=== PATIENT | female | born 1950 | race Two or more races ===

== ENCOUNTER 2020-02-13 10:00 | Outpatient (RCR) | payer MEDICARE, SELFPAY | END 2020-02-21 13:49 | disposition other institution (70) | LOC: HO.PT 10:00 | PROVIDERS: PCP Family Medicine; Visit Provider Family Medicine | DX: M54.5 Low back pain (principal); G89.29 Other chronic pain | CPT/HCPCS: 97110 ==

== ENCOUNTER 2020-02-15 10:34 | Outpatient (REF) | payer MEDICARE, SELFPAY ==
--- NOTE | 2020-02-15 | MM_ITS ---
EXAMINATION: MM SCREENING DIGITAL BREAST TOMOSYNTHESIS, BILATERAL CLINICAL INFORMATION: Screening. Asymptomatic. The lifetime risk of breast cancer based on the Jami score Model is 4.9%. COMPARISON: Mammography: February 09, 2019 and studies dating back to April 13, 2012 TECHNIQUE: Digital breast tomosynthesis is performed in both the craniocaudal and mediolateral oblique views along with computer-aided detection (CAD). Synthesized 2D images are generated from the tomosynthesis. FINDINGS: There are scattered areas of fibroglandular density (ACR BI-RADS breast composition Category b). There are no significant masses, abnormal calcifications, or other abnormalities. Stable nodular parenchymal pattern calcifications again seen. IMPRESSION: There are no significant changes from prior study. ASSESSMENT: BI-RADS 2: Benign RECOMMENDATION: Routine annual mammography screening. This patient's information was entered into a reminder system with a target due date for their next mammogram.
== END 2020-02-15 10:35 | disposition home or self-care (01) ==
LOC: HO.MAMMO 10:34
PROVIDERS: PCP Family Medicine; Visit Provider Family Medicine
DX: Z12.31 Encounter for screening mammogram for malignant neoplasm of breast (principal)
CPT/HCPCS: 77063; 77067

== ENCOUNTER 2020-08-08 10:28 | Outpatient (REF) | payer MEDICARE, SELFPAY ==
--- NOTE | ~2020-08-08 | MM_ITS ---
EXAMINATION: BONE DENSITOMETRY CLINICAL INDICATION: Screening for osteoporosis. COMPARISON: Baseline BD dated 11/07/2015. TECHNIQUE: Using a [employer] DXA System (software version: 13.1) manufactured by [email or web address], dual-energy x-ray absorptiometry was performed of the lumbar spine and left hip. The images are of good technical quality. Summary results are attached. FINDINGS: AP SPINE L1-L4: Current: BMD 1.119 g/cm2, Z-score 0.9, T-score -0.5, normal, 1.8% decrease from baseline (<5% change is not significant). Baseline: BMD 1.139 g/cm2. LEFT FEMUR, NECK: Current: BMD 0.910 g/cm2, Z-score 0.6, T-score -0.9, normal. Baseline: BMD 0.931 g/cm2. LEFT FEMUR, TOTAL: Current: BMD 0.995 g/cm2, Z-score 1.2, T-score -0.1, normal, 4.8% decrease from baseline (<5% change is not significant). Baseline: BMD 1.045 g/cm2. IDENTIFIED RISK FACTORS: Height loss, low calcium intake, family history (parental hip fracture), history of fracture (adult), menopause, hysterectomy. HISTORY OF FRACTURE: Other. MEDICATIONS: Vitamin D. MM/XR DEXA axial skeleton IMPRESSION: 1. DIAGNOSIS: Normal bone density based on the lowest T-score value of -0.9 in the femoral neck applying World Health Organization criteria. 2. 10-YEAR FRACTURE RISK PREDICTION, FRAX: Major osteoporotic fracture (clinical spine, forearm, hip or shoulder) 12.1%. Hip fracture 1.2%. 3. Treatment Recommendations: NOF guidelines recommend consideration for treatment in postmenopausal women and men age 50 and older presenting with the following: -A hip or vertebral (clinical or morphometric) fracture. -T-score less than or equal to -2.5 at the femoral neck or spine after appropriate evaluation to exclude secondary causes. -Low bone mass at the hip or spine and a 10-year fracture probability by FRAX of greater than or equal to 3% for hip fracture or greater than or equal to 20% for major osteoporotic fracture based on the [place] adapted WHO algorithm. 4. Other Recommendations: All treatment decisions require clinical judgment and consideration of individual patient factors, including patient preferences, comorbidities, previous drug use, risk factors not captured in the FRAX model (e.g. frailty, falls, vitamin D deficiency, increased bone turnover, interval significant decline in bone density) and possible under or overestimation of fracture risk by FRAX. FUTURE SCAN RECOMMENDATION: People with diagnosed cases of osteoporosis or at high risk for fracture should have regular bone mineral density tests. For patients eligible for Medicare, routine testing is allowed once every 2 years. The testing frequency can be increased to one year for patients who have rapidly progressing disease, those who are receiving or discontinuing medical therapy to restore bone mass, or have additional risk factors.
== END 2020-08-08 10:29 | disposition home or self-care (01) ==
LOC: HO.MAMMO 10:28
PROVIDERS: Visit Provider Family Medicine
DX: Z13.820 Encounter for screening for osteoporosis (principal); Z78.0 Asymptomatic menopausal state; R29.890 Loss of height; E83.51 Hypocalcemia; Z90.710 Acquired absence of both cervix and uterus
CPT/HCPCS: 77080

== ENCOUNTER → 2020-09-05 10:58 | Outpatient (BNVA) | payer MEDICARE, SELFPAY | PROVIDERS: PCP Family Medicine; Visit Provider Urology | DX: N39.41 Urge incontinence (principal); N39.0 Urinary tract infection, site not specified | CPT/HCPCS: 51798; 81002; 99212 ==

== ENCOUNTER → 2020-10-07 09:06 | Outpatient (BNVA) | payer MEDICARE, SELFPAY | PROVIDERS: PCP Family Medicine | DX: N39.0 Urinary tract infection, site not specified (principal); N39.41 Urge incontinence | CPT/HCPCS: 99212 ==

== ENCOUNTER → 2020-10-24 11:02 | Outpatient (BNVA) | payer OTHER, SELFPAY | PROVIDERS: PCP Family Medicine; Visit Provider Urology | DX: N39.41 Urge incontinence (principal); N39.0 Urinary tract infection, site not specified; N81.9 Female genital prolapse, unspecified | CPT/HCPCS: 52000; 99212 ==

== ENCOUNTER 2021-03-02 09:57 | Outpatient (REF) | payer MEDICARE, SELFPAY ==
--- NOTE | ~2021-03-02 | MM_ITS ---
EXAMINATION: MM SCREENING DIGITAL BREAST TOMOSYNTHESIS, BILATERAL CLINICAL INFORMATION: Screening. Asymptomatic. The lifetime risk of breast cancer based on the Tyrer-Cuzick Model is 5%. COMPARISON: Mammography: 02/15/2020, 02/09/2019, 02/01/2018 TECHNIQUE: Digital breast tomosynthesis is performed in both the craniocaudal and mediolateral oblique views along with computer-aided detection (CAD). Synthesized 2D images are generated from the tomosynthesis. Additional left MLO view is provided. FINDINGS: There are scattered areas of fibroglandular density (ACR BI-RADS breast composition Category b). There are no significant masses, abnormal calcifications, or other abnormalities. Background stromal markings are stable. There is small stable nodule anterior upper outer right breast. Again, there are scattered round dense vascular calcifications. No significant changes from prior studies. MM/MM tomosynthesis screening BI IMPRESSION: No mammographic evidence of malignancy. ASSESSMENT: BI-RADS 2: Benign RECOMMENDATION: Routine annual mammography screening. This patient's information was entered into a reminder system with a target due date for their next mammogram.
== END 2021-03-02 09:58 | disposition home or self-care (01) ==
LOC: HO.MAMMO 09:57
PROVIDERS: PCP Family Medicine; Visit Provider Family Medicine
DX: Z12.31 Encounter for screening mammogram for malignant neoplasm of breast (principal)
CPT/HCPCS: 77063; 77067

== ENCOUNTER 2021-04-03 09:55 | Outpatient (REF) | payer MEDICARE, SELFPAY ==
--- NOTE | ~2021-04-03 | XR_ITS ---
EXAMINATION: XR ANKLE, RIGHT CLINICAL INFORMATION: Right ankle pain. COMPARISON: None TECHNIQUE: AP, lateral, and mortise views of the right ankle. FINDINGS: There is no fracture or dislocation. The ankle mortise is congruent. Osteophyte formation along the ankle mortise. Diffuse soft tissue swelling. Small ankle joint effusion. Small heel spurs are noted. Osteophyte formation at the talonavicular joint. XR/XR ankle RT min 3V IMPRESSION: Mild degenerative changes of the ankle. Diffuse soft tissue swelling.
== END 2021-04-03 09:56 | disposition home or self-care (01) ==
LOC: HO.XRAY 09:55
PROVIDERS: PCP Family Medicine; Visit Provider Family Medicine
DX: M25.571 Pain in right ankle and joints of right foot (principal)
CPT/HCPCS: 73610

== ENCOUNTER 2021-04-28 11:00 | Outpatient (RCR) | payer MEDICARE, SELFPAY | END 2021-05-04 15:44 | disposition home or self-care (01) | LOC: HO.PT 11:00 | PROVIDERS: PCP Family Medicine; Visit Provider Family Medicine | DX: M25.512 Pain in left shoulder (principal) | CPT/HCPCS: 97110; 97140; 97161 ==

== ENCOUNTER 2021-07-01 13:21 | Outpatient (REF) | payer MEDICARE, SELFPAY ==
--- NOTE | ~2021-07-01 | US_ITS ---
EXAMINATION: US VENOUS ULTRASOUND WITH DOPPLER LOWER EXTREMITY, RIGHT CLINICAL INFORMATION: Right calf/ankle edema evaluate for DVT COMPARISON: There some bilateral venous reflux lower extremity from 03/15/2017 TECHNIQUE: Ultrasound of the deep veins is performed from the hip to the calf with compression sonography and color and pulse Doppler assessment. Spectral analysis with color-flow imaging is performed. FINDINGS: There is normal venous compression and respiratory variation and augmented flow. The visualized common femoral vein, superficial femoral vein, profunda femoral vein, popliteal vein, and the trifurcation region shows no evidence of deep venous thrombosis. There is no significant popliteal fossa cyst. Several mildly prominent lymph nodes are identified in the right groin, nonspecific though may reflect recent infectious/inflammatory etiology If the patient's symptoms persist, followup ultrasound in 5 days 7 days might be of value to exclude proximal propagation from a non-visualized calf vein. US/US venous duplex LE RT IMPRESSION: 1. No DVT demonstrated in the right lower extremity. 2. Several mildly prominent lymph nodes are identified in the right groin, nonspecific though may reflect recent infectious/inflammatory etiology.
== END 2021-07-01 13:22 | disposition home or self-care (01) ==
LOC: HO.US 13:21
PROVIDERS: PCP Family Medicine; Visit Provider Emergency Medicine
DX: R60.0 Localized edema (principal)
CPT/HCPCS: 93971

== ENCOUNTER 2021-11-20 11:55 | Outpatient (REF) | payer OTHER, SELFPAY ==
[2021-11-20 13:29] LABS: Estimated Average Glucose 105 mg/dL; Hemoglobin A1c % 5.3 %
== END 2021-11-20 11:56 | disposition home or self-care (01) ==
LOC: HO.LAB 11:55
PROVIDERS: PCP Family Medicine; Visit Provider Physician Assistant
DX: E11.40 Type 2 diabetes mellitus with diabetic neuropathy, unspecified (principal)
CPT/HCPCS: 36415; 83036

== ENCOUNTER 2022-01-01 11:00 | Outpatient (RCR) | payer OTHER, SELFPAY ==
[2021-12-04 11:12] VITALS: BP 143/71; PULSE 71; O2SAT 96
== END 2022-03-11 08:52 | disposition home or self-care (01) ==
LOC: HO.PT 11:00
PROVIDERS: PCP Family Medicine; Visit Provider Physician Assistant
DX: M21.41 Flat foot [pes planus] (acquired), right foot (principal)
CPT/HCPCS: 97110; 97162; 97530

== ENCOUNTER 2022-01-01 12:01 | Outpatient (REF) | payer OTHER, SELFPAY ==
--- NOTE | ~2022-01-01 | XR_ITS ---
EXAMINATION: XR FOREARM, RIGHT CLINICAL INFORMATION: Injury of right shoulder and upper arm COMPARISON: None TECHNIQUE: AP and lateral views of the right forearm were obtained. FINDINGS: The bones and soft tissues are normal. No fracture. Imaged portions of the elbow and wrist are unremarkable. XR/XR forearm RT 2V IMPRESSION: Normal right forearm.
== END 2022-01-01 12:02 | disposition home or self-care (01) ==
LOC: HO.XRAY 12:01
PROVIDERS: Absent Provider Family Medicine; PCP Family Medicine; Visit Provider Family Medicine
DX: M79.601 Pain in right arm (principal); S49.91XA Unspecified injury of right shoulder and upper arm, initial encounter
CPT/HCPCS: 73090

== ENCOUNTER 2022-03-09 09:58 | Outpatient (REF) | payer OTHER, SELFPAY ==
--- NOTE | ~2022-03-09 | MM_ITS ---
EXAMINATION: MM SCREENING DIGITAL BREAST TOMOSYNTHESIS, BILATERAL CLINICAL INFORMATION: Screening. Asymptomatic. COMPARISON: Mammography: March 02, 2021 and studies dating back to October 08, 2015 TECHNIQUE: Digital breast tomosynthesis is performed in both the craniocaudal and mediolateral oblique views along with computer-aided detection (CAD). Synthesized 2D images are generated from the tomosynthesis. FINDINGS: There are scattered areas of fibroglandular density (ACR BI-RADS breast composition Category b). There are no significant masses, abnormal calcifications, or other abnormalities. MM/MM tomosynthesis screening BI IMPRESSION: No significant changes from prior exam. ASSESSMENT: BI-RADS 1: Negative RECOMMENDATION: Routine annual mammography screening. This patient's information was entered into a reminder system with a target due date for their next mammogram.
== END 2022-03-09 09:59 | disposition home or self-care (01) ==
LOC: HO.MAMMO 09:58
PROVIDERS: PCP Family Medicine; Visit Provider Family Medicine
DX: Z12.31 Encounter for screening mammogram for malignant neoplasm of breast (principal)
CPT/HCPCS: 77063; 77067

== ENCOUNTER → 2022-03-24 08:07 | Outpatient (BNVA) | payer OTHER, SELFPAY | PROVIDERS: PCP Family Medicine; Visit Provider Urology | DX: N81.9 Female genital prolapse, unspecified (principal); N39.41 Urge incontinence | CPT/HCPCS: 99212 ==

== ENCOUNTER 2022-03-29 07:58 | Outpatient (RCR) | payer OTHER, SELFPAY | END 2022-03-30 14:15 | disposition home or self-care (01) | LOC: HO.WCC 07:58 | PROVIDERS: PCP Family Medicine; Visit Provider Physician Assistant | DX: L97.812 Non-pressure chronic ulcer of other part of right lower leg with fat layer exposed (principal); I73.9 Peripheral vascular disease, unspecified; I87.2 Venous insufficiency (chronic) (peripheral); R60.9 Edema, unspecified; R73.03 Prediabetes; I10 Essential (primary) hypertension; Z86.73 Personal history of transient ischemic attack (TIA), and cerebral infarction without residual deficits | CPT/HCPCS: 99213 ==

== ENCOUNTER 2022-09-13 08:36 | Outpatient (REF) | payer OTHER, SELFPAY ==
--- NOTE | ~2022-09-13 | MR_ITS ---
EXAMINATION: MR FOOT WITHOUT CONTRAST, RIGHT CLINICAL INFORMATION: Right foot pain and swelling. Midfoot osteoarthritis. Gout. COMPARISON: Right ankle radiographs dated 04/03/2021. TECHNIQUE: Multisequence MR imaging of the right foot was obtained without contrast on a high-field strength scanner. FINDINGS: BONE: Full-thickness articular cartilage loss with underlying subchondral cystic change and marginal osteophytes at the 2nd through 5th tarsometatarsal joints. Articular cartilage thinning with tiny marginal osteophytes at the hallux sesamoids. No metatarsal stress fracture or reaction. No concerning lytic or blastic osseous lesion. MUSCLES/TENDONS: The visualized flexor and extensor tendons are intact. No transverse tendon tear or tendon retraction. LIGAMENTS: Intact Lisfranc ligament. The plantar plates are intact. SOFT TISSUES: Prominent dorsal subcutaneous edema with more circumferential subcutaneous edema involving the toes. No organized fluid collection or abscess formation. MR/MR foot RT wo con IMPRESSION: 1. Prominent dorsal subcutaneous edema with more circumferential subcutaneous edema involving the toes. No organized fluid collection or abscess formation. 2. [id number] osteoarthritis at the 2nd through 5th tarsometatarsal joints as well as more mild osteoarthritis at the hallux sesamoids. 3. No acute osseous abnormality.
== END 2022-09-13 08:37 | disposition home or self-care (01) ==
LOC: HO.MRI 08:36
PROVIDERS: PCP Family Medicine; Visit Provider Family Medicine
DX: M79.671 Pain in right foot (principal)
CPT/HCPCS: 73718

== ENCOUNTER → 2022-09-16 11:05 | Outpatient (BNVA) | payer OTHER, SELFPAY | PROVIDERS: PCP Family Medicine; Visit Provider Nurse Practitioner Family | DX: M71.171 Other infective bursitis, right ankle and foot (principal); M79.604 Pain in right leg; M19.079 Primary osteoarthritis, unspecified ankle and foot; M25.571 Pain in right ankle and joints of right foot | CPT/HCPCS: 99202 ==

== ENCOUNTER 2022-09-16 11:48 | Emergency (ER) | payer OTHER, SELFPAY ==
--- NOTE | ~2022-09-16 | US_ITS ---
EXAMINATION: US VENOUS ULTRASOUND WITH DOPPLER LOWER EXTREMITY, RIGHT CLINICAL INFORMATION: Elevated d-dimer COMPARISON: None available. TECHNIQUE: Ultrasound of the deep veins is performed from the hip to the calf with compression sonography and color and pulse Doppler assessment. Spectral analysis with color-flow imaging is performed. FINDINGS: There is normal venous compression and respiratory variation and augmented flow. The visualized common femoral vein, superficial femoral vein, profunda femoral vein, popliteal vein, and the trifurcation region shows no evidence of deep venous thrombosis. Minimally prominent 3 x 1.8 x 0.8 cm lymph node present in the right groin. No Castro's cyst. If the patient's symptoms persist, followup ultrasound in 5 days 7 days might be of value to exclude proximal propagation from a non-visualized calf vein. US/US venous duplex LE RT IMPRESSION: No DVT demonstrated in the right lower extremity.
[2022-09-16 11:52] VITALS: BP 155/72; PULSE 70; RESP 20; TEMP 36.8; O2SAT 97; BMI 30.8
--- NOTE | 2022-09-16 11:54 | ED.GENADULT ---
HPI - General Adult General Chief complaint: Extremity Problem Stated complaint: wound infection Time Seen by Provider: 09/16/22 13:27 Related Data Home Medications Medication Instructions Recorded Confirmed acetaminophen 500 mg tablet 0 mg PO 09/05/20 03/24/22 allopurinol 100 mg tablet 100 mg PO DAILY 09/05/20 03/24/22 amlodipine 10 mg tablet 10 mg PO DAILY 09/05/20 03/24/22 aspirin 81 mg tablet,delayed 81 mg PO QAM 09/05/20 03/24/22 release cholecalciferol (vitamin D3) 25 25 mcg PO DAILY 09/05/20 03/24/22 mcg (1,000 unit) tablet isosorbide mononitrate 60 mg 60 mg PO DAILY 09/05/20 03/24/22 tablet,extended release 24 hr metoprolol succinate 25 mg 25 mg PO DAILY 09/05/20 03/24/22 tablet,extended release 24 hr omega-3 fatty acids-fish oil 340 1 cap PO QAM 09/05/20 03/24/22 mg-1,000 mg capsule rosuvastatin 5 mg tablet 5 mg PO BEDTIME 09/05/20 03/24/22 sertraline 25 mg tablet 25 mg PO DAILY 09/05/20 03/24/22 sertraline 50 mg tablet 50 mg PO DAILY 09/05/20 03/24/22 vibegron 75 mg tablet (Gemtesa) 0 mg PO 09/16/22 Previous Rx's Medication Instructions Recorded ciprofloxacin HCl 250 mg tablet 250 mg PO BID 14 days #28 tabs 09/05/20 Allergies Allergy/AdvReac Type Severity Reaction Status Date / Time progesterone [Progesterone] Allergy Mild SWELLING, Verified 09/16/22 11:16 itching and swelling, body edema quinapril [Accupril] Allergy Unknown Unknown Verified 09/16/22 11:16 [facility] Past Medical History Medical History Angina pectoris Benign essential hypertension Chest discomfort Coronary artery disease involving [place] coronary artery of [place] heart with angina pectoris Impaired fasting glucose Urgency incontinence Venous insufficiency Surgical History History of surgery Social History Social History Alcohol intake: never Patient Tobacco Use Status: Never used Tobacco Advance Directives: No Physical Exam ED Vital Signs: Vital Signs - 24 hr 09/16/22 11:52 09/16/22 15:42 Temperature 98.2 F 97 F Pulse Rate 70 68 Respiratory Rate 20 16 Blood Pressure 155/72 H 140/63 H Pulse Oximetry 97 93 Oxygen Delivery Method Room Air Room Air BMI result Body Mass Index 30.8 Course Course Course Narrative: This is an RME: Additional HPI, ROS, PE not included below will be deferred to primary provider. 72-year-old female presents with pain, swelling, redness and warmth right lower extremities told to come in by her PCP has tried topical antibiotic ointments and antifungal ointment with little to no relief. This has been going on for the past few weeks worsening. Denies chest pain, shortness of breath, fevers, chills, nausea, vomiting abdominal pain, headache, vision changes, dizziness and weakness. Physical exam there is 2+ nonpitting edema to the right lower extremity, normal left lower extremity. Palpable pulses pain plan basic labs, D-dimer. Medical Decision Making Lab Data 09/16/22 12:49 09/16/22 12:49 Labs: Lab Results 09/16/22 09/16/22 09/16/22 Range/Units 12:15 12:26 12:49 WBC 6.7 (4.8-10.8) X10*3/uL RBC 4.80 (4.20-5.50) X10*6/uL Hgb 13.3 (12.0-16.0) g/dl Hct 42.3 (37.0-47.0) % MCV 88.1 (80.0-98.0) fL MCH 27.7 (27.0-33.0) pg MCHC 31.4 (31.0-35.0) g/dl RDW 15.2 (11.0-16.0) % Plt Count 230 (160-400) X10*3/uL MPV 10.8 (9.4-12.3) fL Immature Gran % (Auto) 0.3 (0.0-0.4) % Neut % (Auto) 70.1 (45-73) % Lymph % (Auto) 19.2 L (20-40) % [place] % (Auto) 9.2 (2-11) % Eos % (Auto) 0.9 (0-4) % Baso % (Auto) 0.3 (0-2) % Lymph # (Auto) 1.3 (1.2-4.9) X10*3/uL [place] # (Auto) 0.6 (0.1-1.2) X10*3/uL Eos # (Auto) 0.1 (0.0-0.4) X10*3/uL Baso # (Auto) 0.0 (0.0-0.2) X10*3/uL Abs Immat Gran (auto) 0.02 (0.00-0.03) X10*3/uL Absolute Neuts (auto) 4.7 (2.0-8.3) x10*3/uL Absolute Nucleated RBC 0.000 (0.0-0.012) X10*3/uL Nucleated RBC % (auto) 0.0 (0.0-0.2) /100WBC D-Dimer High Sensitivty 353 NG/ML Sodium (135-145) mmol/L Potassium (3.3-5.1) mmol/L Chloride (96-108) mmol/L Carbon Dioxide (22-29) mmol/L Anion Gap (12-20) BUN (9-16) mg/dL Creatinine (0.5-1.4) mg/dL Estim Creat Clear Calc Estimated GFR Random Glucose (60-115) mg/dL Calcium (8.4-10.2) mg/dL Magnesium (1.6-2.6) mg/dL Total Bilirubin (0.0-1.0) mg/dL AST (5-31) U/L ALT (0-31) U/L Alkaline Phosphatase (39-117) U/L B-Natriuretic Peptide (<100) pg/mL Total Protein (6.5-8.0) g/dL Albumin (3.5-5.0) g/dL Urine Color Yellow Urine Appearance Clear Urine pH 6.5 (5.0-9.0) Ur Specific [place] 1.015 (1.005-1.025) Urine Protein Negative (Neg-Trace) mg/dL Urine Glucose (UA) Negative (Negative) mg/dL Urine Ketones Negative (Negative) mg/dL Urine Blood Negative (Negative) Urine Nitrite Negative (Negative) Ur Leukocyte Esterase Small (1+) H (Negative) Urine RBC 0-2 (0-2) /HPF Urine WBC 0-5 (0-5) /HPF Ur Squamous Epith Cells 6-10 (0-2) /HPF Urine Bacteria 2+ (None Seen) Hyaline Casts 0-2 (0-2) /LPF 09/16/22 09/16/22 Range/Units 12:49 12:49 WBC (4.8-10.8) X10*3/uL RBC (4.20-5.50) X10*6/uL Hgb (12.0-16.0) g/dl Hct (37.0-47.0) % MCV (80.0-98.0) fL MCH (27.0-33.0) pg MCHC (31.0-35.0) g/dl RDW (11.0-16.0) % Plt Count (160-400) X10*3/uL MPV (9.4-12.3) fL Immature Gran % (Auto) (0.0-0.4) % Neut % (Auto) (45-73) % Lymph % (Auto) (20-40) % [place] % (Auto) (2-11) % Eos % (Auto) (0-4) % Baso % (Auto) (0-2) % Lymph # (Auto) (1.2-4.9) X10*3/uL [place] # (Auto) (0.1-1.2) X10*3/uL Eos # (Auto) (0.0-0.4) X10*3/uL Baso # (Auto) (0.0-0.2) X10*3/uL Abs Immat Gran (auto) (0.00-0.03) X10*3/uL Absolute Neuts (auto) (2.0-8.3) x10*3/uL Absolute Nucleated RBC (0.0-0.012) X10*3/uL Nucleated RBC % (auto) (0.0-0.2) /100WBC D-Dimer High Sensitivty NG/ML Sodium 143 (135-145) mmol/L Potassium 4.4 (3.3-5.1) mmol/L Chloride 110 H (96-108) mmol/L Carbon Dioxide 24 (22-29) mmol/L Anion Gap 13 (12-20) BUN 16 (9-16) mg/dL Creatinine 0.74 (0.5-1.4) mg/dL Estim Creat Clear Calc 64.1 Estimated GFR > 60 Random Glucose 102 (60-115) mg/dL Calcium 9.1 (8.4-10.2) mg/dL Magnesium 2.4 (1.6-2.6) mg/dL Total Bilirubin 0.6 (0.0-1.0) mg/dL AST 18 (5-31) U/L ALT 15 (0-31) U/L Alkaline Phosphatase 88 (39-117) U/L B-Natriuretic Peptide 50 (<100) pg/mL Total Protein 7.2 (6.5-8.0) g/dL Albumin 4.1 (3.5-5.0) g/dL Urine Color Urine Appearance Urine pH (5.0-9.0) Ur Specific [place] (1.005-1.025) Urine Protein (Neg-Trace) mg/dL Urine Glucose (UA) (Negative) mg/dL Urine Ketones (Negative) mg/dL Urine Blood (Negative) Urine Nitrite (Negative) Ur Leukocyte Esterase (Negative) Urine RBC (0-2) /HPF Urine WBC (0-5) /HPF Ur Squamous Epith Cells (0-2) /HPF Urine Bacteria (None Seen) Hyaline Casts (0-2) /LPF Radiology Impression Discussion of test interpretation with radiology: I have reviewed the radiologist's reading. ( lower extremity ultrasound to rule out DVT.) Radiologist Impression: FINDINGS: There is normal venous compression and respiratory variation and augmented flow. The visualized common femoral vein, superficial femoral vein, profunda femoral vein, popliteal vein, and the trifurcation region shows no evidence of deep venous thrombosis. ? Minimally prominent 3 x 1.8 x 0.8 cm lymph node present in the right groin. No Castro's cyst. If the patient's symptoms persist, followup ultrasound in 5 days 7 days might be of value to exclude proximal propagation from a non-visualized calf vein. US/US venous duplex LE RT IMPRESSION: No DVT demonstrated in the right lower extremity. Discharge Plan Discharge Prescriptions: No Action cholecalciferol (vitamin D3) 25 mcg (1,000 unit) tablet 25 mcg PO DAILY sertraline 50 mg tablet 50 mg PO DAILY sertraline 25 mg tablet 25 mg PO DAILY amlodipine 10 mg tablet 10 mg PO DAILY acetaminophen 500 mg tablet 0 mg PO allopurinol 100 mg tablet 100 mg PO DAILY rosuvastatin 5 mg tablet 5 mg PO BEDTIME metoprolol succinate 25 mg tablet extended release 24 hr 25 mg PO DAILY isosorbide mononitrate 60 mg tablet extended release 24 hr 60 mg PO DAILY aspirin 81 mg tablet,delayed release (DR/EC) 81 mg PO QAM Fish Oil 340-1,000 mg capsule 1 cap PO QAM ciprofloxacin HCl 250 mg tablet 250 mg PO BID 14 Days Qty: 28 0RF Gemtesa 75 mg tablet 0 mg PO
[2022-09-16 12:45] LABS: Appearance Urine Clear; Color Urine Yellow; Glucose Urine UA Negative (Negative); Leukocyte Esterase Urine Small (1+) (Negative); Nitrite Urine Negative (Negative); PH 6.5 (5.0-9.0); Specific Gravity - Urine 1.015 (1.005-1.025); UMIC TRIGGER UACC YES; Urine Blood Negative (Negative); Urine Ketones Negative (Negative); Urine Protein Negative (Neg-Trace)
[2022-09-16 12:49] LABS: D Dimer High Sensitivity 353 NG/ML
[2022-09-16 12:56] LABS: MANUAL DIFF FLAG NO
[2022-09-16 13:03] LABS: Basophils Percent Auto 0.3 % (0-2); Eosinophils Absolute Auto 0.1 X10*3/uL (0.0-0.4); Eosinophils Percent Auto 0.9 % (0-4); Hematocrit 42.3 % (37.0-47.0); Hemoglobin 13.3 g/dl (12.0-16.0); Imm Gran Abs Auto 0.02 X10*3/uL (0.00-0.03); Imm Gran Pct Auto 0.3 % (0.0-0.4); Lymphocytes Absolute Auto 1.3 X10*3/uL (1.2-4.9); Lymphocytes Percent Auto 19.2 % (20-40); Mean Corpuscular HGB Conc 31.4 g/dl (31.0-35.0); Mean Corpuscular Hemoglobin 27.7 pg (27.0-33.0); Mean Corpuscular Volume 88.1 fL (80.0-98.0); Mean Platelet Volume 10.8 fL (9.4-12.3); Monocytes Absolute Auto 0.6 X10*3/uL (0.1-1.2); Monocytes Percent Auto 9.2 % (2-11); Neutrophils Absolute Auto 4.7 x10*3/uL (2.0-8.3); Neutrophils Percent Auto 70.1 % (45-73); Platelet Count 230 X10*3/uL (160-400); Red Cell Distribution Width 15.2 % (11.0-16.0); White Blood Count 6.7 X10*3/uL (4.8-10.8)
[2022-09-16 13:06] LABS: Bacteria Urine 2+ (None Seen); Hyaline Casts Urine 0-2 /LPF (0-2); RBC Urine 0-2 /HPF (0-2); UACC Culture Trigger YES; WBC Urine 0-5 /HPF (0-5)
[2022-09-16 13:18] LABS: Alanine Aminotransferase 15 U/L (0-31); Albumin Level 4.1 g/dL (3.5-5.0); Alkaline Phosphatase 88 U/L (39-117); Anion Gap 13 (12-20); Aspartate Amino Transferase 18 U/L (5-31); Bilirubin Total 0.6 mg/dL (0.0-1.0); Blood Urea Nitrogen 16 mg/dL (9-16); Calcium 9.1 mg/dL (8.4-10.2); Carbon Dioxide 24 mmol/L (22-29); Chloride 110 mmol/L (96-108); Creatinine Clr Calc Pharmacy 64.1; Estimated Glomerular Filt Rate > 60; Glucose Random 102 mg/dL (60-115); Magnesium 2.4 mg/dL (1.6-2.6); Potassium 4.4 mmol/L (3.3-5.1); Sodium 143 mmol/L (135-145); Total Protein 7.2 g/dL (6.5-8.0)
[2022-09-16 13:24] LABS: B Type Natriuretic Peptide 50 pg/mL (<100)
--- NOTE | 2022-09-16 15:25 | PC.NURSE ---
US at bedside
[2022-09-16 15:42] VITALS: BP 140/63; PULSE 68; RESP 16; TEMP 36.1; O2SAT 93
[2022-09-16] MEDS: Doxycycline Monohydrate 100 MG CAPSULE PO (16:31)
== END 2022-09-16 16:36 | disposition home or self-care (01) ==
PROVIDERS: Physician Assistant; Emergency Provider Student in an Organized Health Care Education/Training Program; PCP Family Medicine
DX: M71.171 Other infective bursitis, right ankle and foot (principal); M19.071 Primary osteoarthritis, right ankle and foot; M79.604 Pain in right leg; M25.571 Pain in right ankle and joints of right foot; R60.0 Localized edema; I10 Essential (primary) hypertension; Z79.899 Other long term (current) drug therapy
CPT/HCPCS: 36415; 80053; 81001; 83735; 83880; 85025; 85379; 87086; 93971; 99284

== ENCOUNTER → 2022-09-24 13:12 | Outpatient (BNVA) | payer OTHER, SELFPAY | PROVIDERS: PCP Family Medicine; Visit Provider Internal Medicine | DX: M25.571 Pain in right ankle and joints of right foot (principal) | CPT/HCPCS: 99212 ==

== ENCOUNTER 2022-11-30 19:04 | Outpatient (REF) | payer OTHER, SELFPAY ==
[2022-11-30 19:22] LABS: Appearance Urine Clear; Color Urine Yellow; Glucose Urine UA Negative (Negative); Leukocyte Esterase Urine Trace (Negative); Nitrite Urine Negative (Negative); PH 6.5 (5.0-9.0); UMIC TRIGGER UACC YES; Urine Blood Negative (Negative); Urine Ketones Negative (Negative); Urine Protein Negative (Neg-Trace)
[2022-11-30 19:29] LABS: Bacteria Urine None Seen (None Seen); Hyaline Casts Urine 0-2 /LPF (0-2); RBC Urine 0-2 /HPF (0-2); WBC Urine 0-5 /HPF (0-5)
== END 2022-11-30 19:05 | disposition home or self-care (01) ==
LOC: HO.HHCLNP 19:04
PROVIDERS: Visit Provider Family Medicine
DX: M54.50 Low back pain, unspecified (principal)
CPT/HCPCS: 81001

== ENCOUNTER 2023-03-16 09:41 | Outpatient (REF) | payer OTHER, SELFPAY ==
--- NOTE | ~2023-03-16 | MM_ITS ---
EXAMINATION: MM SCREENING DIGITAL BREAST TOMOSYNTHESIS, BILATERAL CLINICAL INFORMATION: Screening. Asymptomatic. COMPARISON: Mammography: This study is compared with prior exams dating back to 2016. TECHNIQUE: Digital breast tomosynthesis is performed in both the craniocaudal and mediolateral oblique views along with computer-aided detection (CAD). Synthesized 2D images are generated from the tomosynthesis. FINDINGS: There are scattered areas of fibroglandular density (ACR BI-RADS breast composition Category b). There are no significant masses, abnormal calcifications, or other abnormalities. MM/MM tomosynthesis screening BI IMPRESSION: No mammographic evidence of malignancy. ASSESSMENT: BI-RADS BI-RADS 1 - Negative RECOMMENDATION: Routine annual mammography screening. 1 year F/U This examination should not preclude the clinical evaluation of a suspicious palpable abnormality. This patient's information was entered into a reminder system with a target due date for their next mammogram.
== END 2023-03-16 09:42 | disposition home or self-care (01) ==
LOC: HO.MAMMO 09:41
PROVIDERS: PCP Family Medicine; Visit Provider Family Medicine
DX: Z12.31 Encounter for screening mammogram for malignant neoplasm of breast (principal)
CPT/HCPCS: 77063; 77067

== ENCOUNTER → 2023-03-16 09:45 | Outpatient (BNV) | payer OTHER, SELFPAY | PROVIDERS: PCP Family Medicine; Visit Provider Radiology Diagnostic Radiology | DX: Z12.31 Encounter for screening mammogram for malignant neoplasm of breast (principal) | CPT/HCPCS: 77063; 77067 ==

== ENCOUNTER 2023-03-22 09:22 | Outpatient (AMB) | payer OTHER, SELFPAY ==
--- NOTE | 2023-03-22 09:42 | MHC.OFFVIS ---
Intake Intake Visit Reasons: Prolapse- 1yr follow up Intake Note: Patient is Present for Follow Up Urology Medication: Estradiol, Gemtesa Antibiotic Allergies: None Blood Thinners: None Allergies progesterone [Progesterone] Allergy (Mild, Verified 09/24/22 13:26) SWELLING, itching and swelling, body edema quinapril [Accupril] Allergy (Unknown, Verified 09/24/22 13:26) Unknown HPI HPI Comments History of Present Illness Details Ariana is a pleasant female. She is a patient of Dr. Renteria. She is seen for the following urologic issues - urinary urgency - urinary frequency - urge incontinence Welsh translation provided in office by qualified medical center manager Had come off estradiol and has recurrence of urinary urgency Restart estradiol Urinary urgency continues to respond to combination of tolterodine with estradiol 2 times a week to urethra 6 month follow-up Urge incontinence Had responded to Myrbetriq 50 mg p.o. b.i.d. but associated with headaches Effective control gained with tolterodine and topical estradiol Side effects acceptable Patient with a midline cystocele offered treatment patient does not wish to pursue treatment she remains asymptomatic. 05/11/2019 Elevated BMI increase activities and decrease her calories Prolapse Repair at [facility] Urogynecology June 2021 Good outcome regarding this stress incontinence [facility] Medical History Angina pectoris Benign essential hypertension Chest discomfort Coronary artery disease involving [place] coronary artery of [place] heart with angina pectoris Impaired fasting glucose Urgency incontinence Venous insufficiency Surgical History History of surgery Alcohol intake: never Patient Tobacco Use Status: Never used Tobacco Review of Systems Const Denies chills and Denies fever(s) Card Reports no additional complaints and Denies syncope Resp Denies cough GI Denies abdominal pain and Denies heartburn Reports as per HPI and Denies change in libido Neuro Denies syncope Psych Denies change in libido Endo Denies change in libido Physical Exam Const General: cooperative, healthy appearing, comfortable and no acute distress Orientation/consciousness: patient oriented x3 HEENT Face and sinus: Yes normal facial exam Mouth: moist mucous membranes Neck Neck: Yes normal visual inspection, Yes full ROM and Yes trachea midline Chest Chest palpation & inspection: normal inspection of the chest Resp Effort & Inspection: normal respiratory effort, able to speak in complete sentences and no respiratory distress GI Inspection: Yes normal to inspection Back/Spine/Pelvis Cervical Spine: normal cervical lordosis Thoracic/Lumbar Spine: thoracic and lumbar spine normal to inspection Skin General skin exam: no rashes or lesions noted Neuro General: patient oriented x3, gait normal, tone normal and moves all extremities Extrem General: Yes normal to inspection and Yes capillary refill normal Assessment & Plan Assessment & Plan (1) Recurrent UTI (urinary tract infection): Code(s): N39.0 - Urinary tract infection, site not specified (2) Urgency incontinence: Code(s): N39.41 - Urge incontinence Plan Six month follow-up Patient Instructions: Imaging studies, laboratory and physical exam results were discussed and reviewed in detail. No major barriers to patient understanding were identified. An opportunity to ask questions regarding the treatment plan was provided. All questions were answered. The patient expressed understanding and agreement with the above treatment plan. The patient is aware they should contact our office by phone for worsening of their current condition or the appearance of new urologic symptoms. Compliance is encouraged with any medications and followup testing that is ordered. It is a privilege to participate in the urologic care of your patient. If you have any questions or concerns regarding treatment for the above conditions, or other urologic issues, please do not hesitate to contact me. The office telephone contact is [phone]. This note is constructed using voice recognition software. While every effort has been made to ensure accuracy air conditioner installer helper errors may have been included. Yours sincerely, Dr Fernando Cat MD, [facility] - Urology Providers of Expert, Compassionate Care for the Genitourinary System Coding Level of Care Code Est Pt Level 4 (31872) Diagnoses Recurrent UTI (urinary tract infection) N39.0 Urgency incontinence N39.41
== END 2023-03-22 09:49 | disposition home or self-care (01) ==
PROVIDERS: Visit Provider Urology
DX: N39.0 Urinary tract infection, site not specified (principal); N39.41 Urge incontinence
CPT/HCPCS: 99214

== ENCOUNTER → 2023-03-22 09:22 | Outpatient (BNVA) | payer OTHER, SELFPAY | PROVIDERS: Visit Provider Urology | DX: N39.41 Urge incontinence (principal); N39.0 Urinary tract infection, site not specified | CPT/HCPCS: 99212 ==

== ENCOUNTER 2023-07-22 09:39 | Outpatient (REF) | payer OTHER, SELFPAY ==
[2023-07-22 12:03] LABS: Estimated Average Glucose 105 mg/dL; Hemoglobin A1C 126.3337 umol/L; Hemoglobin A1c % 5.3 % (<6.0)
[2023-07-22 12:10] LABS: Alanine Aminotransferase 12 U/L (0-31); Albumin Level 4.2 g/dL (3.5-5.0); Alkaline Phosphatase 94 U/L (39-117); Anion Gap 11 (12-20); Aspartate Amino Transferase 16 U/L (5-31); Bilirubin Total 0.6 mg/dL (0.0-1.0); Blood Urea Nitrogen 18 mg/dL (9-16); Calcium 9.5 mg/dL (8.4-10.2); Carbon Dioxide 28 mmol/L (22-29); Chloride 105 mmol/L (96-108); Cholesterol 116 mg/dL (<200); Estimated Glomerular Filt Rate > 60; Glucose Random 74 mg/dL (60-115); HDL Cholesterol 44 mg/dL (>40); LDL Cholesterol Calculated 48 mg/dL (<100); Potassium 3.4 mmol/L (3.3-5.1); Sodium 141 mmol/L (135-145); Total Protein 7.6 g/dL (6.5-8.0); Triglycerides 123 mg/dL (<150); Uric Acid 3.6 mg/dL (2.4-5.7)
[2023-07-22 13:12] LABS: Reflex LDLD? No
== END 2023-07-22 09:40 | disposition home or self-care (01) ==
LOC: HO.HHCL 09:39
PROVIDERS: Visit Provider Family Medicine
DX: I10 Essential (primary) hypertension (principal); M10.9 Gout, unspecified
CPT/HCPCS: 36415; 80053; 80061; 83036; 84550

== ENCOUNTER 2023-09-20 09:34 | Outpatient (AMB) | payer OTHER, SELFPAY ==
--- NOTE | 2023-09-20 09:49 | A.OFFVIS_ITS ---
Intake Visit Reasons: 6m follow up Intake Note: Patient is Present for Follow Up Urgency and Recurrent Uti Urology Medication: Estradiol, Gemtesa Antibiotic Allergies: None Blood Thinners: None PVR: 27ml's Clutch Operator Required: Yes Clutch Operator Name: HERBERT CARRILLOIMANI Accompanied by: Self / Same As Patient Allergies progesterone [Progesterone] Allergy (Mild, Verified 09/20/23 11:26) SWELLING, itching and swelling, body edema quinapril [Accupril] Allergy (Unknown, Verified 09/20/23 11:26) Unknown Medication List - Last Reconciled 09/20/23 by SOLO Jiménez-JAMISON acetaminophen 0 mg PO allopurinol 100 mg PO DAILY amlodipine 10 mg PO DAILY aspirin 81 mg PO QAM cholecalciferol (vitamin D3) 25 mcg PO DAILY ciprofloxacin HCl 250 mg PO BID 14 days d-mannose mg PO estradiol 0.01%(0.1mg/gram) 1 appful vaginal DAILY fluocinolone 0.025% 1 appl topical BID isosorbide mononitrate ER 60 mg PO DAILY metoprolol succinate ER 25 mg PO DAILY omega-3 fatty acids-fish oil 340-1,000 mg 1 cap PO QAM rosuvastatin 5 mg PO BEDTIME sertraline 25 mg PO DAILY sertraline 50 mg PO DAILY vibegron (Gemtesa) 0 mg PO vit C-E-zinc ph-thxj-tqc-zeax 250 mg-200 unit -12.5 mg-1 mg (ICaps AREDS2) caps PO HPI Comments Details: Ariana is a pleasant 73-year-old Lithuanian-speaking female patient of Dr. Renteria. She has a past medical history of venous insufficiency, hypertension, coronary artery disease, angina, and urgency incontinence. She presents to the office today for follow-up of her lower urinary tract symptoms (urinary urgency, urinary frequency, urge incontinence). In discussion with the patient today she reports compliance with Estrace cream and Gemtesa as prescribed. She reports feeling lower urinary tract symptoms have significantly improved. She does continue to report episodes of nocturia 2-3 times per night as well as intermittent infrequent episodes of stress incontinence while grocery shopping. She does not find them bothersome. She would like to continue with lifestyle modifications at this time in office urinalysis results reviewed with the patient today. PVR 27 mL. She has previously trialed tolterodine with no improvement and Myrbetriq but was associated with headaches. She currently denies urinary urgency, urinary frequency, incontinence, nocturia, hematuria, dysuria, foul smelling urine, changes to urinary stream, flank pain, fever, and or chills. She is happy with her current voiding parameters. PREVIOUS NOTE: Urge incontinence Had responded to Myrbetriq 50 mg p.o. b.i.d. but associated with headaches Effective control gained with tolterodine and topical estradiol Side effects acceptable Patient with a midline cystocele offered treatment patient does not wish to pursue treatment she remains asymptomatic. 05/11/2019 Elevated BMI increase activities and decrease her calories Prolapse Repair at [facility] Urogynecology June 2021 Good outcome regarding this stress incontinence. [facility] Medical History Impaired fasting glucose Venous insufficiency Benign essential hypertension Chest discomfort Coronary artery disease involving [place] coronary artery of [place] heart with angina pectoris Angina pectoris Urgency incontinence Surgical History History of surgery Social History Alcohol intake: never Patient Tobacco Use Status: Never used Tobacco Review of Systems Const Reports no additional complaints Eyes Reports no additional complaints ENT Reports no additional complaints Card Reports as per HPI Resp Reports no additional complaints GI Reports no additional complaints Reports as per HPI Musc Reports no additional complaints Neuro Reports no additional complaints Psych Reports no additional complaints Endo Reports no additional complaints Kyaw/Lymph Reports no additional complaints Aller/Immun Reports no additional complaints Physical Exam Const General: cooperative, healthy appearing, comfortable, no acute distress, well developed, alert and awake Nutritional Appearance: overweight Orientation/consciousness: patient oriented x3 HEENT Head: Yes normal to inspection, Yes normocephalic and Yes atraumatic Ears: hearing grossly normal bilaterally Eyes General: appearance normal, both eyes and all related structures Neck Neck: Yes normal visual inspection and Yes trachea midline Chest Chest palpation & inspection: normal inspection of the chest Resp Effort & Inspection: normal respiratory effort and able to speak in complete sentences Cardio Rate: regular rate GI Inspection: Yes normal to inspection General: Yes no CVA tenderness Back/Spine/Pelvis Back: no CVA tenderness Skin General skin exam: no rashes or lesions noted Neuro General: patient oriented x3 Extrem General: Yes normal to inspection Psych Appearance: grossly normal and well kempt Mental Status: mental status grossly normal Speech and movement: Normal speech and movement present and Clear speech present Affect: normal affect Attitude: cooperative Thought process: Normal thought process present Thought content: Normal thought content present Insight: Fair insight present (Psych) Judgement: Fair judgement present (Psych) Office Procedures Post Void Residual Post Residual Void Post Void Residual (PVR): 27 [id number] Void Residual by ultrasound Results AMB Urinalysis, Automated UA Leukoctes 15 Edmund/uL Last Edit by [employer] on 09/20/23 10:04 UA Nitrite Last Edit by [employer] on 09/20/23 10:04 UA Urobilinogen 0.2 mg/dL Last Edit by [employer] on 09/20/23 10:04 UA Protein 0 mg/dL Last Edit by [employer] on 09/20/23 10:04 UA pH 6.5 Last Edit by [employer] on 09/20/23 10:04 UA Blood 0 Umer/uL Last Edit by [employer] on 09/20/23 10:04 UA Specific [place] 1.010 Last Edit by [employer] on 09/20/23 10:04 UA Ketone Negative Last Edit by [employer] on 09/20/23 10:04 UA Bilirubin 0 mg/dL Last Edit by [employer] on 09/20/23 10:04 UA Glucose 0 mg/dL Last Edit by [employer] on 09/20/23 10:04 Results Reviewed Results Reviewed: Laboratory Last Values Urine pH (Auto) 6.5 09/20/23 09:51 Specific [place] (Auto) 1.010 09/20/23 09:51 Urine Protein (Auto) 0 mg/dL 09/20/23 09:51 Glucose (UA)(Auto) 0 mg/dL 09/20/23 09:51 Urine Ketones (Auto) Negative 09/20/23 09:51 Urine Blood (Auto) 0 Umer/uL 09/20/23 09:51 Urine Bilirubin (Auto) 0 mg/dL 09/20/23 09:51 Urine Urobilinogen (Auto) 0.2 mg/dL 09/20/23 09:51 Leukocyte Esterase (Auto) 15 Edmund/uL 09/20/23 09:51 Assessment & Plan Assessment & Plan (1) Urgency incontinence: Code(s): N39.41 - Urge incontinence Category: Medical (2) Lower urinary tract symptoms: Code(s): R39.9 - Unspecified symptoms and signs involving the genitourinary system Category: Medical (3) Prolapse of female genital organs: Code(s): N81.9 - Female genital prolapse, unspecified Category: Medical Plan In office urinalysis results reviewed with the patient today; as noted above. PVR 27 mL. Continue Estrace cream and Gemtesa as prescribed. Patient reports be happy with current voiding parameters on current urological medications; will continue. Discussed importance of timed/scheduled voiding given decreased mobility to decrease episodes of urinary incontinence. Follow-up in 6 months with PVR; or sooner with any issues, concerns, and or questions. Orders: Orders AMB Urinalysis Automated Today Z13.9 - Encounter for screening, unspecified AMB Post Void Residual by ultrasound Today N39.41 - Urge incontinence Patient Instructions: The patient had an opportunity to ask questions regarding the treatment plan. All questions were answered. Physical exam, labs, and imaging were discussed and reviewed in detail. As well as risks, benefits, and discussion of treatment choices. No major barriers to understanding were identified. The patient expressed understanding and agreement with the above treatment plan. The patient was made aware they should contact our office by phone for worsening of their current condition, the appearance of new symptoms, or with any questions or concerns. Compliance is encouraged with any medications and follow up testing that is ordered. It is a privilege to be allowed the opportunity to participate in? your urological care.? Again, if you have any questions or concerns If you have any questions or concerns please do not hesitate to contact me. The office is [phone]. This note is constructed using voice recognition software. While every effort benites s been made to ensure accuracy scrap preparation supervisor errors may have been included. Yours sincerely, ISAURA Jiménez Coding Level of Care Code Est Pt Level 4 (84848) Diagnoses Urgency incontinence N39.41 Lower urinary tract symptoms R39.9 Prolapse of female genital organs N81.9 CPT Codes Post Residual Void - PVR CPT Code: 22653-[place] Void Residual by ultrasound ([id number]) Time Spent (min) 25
== END 2023-09-20 10:23 | disposition home or self-care (01) ==
PROVIDERS: PCP Family Medicine; Visit Provider Nurse Practitioner Family
DX: N39.41 Urge incontinence (principal); R39.9 Unspecified symptoms and signs involving the genitourinary system; N81.9 Female genital prolapse, unspecified; Z13.9 Encounter for screening, unspecified
CPT/HCPCS: 99214

== ENCOUNTER → 2023-09-20 09:34 | Outpatient (BNVA) | payer OTHER, SELFPAY | PROVIDERS: PCP Family Medicine; Visit Provider Nurse Practitioner Family | DX: N39.41 Urge incontinence (principal); N81.9 Female genital prolapse, unspecified; R39.9 Unspecified symptoms and signs involving the genitourinary system | CPT/HCPCS: 51798; 81003; 99212 ==

== ENCOUNTER 2024-03-07 18:06 | Outpatient (REF) | payer OTHER, SELFPAY | END 2024-03-07 18:07 | disposition home or self-care (01) | LOC: HO.HHCLNP 18:06 | PROVIDERS: Visit Provider Internal Medicine | DX: L03.115 Cellulitis of right lower limb (principal) | CPT/HCPCS: 87070; 87205 ==

== ENCOUNTER 2024-03-28 09:32 | Outpatient (REF) | payer OTHER, SELFPAY ==
--- NOTE | ~2024-03-28 | MM_ITS ---
EXAMINATION: MM SCREENING DIGITAL BREAST TOMOSYNTHESIS, BILATERAL CLINICAL INFORMATION: Screening. Asymptomatic. COMPARISON: Mammography: Comparison is made with available priors TECHNIQUE: Digital breast mammography with tomosynthesis is performed in both the craniocaudal and mediolateral oblique views along with computer-aided detection (CAD). FINDINGS: There are scattered areas of fibroglandular density (ACR BI-RADS breast composition Category b). There are no significant masses, abnormal calcifications, or other abnormalities. MM/MM tomosynthesis screening BI IMPRESSION: No mammographic evidence of malignancy. ASSESSMENT: BI-RADS BI-RADS 1 - Negative RECOMMENDATION: Routine annual mammography screening. 1 year F/U This examination should not preclude the clinical evaluation of a suspicious palpable abnormality. This patient's information was entered into a reminder system with a target due date for their next mammogram. Electronically signed by: Polly Connelly DO 04/06/2024 09:11 AM DWAYNE
== END 2024-03-28 09:33 | disposition home or self-care (01) ==
LOC: HO.MAMMO 09:32
PROVIDERS: PCP Family Medicine; Visit Provider Family Medicine
DX: Z12.31 Encounter for screening mammogram for malignant neoplasm of breast (principal)
CPT/HCPCS: 77063; 77067

== ENCOUNTER → 2024-03-28 09:45 | Outpatient (BNV) | payer OTHER, SELFPAY | PROVIDERS: PCP Family Medicine; Visit Provider Internal Medicine | DX: Z12.31 Encounter for screening mammogram for malignant neoplasm of breast (principal) | CPT/HCPCS: 77063; 77067 ==

== ENCOUNTER 2024-04-06 10:41 | Inpatient (IN) | payer OTHER, SELFPAY ==
--- NOTE | ~2024-04-06 | XR_ITS ---
EXAMINATION: XR TIBIA AND FIBULA, RIGHT CLINICAL INFORMATION: cellulitis, ? osteo COMPARISON: Right ankle 04/03/2021 TECHNIQUE: 3 views of of the right tibia and fibula were obtained. FINDINGS: There appears to be diffuse soft tissue swelling of the tibia and fibula, with reticulations in the tissues suggesting edema. No evidence of acute fracture of the tibia-fibula. No erosive or destructive changes identified. No air is seen in the soft tissue. No unexpected radiopaque foreign bodies. XR/XR tibia fibula RT 2V IMPRESSION: Diffuse soft tissue swelling of the visualized lower extremity, with findings suggesting edema. No radiographic evidence of erosive or destructive changes suggest definite osteomyelitis. Electronically signed by: Abdias Sepulveda MD 04/06/2024 05:11 PM DWAYNE LOZANO
--- NOTE | ~2024-04-06 | US_ITS ---
EXAMINATION: US TRIPLEX LOWER EXTREMITY, RIGHT CLINICAL INFORMATION: Swelling, erythema COMPARISON: None available. TECHNIQUE: Color-flow triplex imaging with spectral analysis and compression Doppler were performed on the right lower extremity. FINDINGS: Respiratory variation, normal compression and augmented flow are noted throughout the right lower extremity. The visualized common femoral vein, superficial femoral vein, profunda femoral vein, popliteal vein show no evidence of deep venous thrombosis. The calf veins are not well visualized. There is no Castro's cyst. US/US venous duplex LE RT IMPRESSION: No evidence of deep venous thrombosis involving the right lower extremity extending from the common femoral vein to the popliteal vein. The calf veins are not well visualized or evaluated. If the patient's symptoms persist, consider short-term follow-up ultrasound to exclude proximal propagation from a non-visualized calf vein. Electronically signed by: Abdias Sepulveda MD 04/06/2024 05:07 PM [facility]
[2024-04-06 10:46] VITALS: BP 159/70; PULSE 92; RESP 18; TEMP 36.7; O2SAT 96; BMI 33.1
[2024-04-06 11:32] LABS: MANUAL DIFF FLAG NO
[2024-04-06 11:36] LABS: Basophils Percent Auto 0.2 % (0-2); Eosinophils Percent Auto 0.2 % (0-4); Hematocrit 40.9 % (37.0-47.0); Hemoglobin 13.2 g/dl (12.0-16.0); Imm Gran Abs Auto 0.04 X10*3/uL (0.00-0.03); Imm Gran Pct Auto 0.4 % (0.0-0.4); Lymphocytes Absolute Auto 1.4 X10*3/uL (1.2-4.9); Lymphocytes Percent Auto 13.3 % (20-40); Mean Corpuscular HGB Conc 32.3 g/dl (31.0-35.0); Mean Corpuscular Hemoglobin 27.6 pg (27.0-33.0); Mean Corpuscular Volume 85.6 fL (80.0-98.0); Monocytes Absolute Auto 0.9 X10*3/uL (0.1-1.2); Monocytes Percent Auto 9.1 % (2-11); Neutrophils Absolute Auto 7.9 x10*3/uL (2.0-8.3); Neutrophils Percent Auto 76.8 % (45-73); Platelet Count 284 X10*3/uL (160-400); Red Blood Count 4.78 X10*6/uL (4.20-5.50); Red Cell Distribution Width 15.7 % (11.0-16.0); White Blood Count 10.2 X10*3/uL (4.8-10.8)
[2024-04-06 11:51] LABS: Alanine Aminotransferase 21 U/L (0-31); Albumin Level 3.9 g/dL (3.5-5.0); Alkaline Phosphatase 108 U/L (39-117); Anion Gap 14 (12-20); Aspartate Amino Transferase 28 U/L (5-31); Bilirubin Total 0.5 mg/dL (0.0-1.0); Blood Urea Nitrogen 16 mg/dL (9-16); Calcium 9.4 mg/dL (8.4-10.2); Carbon Dioxide 24 mmol/L (22-29); Chloride 108 mmol/L (96-108); Creatinine Clr Calc Pharmacy 67.5; Estimated Glomerular Filt Rate > 60; Glucose Random 106 mg/dL (60-115); Potassium 3.7 mmol/L (3.3-5.1); Sodium 142 mmol/L (135-145); Total Protein 7.7 g/dL (6.5-8.0)
[2024-04-06 11:53] LABS: B Type Natriuretic Peptide 59 pg/mL (<100)
--- NOTE | 2024-04-06 15:18 | ED_ITS ---
HPI - General Adult General Chief complaint: Skin/Abscess/Foreign Body Stated complaint: Cellulitis R leg antibiotics not helping Time Seen by Provider: 04/06/24 15:07 Source: patient and sign language interpreter Mode of arrival: ambulatory Limitations: language barrier History of Present Illness ED Provider: Ashish HPI narrative: Patient is a 73-year-old female presenting to the emergency department with complaint of worsening right lower extremity cellulitis. In March she was treated with a 7 day course of Bactrim. On her symptoms had not improved so she called the community cut plug packer who came to her house, evaluated her, and started her on doxycycline. She will finish this course on Tuesday. She reports that her wound is weeping serous/purulent drainage. Denies fevers, chills, body aches. MD complaint: cellulitis Onset (ago): week(s) Location: right and lower extremity Associated symptoms: denies other symptoms Treatments prior to arrival: other Related Data Home Medications ?Medication ?Instructions ?Recorded ?Confirmed acetaminophen 500 mg tablet 0 mg PO 09/05/20 03/24/22 allopurinol 100 mg tablet 100 mg PO DAILY 09/05/20 03/24/22 amlodipine 10 mg tablet 10 mg PO DAILY 09/05/20 03/24/22 aspirin 81 mg tablet,delayed 81 mg PO QAM 09/05/20 03/24/22 release cholecalciferol (vitamin D3) 25 25 mcg PO DAILY 09/05/20 03/24/22 mcg (1,000 unit) tablet isosorbide mononitrate 60 mg 60 mg PO DAILY 09/05/20 03/24/22 tablet,extended release 24 hr metoprolol succinate 25 mg 25 mg PO DAILY 09/05/20 03/24/22 tablet,extended release 24 hr omega-3 fatty acids-fish oil 340 1 cap PO QAM 09/05/20 03/24/22 mg-1,000 mg capsule rosuvastatin 5 mg tablet 5 mg PO BEDTIME 09/05/20 03/24/22 sertraline 25 mg tablet 25 mg PO DAILY 09/05/20 03/24/22 sertraline 50 mg tablet 50 mg PO DAILY 09/05/20 03/24/22 vibegron 75 mg tablet (Gemtesa) 0 mg PO 09/16/22 d-mannose 500 mg capsule mg PO 09/24/22 estradiol 0.01% (0.1 mg/gram) 1 appful vaginal DAILY 09/24/22 vaginal cream fluocinolone 0.025 % topical 1 appl topical BID 09/24/22 ointment vit C 250 mg-vit E 200 unit-zinc cap PO 09/24/22 ox 12.5 [id number] capsule (ICaps AREDS2) Previous Rx's ?Medication ?Instructions ?Recorded ciprofloxacin HCl 250 mg tablet 250 mg PO BID 14 days #28 tabs 09/05/20 Allergies Allergy/AdvReac Type Severity Reaction Status Date / Time progesterone [Progesterone] Allergy Mild SWELLING, Verified 04/06/24 10:48 itching and swelling, body edema quinapril [Accupril] Allergy Unknown Unknown Verified 04/06/24 10:48 Review of Systems 2 Review of Systems: As per HPI Yes all other systems are reviewed and are negative Constitutional: Constitutional: Reports as per HPI [facility] Past Medical History Medical History Impaired fasting glucose Venous insufficiency Benign essential hypertension Chest discomfort Coronary artery disease involving [place] coronary artery of [place] heart with angina pectoris Angina pectoris Urgency incontinence Surgical History History of surgery Social History Social History Alcohol intake: never Patient Tobacco Use Status: Never used Tobacco Smoked in Last 30 Days: No Use of substances other than those prescribed or required for medical reasons: No Advance Directives: No Advance Directives Information Provided: Yes Physical Exam ED Vital Signs: Vital Signs - 24 hr 04/06/24 10:46 04/06/24 15:22 04/06/24 16:21 Temperature 98.1 F 97.5 F 98.3 F Pulse Rate 92 76 74 Respiratory Rate 18 20 16 Blood Pressure 159/70 H 154/76 H 135/75 Pulse Oximetry 96 94 92 Oxygen Delivery Method Room Air Room Air Room Air BMI result Body Mass Index 33.1 Vital signs have been reviewed and appear to be correct. Blood pressure elevated. Heart rate normal. Respiratory rate normal. Temperature normal. Oxygen saturation normal. Const General: cooperative, healthy appearing and no acute distress Orientation/consciousness: oriented to person, oriented to place, oriented to time and patient oriented x3 Limitations: no limitations HENMT Head: Yes normocephalic and Yes atraumatic Ears: external ears normal General nose exam: Normal external nose present Face and sinus: Yes face symmetric Mouth: oropharynx normal and moist mucous membranes Throat: Yes uvula midline Eyes Pupils: Equal, round and reactive pupils present Neck Neck: Yes normal visual inspection and Yes supple Resp Effort & Inspection: normal respiratory effort and able to speak in complete sentences Auscultation: clear to auscultation bilaterally Cardio Rate: regular rate Rhythm: regular rhythm Heart sounds: S1 normal heart sound present and S2 normal heart sound present GI Palpation (GI): Soft to palpation and nontender Auscultation: normoactive bowel sounds General: Yes no CVA tenderness Back/Spine/Pelvis Back: no CVA tenderness Skin General skin exam: elasticity normal and turgor normal Neuro General: oriented to person, oriented to place, oriented to time, patient oriented x3, moves all extremities, no focal motor deficits and CN's II-XI intact bilaterally Cranial nerves: Yes Equal, round and reactive pupils present Cognition (Neuro): normal cognition Extrem Other: General: Yes full ROM, Yes no pedal edema and Yes no calf tenderness Right lower extremity: lower leg Details: erythema Location: of the distal lower leg, tenderness Location: of the distal tibia, localized swelling Location: of the distal lower leg, warmth Location: of the distal lower leg and other (wound draining serous fluid, see photos) and foot Details: vascular exam Details: dorsalis pedis pulse present, posterior tibial pulse present and normal capillary refill Psych Mental Status: mental status grossly normal Affect: normal affect Thought process: Normal thought process present Course Reevaluation(s) Reevaluation #1: I reviewed the patient's workup including labs, x-ray and ultrasound. The x-ray shows no evidence of asked this but the patient does have extensive soft tissue inflammation likely related to the cellulitis. Ultrasound shows no evidence of DVT. Plan to discuss with the hospitalist for admission due to failed outpatient antibiotics Time: 17:28 Medical Decision Making Medical Decision Making MDM Narrative: Patient is a 73-year-old female presenting to the emergency department with complaint of worsening right lower extremity cellulitis. On exam patient is awake, A+Ox3, VS WNL, afebrile, normal neurological exam without focal deficits, physical exam findings as above. Given reported symptoms and physical exam findings, initial differential includes cellulitis resistant to outpatient antibiotics, DVT. Less likely osteomyelitis. Labs notable for no leukocytosis. Wound culture from 03/07 positive for coag negative staph. Plan: add on ESR/CRP, x-ray, ultrasound Patient signed out to GAUTAM Bennett pending imaging. Given failure of outpatient antibiotics, likely admission. Differential Diagnosis Differential Diagnoses: The differential diagnosis associated with the presentation includes As per [facility] Admission/Observation Consideration of admission/observation: Escalation of care including admission/observation considered Lab Data [facility] Lab Attestation statement: I reviewed the patient's lab results. As per [facility] 04/06/24 11:20 04/06/24 11:16 Labs: Lab Results 04/06/24 04/06/24 Range/Units 11:16 11:20 WBC 10.2 (4.8-10.8) X10*3/uL RBC 4.78 (4.20-5.50) X10*6/uL Hgb 13.2 (12.0-16.0) g/dl Hct 40.9 (37.0-47.0) % MCV 85.6 (80.0-98.0) fL MCH 27.6 (27.0-33.0) pg MCHC 32.3 (31.0-35.0) g/dl RDW 15.7 (11.0-16.0) % Plt Count 284 (160-400) X10*3/uL MPV 10.0 (9.4-12.3) fL Immature Gran % (Auto) 0.4 (0.0-0.4) % Neut % (Auto) 76.8 H (45-73) % Lymph % (Auto) 13.3 L (20-40) % [place] % (Auto) 9.1 (2-11) % Eos % (Auto) 0.2 (0-4) % Baso % (Auto) 0.2 (0-2) % Lymph # (Auto) 1.4 (1.2-4.9) X10*3/uL [place] # (Auto) 0.9 (0.1-1.2) X10*3/uL Eos # (Auto) 0.0 (0.0-0.4) X10*3/uL Baso # (Auto) 0.0 (0.0-0.2) X10*3/uL Abs Immat Gran (auto) 0.04 H (0.00-0.03) X10*3/uL Absolute Neuts (auto) 7.9 (2.0-8.3) x10*3/uL Absolute Nucleated RBC 0.000 (0.0-0.012) X10*3/uL Nucleated RBC % (auto) 0.0 (0.0-0.2) /100WBC ESR 29 H (0-20) MM/HR Sodium 142 (135-145) mmol/L Potassium 3.7 (3.3-5.1) mmol/L Chloride 108 (96-108) mmol/L Carbon Dioxide 24 (22-29) mmol/L Anion Gap 14 (12-20) BUN 16 (9-16) mg/dL Creatinine 0.69 (0.5-1.4) mg/dL Estim Creat Clear Calc 67.5 Estimated GFR > 60 Random Glucose 106 (60-115) mg/dL Calcium 9.4 (8.4-10.2) mg/dL Total Bilirubin 0.5 (0.0-1.0) mg/dL AST 28 (5-31) U/L ALT 21 (0-31) U/L Alkaline Phosphatase 108 (39-117) U/L C-Reactive Protein 4.20 H (< or = 0.50) mg/dL B-Natriuretic Peptide 59 (<100) pg/mL Total Protein 7.7 (6.5-8.0) g/dL Albumin 3.9 (3.5-5.0) g/dL External Record Review External record reviewed: Inpatient record, Office record and Outpatient record Discharge Plan Discharge Clinical Impression: Cellulitis of right lower leg Patient Disposition: Still a Patient Prescriptions: No Action cholecalciferol (vitamin D3) 25 mcg (1,000 unit) tablet 25 mcg PO DAILY sertraline 50 mg tablet 50 mg PO DAILY sertraline 25 mg tablet 25 mg PO DAILY amlodipine 10 mg tablet 10 mg PO DAILY acetaminophen 500 mg tablet 0 mg PO allopurinol 100 mg tablet 100 mg PO DAILY rosuvastatin 5 mg tablet 5 mg PO BEDTIME metoprolol succinate 25 mg tablet extended release 24 hr 25 mg PO DAILY isosorbide mononitrate 60 mg tablet extended release 24 hr 60 mg PO DAILY aspirin 81 mg tablet,delayed release (DR/EC) 81 mg PO QAM Fish Oil 340-1,000 mg capsule 1 cap PO QAM ciprofloxacin HCl 250 mg tablet 250 mg PO BID 14 Days Qty: 28 0RF d-mannose 500 mg capsule PO estradiol 0.01 % (0.1 mg/gram) cream 1 appful vaginal DAILY Rx Instructions: for 14 days fluocinolone 0.025 % ointment 1 appl topical BID ICaps AREDS2 250 mg-200 unit -12.5 mg-1 mg capsule PO Gemtesa 75 mg tablet 0 mg PO Print Language: Czech
[2024-04-06 15:22] VITALS: BP 154/76; PULSE 76; RESP 20; TEMP 36.4; O2SAT 94
[2024-04-06 16:17] LABS: Erythrocyte Sedimentation Rate 29 MM/HR (0-20)
[2024-04-06 16:21] VITALS: BP 135/75; PULSE 74; RESP 16; TEMP 36.8; O2SAT 92
[2024-04-06 17:56] LABS: Lactic Acid 1.6 mmol/L (0.5-2.0)
[2024-04-06 17:57] VITALS: BP 169/73; PULSE 81; RESP 20; TEMP 37.2; O2SAT 94
[2024-04-06] MEDS: cefTRIAXone sodium 1 GM VIAL IVPUSH (18:00)
[2024-04-06] MEDS: vancomycin HCL 1,500 MG in 0.9 % Sodium Chloride 500 ML 333.33 MG IV (18:00)
--- NOTE | 2024-04-06 18:31 | PM.IMHP ---
History of Present Illness Date of Service: 04/06/24 Attending physician on admission: [facility] Chief Complaint: Worsening right lower leg cellulitis Pt is a 73-year-old female with a PMH significant for?HTN, HLD, CAD, venous insufficiency of right leg with chronic edema, gout, and mood disorder who presents to the ED for evaluation of right lower extremity cellulitis not responsive to outpatient therapies. Patient reports was initially diagnosed with right lower leg cellulitis on 03/07/2024 at urgent care and was prescribed a course of Bactrim x14 days. Patient finished antibiotics without improvement so she called a community driver license reviewing officer who came to the house on and started her on doxycycline x10 days which she has been taking since 03/30/2024. She is set to finish this course of antibiotics in 2 days on Tuesday. Patient's symptoms have not improved on either antibiotics. Patient reports right leg swelling chronic and around baseline, but redness, open sores, and weeping of clear yellowish discharge has worsened. Denies fever or chills. No significant pain. Denies numbness or tingling in her feet. Patient reports she follows with vascular surgery and last saw in March. Went to wound care 1 year ago for evaluation but was apparently told she did not need treatment at that time. Denies chest pain/pressure, palpitations. No nausea, vomiting, abdominal pain. Denies shortness or breath or difficulty breathing. In the ED pt was hypertensive up to 169/73, vitals otherwise Labs were significant for ESR of 29 and CRP 4.20, otherwise grossly unremarkable and baseline for patient. No leukocytosis. Stable H&H. No significant electrolyte abnormalities. Renal and hepatic function WNL. BNP WNL at 59. Lactic acid WNL at 1.6. Right tibia and fibula x-ray showed diffuse soft tissue swelling with findings suggestive of edema, but no evidence of osteomyelitis. Right lower leg duplex with no evidence of DVT, the calf veins were not well visualized or evaluated. Pt was treated with vancomycin and ceftriaxone. Pt will be admitted to the hospital for treatment and further evaluation of right lower leg cellulitis that has failed outpatient therapy. Review of Systems Review of Systems: Negative except for that which is stated in the [facility] Medical History Impaired fasting glucose Venous insufficiency Benign essential hypertension Chest discomfort Coronary artery disease involving [place] coronary artery of [place] heart with angina pectoris Angina pectoris Urgency incontinence Surgical History History of surgery Social History Alcohol intake: never Patient Tobacco Use Status: Never used Tobacco Smoked in Last 30 Days: No Use of substances other than those prescribed or required for medical reasons: No Advance Directives: No Advance Directives Information Provided: Yes Meds Allergies Allergy/AdvReac Type Severity Reaction Status Date / Time progesterone [Progesterone] Allergy Mild SWELLING, Verified 04/06/24 10:48 itching and swelling, body edema quinapril [Accupril] Allergy Unknown Unknown Verified 04/06/24 10:48 Active Medications: Current Medications Vancomycin HCl 1,500 mg/ (Sodium Chloride) 500 mls @ 333.333 mls/hr IV ONCE ONE Stop: 04/06/24 18:44 Last Admin: 04/06/24 18:00 Dose: 333.33 mls/hr Home Medications ?Medication ?Instructions ?Recorded ?Confirmed ?Last Taken ?Type acetaminophen 500 mg tablet 500 - 1,000 mg PO Q8H PRN Fever Or 09/05/20 04/06/24 Unknown History Pain allopurinol 100 mg tablet 100 mg PO DAILY 09/05/20 04/06/24 04/06/24 History amlodipine 10 mg tablet 10 mg PO DAILY 09/05/20 04/06/24 04/06/24 History aspirin 81 mg tablet,delayed 81 mg PO DAILY 09/05/20 04/06/24 04/06/24 History release cholecalciferol (vitamin D3) 25 25 mcg PO DAILY 09/05/20 04/06/24 04/06/24 History mcg (1,000 unit) tablet isosorbide mononitrate 60 mg 60 mg PO DAILY 09/05/20 04/06/24 04/06/24 History tablet,extended release 24 hr metoprolol succinate 25 mg 25 mg PO DAILY 09/05/20 04/06/24 04/06/24 History tablet,extended release 24 hr omega-3 fatty acids-fish oil 340 1 cap PO DAILY 09/05/20 04/06/24 04/06/24 History mg-1,000 mg capsule rosuvastatin 5 mg tablet 5 mg PO BEDTIME 09/05/20 04/06/24 04/05/24 History sertraline 25 mg tablet 25 mg PO DAILY 09/05/20 04/06/24 04/06/24 History sertraline 50 mg tablet 50 mg PO DAILY 09/05/20 04/06/24 04/06/24 History fluocinolone 0.025 % topical 1 appl topical BID 09/24/22 04/06/24 04/06/24 History ointment bacitracin 500 unit/gram topical 1 appl topical BID 04/06/24 04/06/24 04/06/24 History ointment bumetanide 0.5 mg tablet 0.5 mg PO DAILY 04/06/24 04/06/24 04/06/24 History diclofenac sodium 1 % topical gel 2 g topical BID PRN pain 04/06/24 04/06/24 Unknown History doxycycline hyclate 100 mg capsule 100 mg PO BID 04/06/24 04/06/24 04/06/24 History vibegron 75 mg tablet (Gemtesa) 75 mg PO DAILY 04/06/24 04/06/24 04/06/24 History Physical Exam Vital Signs and Narrative: Vital Signs: Last Vital Signs Temp 99 F 04/06/24 17:57 Pulse 81 04/06/24 17:57 Resp 20 04/06/24 17:57 BP 169/73 H 04/06/24 17:57 Pulse Ox 94 04/06/24 17:57 O2 Del Method Room Air 04/06/24 17:57 BMI result Body Mass Index 33.1 General: AOx3, no acute distress Resp: CTA bilaterally CVS: S1, S2, RRR GI: +BS, NT, no distention Skin: Warm, dry Neuro: Cranial nerves II-XII grossly intact bilaterally. Motor grossly intact bilaterally Extremities: 3+ right lower leg edema. Erythema, warmth, and areas of open skin overlying chronic venous stasis dermatitis as pictured below. Area noted to be draining clear yellowish discharge Psych: Appropriate affect Results Labs 04/06/24 11:20 04/06/24 11:16 Labs: Laboratory Results - last 24 hr 04/06/24 04/06/24 04/06/24 11:16 11:20 17:34 MCV 85.6 MCH 27.6 MCHC 32.3 RDW 15.7 Plt Count 284 MPV 10.0 Immature Gran % (Auto) 0.4 Neut % (Auto) 76.8 H Lymph % (Auto) 13.3 L [place] % (Auto) 9.1 Eos % (Auto) 0.2 Baso % (Auto) 0.2 Lymph # (Auto) 1.4 [place] # (Auto) 0.9 Eos # (Auto) 0.0 Baso # (Auto) 0.0 Abs Immat Gran (auto) 0.04 H Absolute Neuts (auto) 7.9 Absolute Nucleated RBC 0.000 Nucleated RBC % (auto) 0.0 ESR 29 H Anion Gap 14 Estim Creat Clear Calc 67.5 Estimated GFR > 60 Random Glucose 106 Lactic Acid 1.6 Calcium 9.4 Total Bilirubin 0.5 AST 28 ALT 21 Alkaline Phosphatase 108 C-Reactive Protein 4.20 H B-Natriuretic Peptide 59 Total Protein 7.7 Albumin 3.9 Imaging Radiologist's Impressions: Impressions Tibia/Fibula X-Ray 04/06/24 15:26 IMPRESSION: Diffuse soft tissue swelling of the visualized lower extremity, with findings suggesting edema. No radiographic evidence of erosive or destructive changes suggest definite osteomyelitis. Electronically signed by: Abdias Sepulveda MD 04/06/2024 05:11 PM Instilling Values RP Venous Duplex 04/06/24 16:07 IMPRESSION: No evidence of deep venous thrombosis involving the right lower extremity extending from the common femoral vein to the popliteal vein. The calf veins are not well visualized or evaluated. If the patient's symptoms persist, consider short-term follow-up ultrasound to exclude proximal propagation from a non-visualized calf vein. Electronically signed by: Abdias Sepulveda MD 04/06/2024 05:07 PM EST RP Assessment and Plan (1) Cellulitis of right lower leg: Status: Acute Plan Pt is a 73-year-old female with a PMH significant for?HTN, HLD, CAD, venous insufficiency of right leg with chronic edema, gout, and mood disorder who presents to the ED for evaluation of right lower extremity cellulitis not responsive to outpatient therapies. Pt will be admitted to the hospital for treatment and further evaluation of right lower leg cellulitis that has failed outpatient therapy. Right lower leg cellulitis Initially diagnosed on 03/07, no improvement on Bactrim x14 days and doxy x10 days No sepsis: HR of 92, but no fever, tachypnea, or leukocytosis; lactic acid WNL Patient is started on broad-spectrum antibiotics in the ED Will treat with vancomycin and ceftriaxone, started 04/06/2024 Wound care consult HTN Continue amlodipine and metoprolol CAD/HLD Continue isosorbide mononitrate, statin, and aspirin Chronic right lower leg edema Continue bumetanide Gout Continue allopurinol Mood disorder Continue sertraline Full Code Attending:?Dr. Brian DVT Prophylaxis: Lovenox Pt will require a hospitalization of at least two nights for treatment of?right lower leg cellulitis that failed outpatient therapy that will require administration of IV antibiotics. Quality Stroke Does the patient have a stroke diagnosis?: No VTE Prior VTE?: No VTE Risk Level:: Medical - moderate - high VTE Device Contraindication: Treatment Not Indicated VTE Drug Contraindication: N/A - Med Ordered
[2024-04-06] MEDS: Enoxaparin Sodium 40 MG/0.4 ML SYRINGE SUBCUT (19:50)
[2024-04-06 20:13] VITALS: BP 160/78; PULSE 76; RESP 16; TEMP 36.8; O2SAT 94
--- NOTE | 2024-04-06 20:32 | PC.NURSE ---
Ambuated to bathroom with assist of one and walker. Returned to bed with minimal assistance.
--- NOTE | 2024-04-06 20:43 | PHA.MEDREC ---
Addendum entered by Ernie Reinoso RPh 04/06/24 21:11: MED REC CHECKED BY [facility] Original Note: Pharmacy Consult ? Medication Reconciliation Pharmacy has completed the medication reconciliation. Spoke to patient through snack bar cashier service ( [employer]) to confirm med list. Patient had a list of medications with her. Utilized claims and list to confirm med rec. Patient last took her medications today in the morning.
[2024-04-06 21:53] VITALS: BMI 32.6
[2024-04-06 22:04] VITALS: BP 142/66; PULSE 78; RESP 16; TEMP 37.1; O2SAT 93
[2024-04-06] MEDS: Melatonin 3 MG TABLET 6 MG PO (22:21)
[2024-04-06] MEDS: Acetaminophen 325 MG TABLET 650 MG PO (22:21)
[2024-04-06] MEDS: 0.9 % Sodium Chloride Flush 3 ML SYRINGE IVFLUSH (22:24)
[2024-04-07 02:58] VITALS: BP 111/54; PULSE 69; RESP 16; TEMP 36.9; O2SAT 93
[2024-04-07] MEDS: vancomycin HCL 750 MG in 0.9 % Sodium Chloride 250 ML 265 MG IV ×2 (05:33→17:47)
[2024-04-07 08:00] VITALS: BP 141/70; PULSE 76; RESP 16; TEMP 36.7; O2SAT 94
[2024-04-07 08:53] LABS: Estimated Glomerular Filt Rate > 60
[2024-04-07] MEDS: Isosorbide Mononitrate 60 MG TAB.ER.24H PO (09:27)
--- NOTE | 2024-04-07 09:27 | P.PNIM_ITS ---
Subjective Subjective Date of Service: 04/07/24 Interval History: f/u on cellulitis of the right lower leg looks better Physical Exam 2 Vital Signs: Vital Signs: Last Vital Signs Temp 98.0 F 04/07/24 08:00 Pulse 76 04/07/24 08:00 Resp 16 04/07/24 08:00 BP 141/70 H 04/07/24 08:00 Pulse Ox 94 04/07/24 08:00 O2 Del Method Room Air 04/07/24 08:00 BMI result Body Mass Index 32.6 Objective Data Active Medications Acetaminophen (Acetaminophen 325 Mg Tablet) 650 mg PO Q6H PRN PRN Reason: Pain, Mild (Pain Scale 1-3), fever or headache Last Admin: 04/06/24 22:21 Dose: 650 mg Documented By: DAYO Allopurinol (Allopurinol 100 Mg Tablet) 100 mg PO DAILY [facility] Amlodipine Besylate (Amlodipine Besylate 10 Mg Tablet) 10 mg PO DAILY [facility]; Protocol Aspirin (Aspirin Enteric Coated 81 Mg Tablet.Dr) 81 mg PO DAILY [facility] Atorvastatin Calcium (Atorvastatin Calcium 20 Mg Tablet) 20 mg PO BEDTIME [facility] Bumetanide (Bumetanide 1 Mg Tablet) 0.5 mg PO DAILY [facility]; Protocol Calcium Carbonate (Calcium Carbonate 750 Mg Tab.Chew) 750 mg PO Q4H PRN PRN Reason: Heartburn Ceftriaxone Sodium (Ceftriaxone Sodium 1 Gm Vial) 1 gm IVPUSH Q24H [facility] Enoxaparin Sodium (Enoxaparin Sodium 40 Mg/0.4 Ml Syringe) 40 mg SUBCUT Q24H [facility] Last Admin: 04/06/24 19:50 Dose: 40 mg Documented By: OSWALD Vancomycin HCl 750 mg/ Sodium (Chloride) 265 mls @ 265 mls/hr IV Q12H [facility] Last Infusion: 04/07/24 06:35 Dose: Infused Documented By: DAYO Isosorbide Mononitrate (Isosorbide Mononitrate 60 Mg Tab.Er.24h) 60 mg PO DAILY [facility]; Protocol Magnesium Hydroxide (Milk Of Magnesia 30 Ml Oral.Susp) 30 ml PO DAILY PRN PRN Reason: Constipation Melatonin (Melatonin 3 Mg Tablet) 6 mg PO BEDTIME PRN PRN Reason: Insomnia Last Admin: 04/06/24 22:21 Dose: 6 mg Documented By: DAYO Metoprolol Succinate (Metoprolol Succinate Er 25 Mg Tab.Er.24h) 25 mg PO DAILY [facility]; Protocol Pharmacy Consult (Consult Rx Vancomycin Dosing) 1 each MISCELLANE DAILY PRN PRN Reason: Consult order Sertraline HCl (Sertraline Hcl 25 Mg Tablet) 25 mg PO DAILY [facility] Sertraline HCl (Sertraline Hcl 50 Mg Tablet) 50 mg PO DAILY [facility] Sodium Chloride (0.9 % Sodium Chloride Flush 3 Ml Syringe) 3 ml IVFLUSH QSHIFT [facility] Last Admin: 04/06/24 22:24 Dose: 3 ml Documented By: DAYO Vitamin D (Cholecalciferol (Vitamin D3) 25 Mcg Tablet) 25 mcg PO DAILY [facility] Labs 04/06/24 11:20 04/07/24 08:32 Labs: Laboratory Results - last 24 hr 04/06/24 04/06/24 04/06/24 11:16 11:20 17:34 MCV 85.6 MCH 27.6 MCHC 32.3 RDW 15.7 Plt Count 284 MPV 10.0 Immature Gran % (Auto) 0.4 Neut % (Auto) 76.8 H Lymph % (Auto) 13.3 L Patrick % (Auto) 9.1 Eos % (Auto) 0.2 Baso % (Auto) 0.2 Lymph # (Auto) 1.4 Patrick # (Auto) 0.9 Eos # (Auto) 0.0 Baso # (Auto) 0.0 Abs Immat Gran (auto) 0.04 H Absolute Neuts (auto) 7.9 Absolute Nucleated RBC 0.000 Nucleated RBC % (auto) 0.0 ESR 29 H Anion Gap 14 Estim Creat Clear Calc 67.5 Estimated GFR > 60 Random Glucose 106 Lactic Acid 1.6 Calcium 9.4 Total Bilirubin 0.5 AST 28 ALT 21 Alkaline Phosphatase 108 C-Reactive Protein 4.20 H B-Natriuretic Peptide 59 Total Protein 7.7 Albumin 3.9 04/07/24 08:32 MCV MCH MCHC RDW Plt Count MPV Immature Gran % (Auto) Neut % (Auto) Lymph % (Auto) Patrick % (Auto) Eos % (Auto) Baso % (Auto) Lymph # (Auto) Patrick # (Auto) Eos # (Auto) Baso # (Auto) Abs Immat Gran (auto) Absolute Neuts (auto) Absolute Nucleated RBC Nucleated RBC % (auto) ESR Anion Gap Estim Creat Clear Calc 70.0 Estimated GFR > 60 Random Glucose Lactic Acid Calcium Total Bilirubin AST ALT Alkaline Phosphatase C-Reactive Protein B-Natriuretic Peptide Total Protein Albumin Assessment and Plan (1) Cellulitis of right lower leg: Status: Acute Plan Pt is a 73-year-old female with a PMH significant for?HTN, HLD, CAD, venous insufficiency of right leg with chronic edema, gout, and mood disorder who presents to the ED for evaluation of right lower extremity cellulitis not responsive to outpatient therapies. Pt will be admitted to the hospital for treatment and further evaluation of right lower leg cellulitis that has failed outpatient therapy. Right lower leg cellulitis Initially diagnosed on 03/07, no improvement on Bactrim x14 days and doxy x10 days. No sepsis: Patient is started on broad-spectrum antibiotics in the ED Continue vancomycin and ceftriaxone, started 04/06/2024 Wound care consult HTN Continue amlodipine and metoprolol CAD/HLD Continue isosorbide mononitrate, statin, and aspirin Chronic right lower leg edema Continue bumetanide Gout Continue allopurinol Mood disorder Continue sertraline Full Code DVT Prophylaxis: Lovenox Pt will require a hospitalization of at least two nights for treatment of?right lower leg cellulitis that failed outpatient therapy that will require administration of IV antibiotics. Quality Stroke Does the patient have a stroke diagnosis?: No VTE Prior VTE?: No VTE Risk Level:: Medical - moderate - high VTE Device Contraindication: Treatment Not Indicated VTE Drug Contraindication: N/A - Med Ordered
[2024-04-07] MEDS: amLODIPine Besylate 10 MG TABLET PO (09:28)
[2024-04-07] MEDS: allopurinoL 100 MG TABLET PO (09:28)
[2024-04-07] MEDS: Bumetanide 1 MG TABLET 0.5 MG PO (09:28)
[2024-04-07] MEDS: 0.9 % Sodium Chloride Flush 3 ML SYRINGE IVFLUSH ×2 (09:29→21:06)
[2024-04-07] MEDS: Aspirin Enteric Coated 81 MG TABLET.DR PO (09:29)
[2024-04-07] MEDS: Metoprolol Succinate ER 25 MG TAB.ER.24H PO (09:29)
[2024-04-07] MEDS: Sertraline HCL 25 MG TABLET PO (09:29)
[2024-04-07] MEDS: Cholecalciferol (Vitamin D3) 25 MCG TABLET PO (09:29)
[2024-04-07] MEDS: Sertraline HCL 50 MG TABLET PO (09:29)
[2024-04-07] MEDS: Acetaminophen 325 MG TABLET 650 MG PO (09:38)
--- NOTE | 2024-04-07 12:14 | MHC.CM.PN ---
PT LIVES WITH HAS A BENEFITS COORDINATOR 2X WEEKLY AND HAS OWN RIDE HOME
[2024-04-07 15:25] VITALS: BP 127/71; PULSE 81; RESP 18; TEMP 36.6; O2SAT 93
[2024-04-07 16:35] LABS: Vancomycin Random 11.4 mcg/mL (15-20)
--- NOTE | 2024-04-07 16:42 | HE.PHANOTE ---
Re: Vanco Renal function improving. Trough returned at 11.4. Pt is therapeutic. Continue dose of 750mg q12h with predicted AUC 410, predicted trough 13.1. Next trough 04/09 @ 1600.
[2024-04-07] MEDS: cefTRIAXone sodium 1 GM VIAL IVPUSH (17:47)
[2024-04-07 20:00] VITALS: BP 128/61; PULSE 82; RESP 16; TEMP 36.6; O2SAT 95
[2024-04-07] MEDS: Enoxaparin Sodium 40 MG/0.4 ML SYRINGE SUBCUT (21:05)
[2024-04-07] MEDS: Atorvastatin Calcium 20 MG TABLET PO (21:05)
[2024-04-08 03:32] VITALS: BP 127/63; PULSE 82; RESP 16; TEMP 36.2; O2SAT 93
[2024-04-08] MEDS: vancomycin HCL 750 MG in 0.9 % Sodium Chloride 250 ML 265 MG IV ×2 (05:09→17:42)
[2024-04-08 07:32] LABS: Anion Gap 13 (12-20); Carbon Dioxide 21 mmol/L (22-29); Chloride 111 mmol/L (96-108); Creatinine Clr Calc Pharmacy 68.9; Estimated Glomerular Filt Rate > 60; Potassium 3.3 mmol/L (3.3-5.1); Sodium 142 mmol/L (135-145)
[2024-04-08 08:00] VITALS: BP 133/63; PULSE 79; RESP 15; TEMP 37.2; O2SAT 93
[2024-04-08] MEDS: 0.9 % Sodium Chloride Flush 3 ML SYRINGE IVFLUSH ×3 (08:34→20:51)
[2024-04-08 08:35] VITALS: BP 133/63; PULSE 79
[2024-04-08] MEDS: Sertraline HCL 50 MG TABLET PO (08:35)
[2024-04-08] MEDS: Aspirin Enteric Coated 81 MG TABLET.DR PO (08:35)
[2024-04-08] MEDS: Metoprolol Succinate ER 25 MG TAB.ER.24H PO (08:35)
[2024-04-08] MEDS: amLODIPine Besylate 10 MG TABLET PO (08:35)
[2024-04-08] MEDS: Cholecalciferol (Vitamin D3) 25 MCG TABLET PO (08:35)
[2024-04-08] MEDS: Sertraline HCL 25 MG TABLET PO (08:35)
[2024-04-08] MEDS: Bumetanide 1 MG TABLET 0.5 MG PO (08:35)
[2024-04-08 08:36] VITALS: BP 133/63
[2024-04-08] MEDS: allopurinoL 100 MG TABLET PO (08:36)
[2024-04-08] MEDS: Isosorbide Mononitrate 60 MG TAB.ER.24H PO (08:36)
--- NOTE | 2024-04-08 09:00 | P.PNIM_ITS ---
Subjective Subjective Date of Service: 04/08/24 Interval History: f/u on cellulitis of the right lower leg no signficant redness, but surface oozing as shown in picture Physical Exam 2 Vital Signs: Vital Signs: Last Vital Signs Temp 98.9 F 04/08/24 08:00 Pulse 79 04/08/24 08:35 Resp 15 04/08/24 08:00 BP 133/63 04/08/24 08:36 Pulse Ox 93 04/08/24 08:00 O2 Del Method Room Air 04/08/24 08:00 BMI result Body Mass Index 32.6 Const: Other: General: AO X 3, no acute distress Resp: CTA bilateral CVS: S1,S2,RRR GI: +BS, NT, no distention Skin: skin with some superficial necrosis Neuro: motor grossly intact Psych: appropriate affect Objective Data Active Medications Acetaminophen (Acetaminophen 325 Mg Tablet) 650 mg PO Q6H PRN PRN Reason: Pain, Mild (Pain Scale 1-3), fever or headache Last Admin: 04/07/24 09:38 Dose: 650 mg Documented By: KATHI Allopurinol (Allopurinol 100 Mg Tablet) 100 mg PO DAILY [facility] Last Admin: 04/08/24 08:36 Dose: 100 mg Documented By: JIMBO Amlodipine Besylate (Amlodipine Besylate 10 Mg Tablet) 10 mg PO DAILY [facility]; Protocol Last Admin: 04/08/24 08:35 Dose: 10 mg Documented By: JIMBO Aspirin (Aspirin Enteric Coated 81 Mg Tablet.) 81 mg PO DAILY [facility] Last Admin: 04/08/24 08:35 Dose: 81 mg Documented By: JIMBO Atorvastatin Calcium (Atorvastatin Calcium 20 Mg Tablet) 20 mg PO BEDTIME [facility] Last Admin: 04/07/24 21:05 Dose: 20 mg Documented By: JAKI Bumetanide (Bumetanide 1 Mg Tablet) 0.5 mg PO DAILY [facility]; Protocol Last Admin: 04/08/24 08:35 Dose: 0.5 mg Documented By: JIMBO Calcium Carbonate (Calcium Carbonate 750 Mg Tab.Chew) 750 mg PO Q4H PRN PRN Reason: Heartburn Ceftriaxone Sodium (Ceftriaxone Sodium 1 Gm Vial) 1 gm IVPUSH Q24H [facility] Last Admin: 04/07/24 17:47 Dose: 1 gm Documented By: BROFabricio Enoxaparin Sodium (Enoxaparin Sodium 40 Mg/0.4 Ml Syringe) 40 mg SUBCUT Q24H [facility] Last Admin: 04/07/24 21:05 Dose: 40 mg Documented By: JAKI Vancomycin HCl 750 mg/ Sodium (Chloride) 265 mls @ 265 mls/hr IV Q12H [facility] Last Infusion: 04/08/24 06:09 Dose: Infused Documented By: JAKI Isosorbide Mononitrate (Isosorbide Mononitrate 60 Mg Tab.Er.24h) 60 mg PO DAILY [facility]; Protocol Last Admin: 04/08/24 08:36 Dose: 60 mg Documented By: JIMBO Magnesium Hydroxide (Milk Of Magnesia 30 Ml Oral.Susp) 30 ml PO DAILY PRN PRN Reason: Constipation Melatonin (Melatonin 3 Mg Tablet) 6 mg PO BEDTIME PRN PRN Reason: Insomnia Last Admin: 04/06/24 22:21 Dose: 6 mg Documented By: DAYO Metoprolol Succinate (Metoprolol Succinate Er 25 Mg Tab.Er.24h) 25 mg PO DAILY [facility]; Protocol Last Admin: 04/08/24 08:35 Dose: 25 mg Documented By: JIMBO Pharmacy Consult (Consult Rx Vancomycin Dosing) 1 each MISCELLANE DAILY PRN PRN Reason: Consult order Sertraline HCl (Sertraline Hcl 25 Mg Tablet) 25 mg PO DAILY [facility] Last Admin: 04/08/24 08:35 Dose: 25 mg Documented By: JIMBO Sertraline HCl (Sertraline Hcl 50 Mg Tablet) 50 mg PO DAILY [facility] Last Admin: 04/08/24 08:35 Dose: 50 mg Documented By: JIMBO Sodium Chloride (0.9 % Sodium Chloride Flush 3 Ml Syringe) 3 ml IVFLUSH QSHIFT [facility] Last Admin: 04/08/24 08:34 Dose: 3 ml Documented By: JIMBO Vitamin D (Cholecalciferol (Vitamin D3) 25 Mcg Tablet) 25 mcg PO DAILY [facility] Last Admin: 04/08/24 08:35 Dose: 25 mcg Documented By: JIMBO Labs 04/06/24 11:20 04/08/24 06:39 Labs: Laboratory Results - last 24 hr 04/07/24 04/08/24 15:57 06:39 Anion Gap 13 Estim Creat Clear Calc 68.9 Estimated GFR > 60 Random Vancomycin 11.4 L Microbiology Microbiology Results: Microbiology 04/06/24 17:46 Blood Culture - Preliminary Blood - Venous No growth after 24 hours. 04/06/24 17:34 Blood Culture - Preliminary Blood - Venous No growth after 24 hours. Assessment and Plan (1) Cellulitis of right lower leg: Status: Acute Plan Pt is a 73-year-old female with a PMH significant for?HTN, HLD, CAD, venous insufficiency of right leg with chronic edema, gout, and mood disorder who presents to the ED for evaluation of right lower extremity cellulitis not responsive to outpatient therapies. Pt will be admitted to the hospital for treatment and further evaluation of right lower leg cellulitis that has failed outpatient therapy. Right lower leg cellulitis d/t venous stasis ulcer Initially diagnosed on 03/07, no improvement on Bactrim x14 days and doxy x10 days. No sepsis: Patient is started on broad-spectrum antibiotics in the ED Continue vancomycin and ceftriaxone, started 04/06/2024 Wound care consult and surgery eval for need for debridment HTN Continue amlodipine and metoprolol CAD/HLD Continue isosorbide mononitrate, statin, and aspirin Chronic right lower leg edema Continue bumetanide Gout Continue allopurinol Mood disorder Continue sertraline Full Code DVT Prophylaxis: Lovenox Pt will require a hospitalization of at least two nights for treatment of?right lower leg cellulitis that failed outpatient therapy that will require administration of IV antibiotics. Quality Stroke Does the patient have a stroke diagnosis?: No VTE Prior VTE?: No VTE Risk Level:: Medical - moderate - high VTE Device Contraindication: Treatment Not Indicated VTE Drug Contraindication: N/A - Med Ordered
[2024-04-08] MEDS: Acetaminophen 325 MG TABLET 650 MG PO (10:28)
[2024-04-08 15:24] VITALS: BP 121/62; PULSE 78; RESP 18; TEMP 36.6; O2SAT 95
[2024-04-08] MEDS: cefTRIAXone sodium 1 GM VIAL IVPUSH (17:22)
[2024-04-08 19:18] VITALS: BP 134/65; PULSE 78; RESP 16; TEMP 36.2; O2SAT 93
[2024-04-08] MEDS: Enoxaparin Sodium 40 MG/0.4 ML SYRINGE SUBCUT (20:50)
[2024-04-08] MEDS: Atorvastatin Calcium 20 MG TABLET PO (20:51)
[2024-04-09 03:59] VITALS: BP 125/63; PULSE 70; RESP 16; TEMP 36.8; O2SAT 95
[2024-04-09] MEDS: vancomycin HCL 750 MG in 0.9 % Sodium Chloride 250 ML 265 MG IV (06:13)
[2024-04-09 06:21] LABS: Estimated Glomerular Filt Rate > 60
[2024-04-09] MEDS: allopurinoL 100 MG TABLET PO (07:49)
[2024-04-09] MEDS: Cholecalciferol (Vitamin D3) 25 MCG TABLET PO (07:49)
[2024-04-09] MEDS: Sertraline HCL 50 MG TABLET PO (07:49)
[2024-04-09] MEDS: Bumetanide 1 MG TABLET 0.5 MG PO (07:49)
[2024-04-09] MEDS: Sertraline HCL 25 MG TABLET PO (07:49)
[2024-04-09] MEDS: Isosorbide Mononitrate 60 MG TAB.ER.24H PO (07:50)
[2024-04-09] MEDS: Metoprolol Succinate ER 25 MG TAB.ER.24H PO (07:50)
[2024-04-09] MEDS: amLODIPine Besylate 10 MG TABLET PO (07:50)
[2024-04-09] MEDS: Aspirin Enteric Coated 81 MG TABLET.DR PO (07:50)
[2024-04-09 08:00] VITALS: BP 155/79; PULSE 89; RESP 16; TEMP 37.5; O2SAT 92
--- NOTE | 2024-04-09 09:19 | P.CONGS_ITS ---
History of Present Illness Consult details Consult date: 04/09/24 <Aura Donis PA-C - Last Filed: 04/09/24 10:39> Reason for consult: wound care <Aura Donis PA-C - Last Filed: 04/09/24 10:39> Narrative: Ms. Gonzalez is a 73-year-old female with a PMH significant for HTN, HLD, CAD, venous insufficiency of right leg with chronic edema, gout who presented to the ED with complaints of worsening redness and drainage from right lower leg wound. She was seen at an urgent care early March initially for right lower leg cellulitis. She has since had two oral abx courses without significant improvement of the leg pain and wound drainage. She therefore presented to the ED. She denies fever, chills, nausea, vomiting. Right tibia and fibula x-ray showed diffuse soft tissue swelling with findings suggestive of edema, but no evidence of osteomyelitis. Right lower leg duplex with no evidence of DVT, the calf veins were not well visualized or evaluated. She was admitted to the hospitalist service for failed outpatient treatment and started on IV vanco and ceftriaxone. General surgery consult was obtained for possible debridement. She reports following with a vascular surgery at [facility], last visit in March, and was prescribed a compression boot. She has not received this yet. At home she has been putting an antibiotic ointment on the wound and leaving it open. <Aura Donis PA-C - Last Filed: 04/09/24 10:39> [facility] Past Medical History Medical History: Medical History Impaired fasting glucose Venous insufficiency Benign essential hypertension Chest discomfort Coronary artery disease involving [place] coronary artery of [place] heart with angina pectoris Angina pectoris Urgency incontinence <Aura Donis PA-C - Last Filed: 04/09/24 10:39> Surgical History Surgical History: Surgical History History of surgery <Aura Donis PA-C - Last Filed: 04/09/24 10:39> Social History Social History: Social History Household Members: Spouse Housing: Apartment Alcohol intake: never Patient Tobacco Use Status: Never used Tobacco service: No <Aura Donis PA-C - Last Filed: 04/09/24 10:39> Meds Allergies/Adverse reactions: Allergies Allergy/AdvReac Type Severity Reaction Status Date / Time progesterone [Progesterone] Allergy Mild SWELLING, Verified 04/06/24 10:48 itching and swelling, body edema quinapril [Accupril] Allergy Unknown Unknown Verified 04/06/24 10:48 <Aura Donis PA-C - Last Filed: 04/09/24 10:39> Active Medications: Current Medications Acetaminophen (Acetaminophen 325 Mg Tablet) 650 mg PO Q6H PRN PRN Reason: Pain, Mild (Pain Scale 1-3), fever or headache Last Admin: 04/08/24 10:28 Dose: 650 mg Allopurinol (Allopurinol 100 Mg Tablet) 100 mg PO DAILY [facility] Last Admin: 04/09/24 07:49 Dose: 100 mg Amlodipine Besylate (Amlodipine Besylate 10 Mg Tablet) 10 mg PO DAILY [facility]; Protocol Last Admin: 04/09/24 07:50 Dose: 10 mg Aspirin (Aspirin Enteric Coated 81 Mg Tablet.Dr) 81 mg PO DAILY [facility] Last Admin: 04/09/24 07:50 Dose: 81 mg Atorvastatin Calcium (Atorvastatin Calcium 20 Mg Tablet) 20 mg PO BEDTIME [facility] Last Admin: 04/08/24 20:51 Dose: 20 mg Bumetanide (Bumetanide 1 Mg Tablet) 0.5 mg PO DAILY [facility]; Protocol Last Admin: 04/09/24 07:49 Dose: 0.5 mg Calcium Carbonate (Calcium Carbonate 750 Mg Tab.Chew) 750 mg PO Q4H PRN PRN Reason: Heartburn Ceftriaxone Sodium (Ceftriaxone Sodium 1 Gm Vial) 1 gm IVPUSH Q24H [facility] Last Admin: 04/08/24 17:22 Dose: 1 gm Enoxaparin Sodium (Enoxaparin Sodium 40 Mg/0.4 Ml Syringe) 40 mg SUBCUT Q24H [facility] Last Admin: 04/08/24 20:50 Dose: 40 mg Vancomycin HCl 750 mg/ Sodium (Chloride) 265 mls @ 265 mls/hr IV Q12H [facility] Last Infusion: 04/09/24 07:15 Dose: Infused Isosorbide Mononitrate (Isosorbide Mononitrate 60 Mg Tab.Er.24h) 60 mg PO DAILY [facility]; Protocol Last Admin: 04/09/24 07:50 Dose: 60 mg Magnesium Hydroxide (Milk Of Magnesia 30 Ml Oral.Susp) 30 ml PO DAILY PRN PRN Reason: Constipation Melatonin (Melatonin 3 Mg Tablet) 6 mg PO BEDTIME PRN PRN Reason: Insomnia Last Admin: 04/06/24 22:21 Dose: 6 mg Metoprolol Succinate (Metoprolol Succinate Er 25 Mg Tab.Er.24h) 25 mg PO DAILY [facility]; Protocol Last Admin: 04/09/24 07:50 Dose: 25 mg Pharmacy Consult (Consult Rx Vancomycin Dosing) 1 each MISCELLANE DAILY PRN PRN Reason: Consult order Sertraline HCl (Sertraline Hcl 25 Mg Tablet) 25 mg PO DAILY [facility] Last Admin: 04/09/24 07:49 Dose: 25 mg Sertraline HCl (Sertraline Hcl 50 Mg Tablet) 50 mg PO DAILY [facility] Last Admin: 04/09/24 07:49 Dose: 50 mg Sodium Chloride (0.9 % Sodium Chloride Flush 3 Ml Syringe) 3 ml IVFLUSH QSUTFT [facility] Last Admin: 04/09/24 07:50 Dose: Not Given Vitamin D (Cholecalciferol (Vitamin D3) 25 Mcg Tablet) 25 mcg PO DAILY [facility] Last Admin: 04/09/24 07:49 Dose: 25 mcg <Aura Donis PA-C - Last Filed: 04/09/24 10:39> Home medications: Home Medications ?Medication ?Instructions ?Recorded ?Confirmed ?Last Taken ?Type acetaminophen 500 mg tablet 500 - 1,000 mg PO Q8H PRN Fever Or 09/05/20 04/06/24 Unknown History Pain allopurinol 100 mg tablet 100 mg PO DAILY 09/05/20 04/06/24 04/06/24 History amlodipine 10 mg tablet 10 mg PO DAILY 09/05/20 04/06/24 04/06/24 History aspirin 81 mg tablet,delayed 81 mg PO DAILY 09/05/20 04/06/24 04/06/24 History release cholecalciferol (vitamin D3) 25 25 mcg PO DAILY 09/05/20 04/06/24 04/06/24 History mcg (1,000 unit) tablet isosorbide mononitrate 60 mg 60 mg PO DAILY 09/05/20 04/06/24 04/06/24 History tablet,extended release 24 hr metoprolol succinate 25 mg 25 mg PO DAILY 09/05/20 04/06/24 04/06/24 History tablet,extended release 24 hr omega-3 fatty acids-fish oil 340 1 cap PO DAILY 09/05/20 04/06/24 04/06/24 History mg-1,000 mg capsule rosuvastatin 5 mg tablet 5 mg PO BEDTIME 09/05/20 04/06/24 04/05/24 History sertraline 25 mg tablet 25 mg PO DAILY 09/05/20 04/06/24 04/06/24 History sertraline 50 mg tablet 50 mg PO DAILY 09/05/20 04/06/24 04/06/24 History fluocinolone 0.025 % topical 1 appl topical BID 09/24/22 04/06/24 04/06/24 History ointment bacitracin 500 unit/gram topical 1 appl topical BID 04/06/24 04/06/24 04/06/24 History ointment bumetanide 0.5 mg tablet 0.5 mg PO DAILY 04/06/24 04/06/24 04/06/24 History diclofenac sodium 1 % topical gel 2 g topical BID PRN pain 04/06/24 04/06/24 Unknown History doxycycline hyclate 100 mg capsule 100 mg PO BID 04/06/24 04/06/24 04/06/24 History vibegron 75 mg tablet (Gemtesa) 75 mg PO DAILY 04/06/24 04/06/24 04/06/24 History <JESSICA Mark Last Filed: 04/09/24 10:39> Physical Exam 2 Vital Signs: Vital Signs: Last Vital Signs Temp 99.5 F 04/09/24 08:00 Pulse 89 04/09/24 08:00 Resp 16 04/09/24 08:00 BP 155/79 H 04/09/24 08:00 Pulse Ox 92 04/09/24 08:00 O2 Del Method Room Air 04/09/24 08:00 BMI result Body Mass Index 32.6 <JESSICA Mark Last Filed: 04/09/24 10:39> Const: General: comfortable, no acute distress and alert <JESSICA Mark Filed: 04/09/24 10:39> Orientation/consciousness: patient oriented x3 <Aura Donis PA-C - Last Filed: 04/09/24 10:39> Resp: Effort & Inspection: normal respiratory effort <Aura Donis PA-C - Last Filed: 04/09/24 10:39> Neuro: General: patient oriented x3 and moves all extremities <Aura Donis PA-C - Last Filed: 04/09/24 10:39> Extrem: Other: right lower extremity with moderate edema, very little residual erythema, open wound of anterior distal tibial region, very scant serous drainage noted this morning, no purulence, no necrotic tissue or eschar please see wound care note for updated progress picture from today <Aura Donis PA-C - Last Filed: 04/09/24 10:39> Results Labs Result diagrams: 04/06/24 11:20 04/09/24 05:38 <Aura Donis PA-C - Last Filed: 04/09/24 10:39> Labs: [facility] 04/09/24 05:38 Creatinine 0.60 All other labs normal. <Aura Donis PA-C - Last Filed: 04/09/24 10:39> Assessment and Plan (1) Cellulitis of right lower leg: Status: Acute <Aura Donis PA-C - Last Filed: 04/09/24 10:39> pt says she is already being followed by Vascular Surgery in [facility] looks comfortable wound clean, no necrotic tissue continue current wound care seen and examined independently <Kiran Benitez MD - Last Filed: 04/09/24 10:48> 73-year-old female with a PMH significant for HTN, HLD, CAD, venous insufficiency of right leg with chronic edema, gout admitted for right leg wound and cellulitis that failed outpatient abx therapy. The cellulitis appears significantly improved and the wound is clean appearing without necrotic tissue. No debridement currently needed. Seen with Katarina, timber grader and recommend cuticerin to wound base followed by silver alginate and kerlix wrap. Discussed with patient f/u with vascular surgery and obtaining compression boot to help with right leg edema, home wound care. Patient understands and is comfortable with plan. <Aura Donis PA-C - Last Filed: 04/09/24 10:39> Procedures Date of Service Date of Service: 04/09/24 <Aura Donis PA-C - Last Filed: 04/09/24 10:39> 04/09/24 <Kiran Benitez MD - Last Filed: 04/09/24 10:48>
--- NOTE | 2024-04-09 10:37 | P.DS_ITS ---
DS: Providers Provider Date of Service: 04/09/24 Date of admission: 04/06/24 19:30 Date of discharge: 04/09/24 Primary care physician: Katelin Shaw MD Consults: 04/06/24 19:30 Consult to Wound Care Routine Reason for consultation: Right lower leg wound 04/09/24 07:09 Consult to General Surgery Routine Consulting Provider: [facility] General Surgeons Reason for consultation: leg wound ? need for debridment DS: Diagnosis Discharge Diagnosis (1) Cellulitis of right lower leg: Status: Acute DS: Summary Hospital Course Hospital Course: Attending physician on admission: [facility] Chief Complaint: Worsening right lower leg cellulitis Pt is a 73-year-old female with a PMH significant for?HTN, HLD, CAD, venous insufficiency of right leg with chronic edema, gout, and mood disorder who presents to the ED for evaluation of right lower extremity cellulitis not responsive to outpatient therapies. Patient reports was initially diagnosed with right lower leg cellulitis on 03/07/2024 at urgent care and was prescribed a course of Bactrim x14 days. Patient finished antibiotics without improvement so she called a community dumb waiter operator who came to the house on and started her on doxycycline x10 days which she has been taking since 03/30/2024. She is set to finish this course of antibiotics in 2 days on Tuesday. Patient's symptoms have not improved on either antibiotics. Patient reports right leg swelling chronic and around baseline, but redness, open sores, and weeping of clear yellowish discharge has worsened. Denies fever or chills. No significant pain. Denies numbness or tingling in her feet. Patient reports she follows with vascular surgery and last saw in March. Went to wound care 1 year ago for evaluation but was apparently told she did not need treatment at that time. Denies chest pain/pressure, palpitations. No nausea, vomiting, abdominal pain. Denies shortness or breath or difficulty breathing. In the ED pt was hypertensive up to 169/73, vitals otherwise Labs were significant for ESR of 29 and CRP 4.20, otherwise grossly unremarkable and baseline for patient. No leukocytosis. Stable H&H. No significant electrolyte abnormalities. Renal and hepatic function WNL. BNP WNL at 59. Lactic acid WNL at 1.6. Right tibia and fibula x-ray showed diffuse soft tissue swelling with findings suggestive of edema, but no evidence of osteomyelitis. Right lower leg duplex with no evidence of DVT, the calf veins were not well visualized or evaluated. Pt was treated with vancomycin and ceftriaxone. Pt will be admitted to the hospital for treatment and further evaluation of right lower leg cellulitis that has failed outpatient therapy. Hospital course: She presented with right lower leg wound and surrounding ce llulitis d/t chronic venous stasis and lymphadema and reportedly has been treated with oral antibiotics with bactrim and doxycline as stated above. She was treated with vancomycin and Ceftriaxone in the hospital with improvement. The open sore ws evaluated by surgery with no need for debriement. She was also evaluated by wound care with recommendation for. Will prescribe oral Augmentin for anothe 5 days and advise a wound care follow up on outpatient basis. Seen with Katarina, configuration management consultant and recommend cuticerin to wound base followed by silver alginate and kerlix wrap. Discussed with patient f/u with vascular surgery and obtaining compression boot to help with right leg edema, home wound care. Patient understands and is comfortable with plan. Time Attestation Discharge Coordination Time (in mins): 35 Quality: Safe Use of Opioids Does Pt have an Active Cancer Diagnosis on the Problem List?: No Quality: Stroke Does the patient have a stroke diagnosis?: No Physical Exam Vital Signs: Vital Signs: Last Vital Signs Temp 99.5 F 04/09/24 08:00 Pulse 89 04/09/24 08:00 Resp 16 04/09/24 08:00 BP 155/79 H 04/09/24 08:00 Pulse Ox 92 04/09/24 08:00 O2 Del Method Room Air 04/09/24 08:00 BMI result Body Mass Index 32.6 DS: Data Data Completed and Pending Labs on day of discharge: Laboratory Results - last 24 hr 04/09/24 05:38 Creatinine 0.60 Estim Creat Clear Calc 77.0 Estimated GFR > 60 Preliminary micro results at discharge 04/06/24 17:46 Blood Culture - Preliminary Blood - Venous No growth after 48 hours. 04/06/24 17:34 Blood Culture - Preliminary Blood - Venous No growth after 48 hours. Discharge Plan Discharge Anticipated Discharge Date/Time: 04/09/24 10:33 Patient Disposition: Home, Self-Care Discharge Diagnosis: Chronic venous stasis ulcer, cellulitis Referrals: Katelin Shaw MD [Primary Care Provider] - 1 Week Carlos Montanez MD [Physician] - 2 Weeks Ila Jackson MD [Physician] - 1 Week Discharge Medications: Continued doxycycline hyclate 100 mg capsule 100 mg PO BID bumetanide 0.5 mg tablet 0.5 mg PO DAILY Gemtesa 75 mg tablet 75 mg PO DAILY bacitracin 500 unit/gram ointment 1 appl topical BID diclofenac sodium 1 % gel 2 g topical BID PRN (Reason: pain) cholecalciferol (vitamin D3) 25 mcg (1,000 unit) tablet 25 mcg PO DAILY sertraline 50 mg tablet 50 mg PO DAILY sertraline 25 mg tablet 25 mg PO DAILY amlodipine 10 mg tablet 10 mg PO DAILY acetaminophen 500 mg tablet 500 - 1,000 mg PO Q8H PRN (Reason: Fever Or Pain) allopurinol 100 mg tablet 100 mg PO DAILY rosuvastatin 5 mg tablet 5 mg PO BEDTIME metoprolol succinate 25 mg tablet extended release 24 hr 25 mg PO DAILY isosorbide mononitrate 60 mg tablet extended release 24 hr 60 mg PO DAILY aspirin 81 mg tablet,delayed release (DR/EC) 81 mg PO DAILY Fish Oil 340-1,000 mg capsule 1 cap PO DAILY fluocinolone 0.025 % ointment 1 appl topical BID Diet: Advance to usual diet Activity on Discharge: As tolerated Stand Alone Forms: Patient Portal Discharge page Print Language: Luxembourgish Care Plan Goals: recvery from cellulitis Health Concerns: chronic venous stasis ulcer with cellulitis Plan of Treatment: Finish taking antibiotics follow up with your Doctor in a week follow up with [facility] wound clinic Assessment: see above
--- NOTE | 2024-04-09 10:45 | MHC.CM.PN ---
Addendum entered by Elvira Blue RN 04/09/24 10:56: Per MD patient is now cleared for dc home w/ new [facility] for wound care. CM met with patient at bedside via park interpreter to discuss. Agreeable to plan and will dc home via private transport. RN aware. Original Note: Per MD rounds not medically cleared for dc at this time. May require SN for wound care on dc. [facility] has accepted. CM will continue to follow.
--- NOTE | 2024-04-09 10:48 | W.MHC.F2F ---
Service Date Service Date: 04/09/24 Encounter Date of encounter: 04/09/24 Reasons for Services Signs and symptoms assessed: wound to right leg causing pain with walking Reason for long term: wound care Homebound: Leaving the home is medically contraindicated at this time without the asist of a device and/or another person due th the listed conditions above and below. Reason homebound: pain with ambulation Homebound supporting statement: homebound due to pain with ambulation from leg ulcer d/t venous stasis and lymphadema Certification: Based on the above findings, I certify that this patient is confined to the home and needs intermittent long term care, physical therapy and/or speech therapy, or continues to need occupational therapy. The patient is under my care, and I have initiated the establishment of the plan of care. The patient will be followed by a physician who will periodically review the plan of care. Time Spent With Patient Time: Total time managing care of this patient today ____ minutes.
--- NOTE | 2024-04-09 11:10 | HO.WOUND ---
Wound Consult: Initial 73yr old?[place] [facility] [place] - See progress notes and H&P for detailed history.? Wound consult placed for Right Lower Leg.? Patient agreeable to assessment and photo documentation.? Divehi speaking shopper present throughout visit and education provided. GAUTAM Mark from general surgery saw patient together. Agreed no debridement needed and no s/s of active infection needing treatment. Right Lowe Leg Etiology: Venous Wound Wound Bed: appears to be healing - evidence of tissue resurfacing. Scattered areas of tissue loss with adherent yellow slough Drainage / Odor: serous fluid noted - no purulence noted no odor Edges: ? irregular Helga wound: Dry evidence of recent fluid loss, dark dry thickened tissue resurfacing wound bed - No Induration, Fluctuance or Warmth noted Pain: tenderness reported Goals of Treatment: ? Combination of moist wound healing and keeping resurfacing areas dry. Recommendations: 1. Turn and Reposition every 2 hours and as needed for patient comfort.? Use pillows or wedges to support off loading positions. 2. Off Load all bony prominences with use of pillows and heel boots if needed.? Apply Preventative foams where needed. ? 3. Monitor for incontinence and moisture control, use barrier creams when needed for prevention and treatment. 4. Provide adequate and supplemental nutrition.? 5. Order low air loss mattress. 6. When applicable maintain blood glucose levels per Providers order. 7. Right Lower - Elevate lower Leg - wear compression as ordered. Gently cleanse with routine showering soap and water, dry well. Apply Barrier cream to periwound. Apply Cuticerin to open wound bed, cover with Durafiber Ag, followed by ABD pad and gauze wrap. Change every 2-3 days and PRN. Recommend continued follow up with outpatient [facility] [place] for Lymphedema management and compression pump and garment follow up. Re-consult wound care Nurse for wound deterioration or wound changes.
== END 2024-04-09 12:00 | disposition home health service (06) | DRG 603 ==
LOC: HO.ED 15:42 → HO.EDOVER 19:45 → HO.S3 20:51
PROVIDERS: Physician Assistant; Registered Nurse Emergency; Admitting Provider Student in an Organized Health Care Education/Training Program; Emergency Provider Emergency Medicine Emergency Medical Services; PCP Family Medicine; Visit Provider Internal Medicine
DX: L03.115 Cellulitis of right lower limb (principal); I87.311 Chronic venous hypertension (idiopathic) with ulcer of right lower extremity; L97.819 Non-pressure chronic ulcer of other part of right lower leg with unspecified severity; I96 Gangrene, not elsewhere classified; I25.119 Atherosclerotic heart disease of native coronary artery with unspecified angina pectoris; I10 Essential (primary) hypertension; E78.5 Hyperlipidemia, unspecified; M10.9 Gout, unspecified; Z79.82 Long term (current) use of aspirin; Z79.899 Other long term (current) drug therapy
CPT/HCPCS: 36415; 73590; 80051; 80053; 80202; 82565; 83605; 83880; 85025; 85652; 86140; 87040; 93971; 99285; J0696; J1650; J3370; J3371

== ENCOUNTER → 2024-04-06 19:30 | Outpatient (BNV) | payer OTHER, SELFPAY | PROVIDERS: Admitting Provider Student in an Organized Health Care Education/Training Program; Emergency Provider Emergency Medicine Emergency Medical Services; PCP Family Medicine; Visit Provider Physician Assistant Surgical | DX: L03.115 Cellulitis of right lower limb (principal) | CPT/HCPCS: 99222 ==

== ENCOUNTER → 2024-04-06 19:30 | Outpatient (BNV) | payer OTHER, SELFPAY | PROVIDERS: Admitting Provider Student in an Organized Health Care Education/Training Program; Emergency Provider Emergency Medicine Emergency Medical Services; PCP Family Medicine; Visit Provider Internal Medicine | DX: L03.115 Cellulitis of right lower limb (principal) | CPT/HCPCS: 99223; 99232 ==

== ENCOUNTER 2024-05-08 10:20 | Outpatient (AMB) | payer OTHER, SELFPAY ==
--- NOTE | 2024-05-08 10:29 | A.OFFVIS_ITS ---
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 We utilized Patrice as an tie tape machine operator. She was seen in the ER on 04/06/2024 after a 1 month history of right lower leg cellulitis as well as a nonhealing wound on the right lower extremity. She just came back from a vacation, that she was on for the last month, which is why she has had a delayed follow up. She has been on multiple antibiotics and she states that the infection has finally cleared up. She continues on wrapping her leg with an Kennedy bandage. She denies any concerns today. She does state that she continues with pain in the right lower extremity. She denies any issues with her left lower extremity. She states she has been seen by [facility] vascular services before, who prescribed her lymphedema compression pumps, provided by [facility]. Xavi is coming out to her house on of this week to measure her. [facility] Medical History Impaired fasting glucose Venous insufficiency Benign essential hypertension Chest discomfort Coronary artery disease involving pechanga coronary artery of pechanga heart with angina pectoris Angina pectoris Urgency incontinence Surgical History History of surgery Social History Household Members: Spouse Housing: Apartment Alcohol intake: never Patient Tobacco Use Status: Never used Tobacco service: No Review of Systems ENT Reports Normal hearing present Neuro Reports Normal hearing present and Denies Sensory deficit (Neuro) Physical Exam Const General: healthy appearing and no acute distress Orientation/consciousness: patient oriented x3 HEENT Head: Yes normal to inspection Ears: hearing grossly normal bilaterally Mouth: Normal oral and palatal mucosa present Resp Effort & Inspection: normal respiratory effort and able to speak in complete sentences Auscultation: clear to auscultation bilaterally Cardio Jugular venous distension: no JVD Rate: regular rate Rhythm: regular rhythm Heart sounds: S1 normal heart sound present and S2 normal heart sound present Bruits: no abdominal aortic bruits, no carotid bruits, no femoral bruits and no renal bruits Peripheral pulses: Peripheral pulses 2+ throughout GI Inspection: Yes normal to inspection Palpation (GI): No Abdominal aortic bruit present Skin General skin exam: no rashes or lesions noted Wounds: no wounds Hair: normal Neuro General: patient oriented x3 Cranial nerves: Yes CN's II-XII intact bilaterally and Yes Normal hearing present Cognition (Neuro): normal cognition Gait exam (Neuro): Normal gait present Motor exam (neuro): 5/5 motor strength present throughout Sensory Exam: No Sensory deficit (Neuro) Extrem Other: Right lower extremity: Discoloration noted from the tibial tuberosity down to the tips of her toes. +3 pitting edema noted. Unable to palpate DP pulses due to the edema but foot is warm to the touch. Left lower extremity: No discoloration or edema noted. General: Yes normal to inspection, Yes full ROM, Yes capillary refill normal and Yes normal gait Assessment & Plan Assessment & Plan (1) Lymphedema: Code(s): I89.0 - Lymphedema, not elsewhere classified Category: Medical Plan: Ariana is presenting today on a referral from our ER/hospital due to ongoing right lower extremity cellulitis/lymphedema. She was treated outpatient with multiple antibiotics as well as a short inpatient stay the beginning of last month. She has recently returned from vacation, which is why the delay in follow up. She states she has been seen by [facility] vascular, as recently as March, and the referred her to [facility] for lymphedema pumps. She states that tactile is coming out to her house on of this week to be measured for pumps. We discussed with her that she can not see both [facility] and for vascular; she states that she would prefer to be with us due to the proximity to her house. The wounds have cleared up on physical exam. We discussed that she does not need to apply any dressings at this point. We did discuss the importance of wearing compression stockings; she states that they are very difficult to put on. We discussed that we will have her follow up with us in 1 month. We discussed that the compression pumps should help, but may not completely eradicate the swelling and edema. We did discuss signs and symptoms cellulitis and infections and to reach out to our office if any of these occur. Coding Level of Care Code New Pt Level 4 (15488) Diagnoses Lymphedema I89.0
== END 2024-05-08 11:03 | disposition home or self-care (01) ==
PROVIDERS: PCP Family Medicine; Visit Provider Physician Assistant Surgical
DX: I89.0 Lymphedema, not elsewhere classified (principal)
CPT/HCPCS: 99204

== ENCOUNTER → 2024-05-08 10:20 | Outpatient (BNVA) | payer OTHER, SELFPAY | PROVIDERS: PCP Family Medicine; Visit Provider Physician Assistant Surgical | DX: I89.0 Lymphedema, not elsewhere classified (principal) | CPT/HCPCS: 99202 ==

== ENCOUNTER 2024-05-24 14:57 | Outpatient (AMB) | payer OTHER, SELFPAY ==
--- NOTE | 2024-05-24 15:00 | A.OFFVIS_ITS ---
Intake Visit Reasons: 6m/PVR Intake Note: Patient is Present for Follow Up Urgency and Recurrent Uti Urology Medication: Gemtesa Antibiotic Allergies: None Blood Thinners: None PVR:73ml's Pharmacy Order Entry Technician Required: Yes Pharmacy Order Entry Technician Services: Pharmacy Order Entry Technician Present Pharmacy Order Entry Technician Name: HERBERT CARRILLOIMANI Accompanied by: Self / Same As Patient Allergies progesterone [Progesterone] Allergy (Mild, Verified 05/24/24 15:28) SWELLING, itching and swelling, body edema quinapril [Accupril] Allergy (Unknown, Verified 05/24/24 15:28) Unknown Medication List - Last Reconciled 05/24/24 by ISAURA Jiménez acetaminophen 500 - 1,000 mg PO Q8H PRN allopurinol 100 mg PO DAILY amlodipine 10 mg PO DAILY aspirin 81 mg PO DAILY bacitracin 1 appl topical BID bumetanide 0.5 mg PO DAILY cholecalciferol (vitamin D3) 25 mcg PO DAILY diclofenac sodium 1% 2 grams topical BID PRN fluocinolone 0.025% 1 appl topical BID isosorbide mononitrate ER 60 mg PO DAILY metoprolol succinate ER 25 mg PO DAILY omega-3 fatty acids-fish oil 340-1,000 mg 1 cap PO DAILY rosuvastatin 5 mg PO BEDTIME sertraline 25 mg PO DAILY sertraline 50 mg PO DAILY vibegron (Gemtesa) 75 mg PO DAILY HPI Comments Details: Ariana is a pleasant 73-year-old Ugandan-speaking female patient of Dr. Renteria. She has a past medical history of venous insufficiency, hypertension, coronary artery disease, angina, and urgency incontinence. She presents to the office today for follow-up of her lower urinary tract symptoms (urinary urgency, urinary frequency, urge incontinence). In discussion with the patient today she reports compliance with Gemtesa as prescribed. She is unsure as to her Estrace cream. We discussed Estrace cream in the setting of recurrent urinary tract infections. She reports feeling lower urinary tract symptoms have significantly improved. She does continue to report episodes of nocturia 2-3 times per night as well as intermittent infrequent episodes of stress incontinence while grocery shopping however feels these are manageable. She does report feeling Gemtesa has been extremely helpful in her lower urinary tract symptoms. In office urinalysis results reviewed with the patient today 3+ leukocytes positive nitrates. When asked she denies any UTI like symptoms. She does report at times noting foul-smelling urine however attributes this to her increased consumption of vegetables. She otherwise denies hematuria, dysuria, foul smelling urine, changes to urinary stream, flank pain, fever, and or chills. She is happy with her current voiding parameters. PVR 73 mL PREVIOUS NOTE: Urge incontinence Had responded to Myrbetriq 50 mg p.o. b.i.d. but associated with headaches Effective control gained with tolterodine and topical estradiol Side effects acceptable Patient with a midline cystocele offered treatment patient does not wish to pursue treatment she remains asymptomatic. 05/11/2019 Elevated BMI increase activities and decrease her calories Prolapse Repair at [facility] June 2021 Good outcome regarding this stress incontinence. 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 Angina pectoris Urgency incontinence Surgical History History of surgery Social History Household Members: Spouse Housing: Apartment Alcohol intake: never Patient Tobacco Use Status: Never used Tobacco service: No Review of Systems Const Reports no additional complaints Eyes Reports no additional complaints ENT Reports no additional complaints Card Reports as per HPI Resp Reports no additional complaints GI Reports no additional complaints Reports as per HPI Musc Reports no additional complaints Neuro Reports no additional complaints Psych Reports no additional complaints Endo Reports no additional complaints Kyaw/Lymph Reports no additional complaints Aller/Immun Reports no additional complaints Physical Exam Const General: cooperative, healthy appearing, comfortable, no acute distress, well developed, alert and awake Nutritional Appearance: overweight Orientation/consciousness: patient oriented x3 Limitations: ambulation with walker HEENT Head: Yes normal to inspection, Yes normocephalic and Yes atraumatic Ears: hearing grossly normal bilaterally Eyes General: appearance normal, both eyes and all related structures Neck Neck: Yes normal visual inspection and Yes trachea midline Chest Chest palpation & inspection: normal inspection of the chest Resp Effort & Inspection: normal respiratory effort and able to speak in complete sentences Cardio Rate: regular rate GI Inspection: Yes normal to inspection General: Yes no CVA tenderness Back/Spine/Pelvis Back: no CVA tenderness Skin General skin exam: no rashes or lesions noted Neuro General: patient oriented x3 Extrem General: Yes normal to inspection Psych Appearance: grossly normal and well kempt Mental Status: mental status grossly normal Speech and movement: Normal speech and movement present and Clear speech present Affect: normal affect Attitude: cooperative Thought process: Normal thought process present Thought content: Normal thought content present Insight: Fair insight present (Psych) Judgement: Fair judgement present (Psych) Office Procedures Post Void Residual Post Residual Void Post Void Residual (PVR): 73 [id number]-[id number] Void Residual by ultrasound Results AMB Urinalysis, Automated UA Leukoctes 500 Edmund/uL Last Edit by Zenoss on 05/24/24 15:18 UA Nitrite Last Edit by Zenoss on 05/24/24 15:18 UA Urobilinogen 0.2 mg/dL Last Edit by Zenoss on 05/24/24 15:18 UA Protein 0 mg/dL Last Edit by Zenoss on 05/24/24 15:18 UA pH 6.0 Last Edit by Zenoss on 05/24/24 15:18 UA Blood 10 Umer/uL Last Edit by Zenoss on 05/24/24 15:18 UA Specific Iselin 1.015 Last Edit by Zenoss on 05/24/24 15:18 UA Ketone Last Edit by Zenoss on 05/24/24 15:18 UA Bilirubin 0 mg/dL Last Edit by Zenoss on 05/24/24 15:18 UA Glucose 0 mg/dL Last Edit by Zenoss on 05/24/24 15:18 Results Reviewed Results Reviewed: Laboratory Last Values Urine pH (Auto) 6.0 05/24/24 15:08 Specific Iselin (Auto) 1.015 05/24/24 15:08 Urine Protein (Auto) 0 mg/dL 05/24/24 15:08 Glucose (UA)(Auto) 0 mg/dL 05/24/24 15:08 Urine Blood (Auto) 10 Umer/uL 05/24/24 15:08 Urine Bilirubin (Auto) 0 mg/dL 05/24/24 15:08 Urine Urobilinogen (Auto) 0.2 mg/dL 05/24/24 15:08 Leukocyte Esterase (Auto) 500 Edmund/uL 05/24/24 15:08 Assessment & Plan Assessment & Plan (1) Lower urinary tract symptoms: Code(s): R39.9 - Unspecified symptoms and signs involving the genitourinary system Category: Medical (2) Urgency incontinence: Code(s): N39.41 - Urge incontinence Category: Medical (3) Urinary tract infection: Code(s): N39.0 - Urinary tract infection, site not specified Category: Medical Plan In office urinalysis results reviewed with the patient today; as noted above; will send for urine culture; will await results for possible treatment options. PVR 73 mL. Continue Gemtesa. Restart Estrace cream as discussed and prescribed; refill provided. Discussed UTI prevention with D mannose supplement, vitamin-C, increasing fluid intake, behavioral therapy with timed voiding, perineal hygiene and postcoital voiding, and management of constipation with stool softeners and increased fiber intake. Patient reports be happy with current voiding parameters. We discussed importance of adequate hydration relation to recurrent urinary tract infections. She denies any bothersome urinary issues or concerns. Orders: Orders AMB Urinalysis Automated Today Z13.9 - Encounter for screening, unspecified Urine Culture Today N39.0 - Urinary tract infection, site not specified AMB Post Void Residual by ultrasound Today R39.9 - Unspecified symptoms and signs involving the genitourinary system Medications: New estradiol 0.01%(0.1mg/gram) (Estrace) Apply a pea-sized amount to urethra 3 times per week 1 g vaginal 3XW 42.5 grams 3RF 90 days Patient Instructions: The patient had an opportunity to ask questions regarding the treatment plan. All questions were answered. Physical exam, labs, and imaging were discussed and reviewed in detail. As well as risks, benefits, and discussion of treatment choices. No major barriers to understanding were identified. The patient expressed understanding and agreement with the above treatment plan. The patient was made aware they should contact our office by phone for worsening of their current condition, the appearance of new symptoms, or with any questions or concerns. Compliance is encouraged with any medications and follow up testing that is ordered. It is a privilege to be allowed the opportunity to participate in? your urological care.? Again, if you have any questions or concerns If you have any questions or concerns please do not hesitate to contact me. The office is [phone]. This note is constructed using voice recognition software. While every effort has been made to ensure accuracy cloud administrator errors may have been included. Yours sincerely, ISAURA Jiménez Coding Level of Care Code Est Pt Level 4 (56898) Complex EM visit Add On G2211 Diagnoses Lower urinary tract symptoms R39.9 Urgency incontinence N39.41 Urinary tract infection N39.0 CPT Codes Post Residual Void - PVR CPT Code: 78302-Nkcw Void Residual by ultrasound ([id number])
== END 2024-05-24 15:32 | disposition home or self-care (01) ==
PROVIDERS: PCP Family Medicine; Visit Provider Nurse Practitioner Family
DX: R39.9 Unspecified symptoms and signs involving the genitourinary system (principal); N39.41 Urge incontinence; N39.0 Urinary tract infection, site not specified; Z13.9 Encounter for screening, unspecified
CPT/HCPCS: 99214; G2211

== ENCOUNTER 2024-05-24 14:57 | Outpatient (REF) | payer OTHER, SELFPAY | END 2024-05-24 14:58 | disposition home or self-care (01) | LOC: HO.LNP 14:57 | PROVIDERS: PCP Family Medicine; Visit Provider Nurse Practitioner Family | DX: R39.9 Unspecified symptoms and signs involving the genitourinary system (principal); N39.41 Urge incontinence; N39.0 Urinary tract infection, site not specified; R35.1 Nocturia; Z13.9 Encounter for screening, unspecified | CPT/HCPCS: 51798; 81003; 87086; 87088; 87186; 99212 ==

== ENCOUNTER 2024-05-24 14:57 | Outpatient (REF) | payer OTHER, SELFPAY | END 2024-05-24 14:58 | disposition home or self-care (01) | LOC: HO.LNP 14:57 | PROVIDERS: Visit Provider Nurse Practitioner Family | DX: Z13.89 Encounter for screening for other disorder (principal) | CPT/HCPCS: 87086; 87088; 87186 ==

== ENCOUNTER 2024-06-12 10:17 | Outpatient (AMB) | payer OTHER, SELFPAY ==
--- NOTE | 2024-06-12 10:19 | MHC.OFFVIS ---
Intake Visit Reasons: 1 month follow up- pain in right leg Intake Note: Patient presents for one month follow up and pain in right leg. Allergies progesterone [Progesterone] Allergy (Mild, Verified 06/12/24 10:20) SWELLING, itching and swelling, body edema quinapril [Accupril] Allergy (Unknown, Verified 06/12/24 10:20) Unknown HPI HPI 1 month follow up- pain in right leg: Details: Ariana is presenting today for a follow up and concerns for ongoing right lower extremity pain. She states she recently got her compression pumps from [facility] and states they have been helping a little bit with the swelling. She does continue to endorse pain in the right lower calf area. We utilized Jessica as an flakeboard line tender. [facility] Medical History Impaired fasting glucose Venous insufficiency Benign essential hypertension Chest discomfort Coronary artery disease involving [place] coronary artery of [place] heart with angina pectoris Angina pectoris Urgency incontinence Surgical History History of surgery Social History Household Members: Spouse Housing: Apartment Alcohol intake: never Patient Tobacco Use Status: Never used Tobacco service: No Review of Systems Const Reports as per HPI and Denies weakness ENT Reports Normal hearing present and Denies dizziness Card Reports as per HPI, Denies chest pain, Denies chest pain at rest, Denies chest pain with activity, Denies dyspnea and Denies dyspnea on exertion Resp Reports as per HPI, Denies cough, Denies dyspnea and Denies dyspnea on exertion GI Reports as per HPI, Denies abdominal pain, Denies nausea and Denies vomiting Musc Denies numbness Skin/Breast Reports as per HPI, Denies erythema and Denies wounds Neuro Reports Normal hearing present, Denies dizziness, Denies numbness, Denies Sensory deficit (Neuro) and Denies weakness Psych Reports no additional complaints Endo Reports no additional complaints Physical Exam Const General: healthy appearing and no acute distress Orientation/consciousness: patient oriented x3 HEENT Head: Yes normal to inspection Ears: hearing grossly normal bilaterally Mouth: Normal oral and palatal mucosa present Resp Effort & Inspection: normal respiratory effort and able to speak in complete sentences Auscultation: clear to auscultation bilaterally Cardio Jugular venous distension: no JVD Rate: regular rate Rhythm: regular rhythm Heart sounds: S1 normal heart sound present and S2 normal heart sound present Bruits: no abdominal aortic bruits, no carotid bruits, no femoral bruits and no renal bruits Peripheral pulses: Peripheral pulses 2+ throughout GI Inspection: Yes normal to inspection Palpation (GI): No Abdominal aortic bruit present Skin General skin exam: no rashes or lesions noted Wounds: no wounds Hair: normal Neuro General: patient oriented x3 Cranial nerves: Yes Normal hearing present Cognition (Neuro): normal cognition Gait exam (Neuro): Normal gait present Motor exam (neuro): 5/5 motor strength present throughout Sensory Exam: No Sensory deficit (Neuro) Extrem Other: Right lower extremity: Discoloration noted from the tibial tuberosity down to the tips of her toes. +2/3 pitting edema noted. No wounds or open areas noted. No weeping noted. Unable to palpate DP pulses due to the edema but foot is warm to the touch. Left lower extremity: No discoloration or edema noted. General: Yes normal to inspection, Yes full ROM, Yes capillary refill normal and Yes normal gait Assessment & Plan Assessment & Plan (1) Lymphedema: Code(s): I89.0 - Lymphedema, not elsewhere classified Category: Medical Plan: Ariana is presenting today for a follow up as well as concerns of right lower extremity pain. She recently received her pumps from [facility] for lymphedema and states she has been using them daily for an hour at a time. She continues have concerns of bilateral lower extremity swelling as well as pain in her right lower leg. We had a lengthy discussion that the compression pumps take awhile to work and all of her swelling may not completely go away. I discussed with her that there were no wounds or any open areas and no signs of infection, so there is no other treatment options at this point. We discussed the importance of continuing with compression stockings, elevation, and physical activity. At this point, we will be seeing her as an as needed basis. If there are any questions or concerns, please do not hesitate to reach out to us. Coding Level of Care Code Est Pt Level 4 (11421) Diagnoses Lymphedema I89.0
== END 2024-06-12 10:30 | disposition home or self-care (01) ==
LOC: HO.HVS 10:17
PROVIDERS: PCP Family Medicine; Visit Provider Physician Assistant Surgical
DX: I89.0 Lymphedema, not elsewhere classified (principal)
CPT/HCPCS: 99214

== ENCOUNTER → 2024-06-12 10:17 | Outpatient (BNVA) | payer OTHER, SELFPAY | PROVIDERS: PCP Family Medicine; Visit Provider Physician Assistant Surgical | DX: I89.0 Lymphedema, not elsewhere classified (principal) | CPT/HCPCS: 99212 ==

== ENCOUNTER 2024-08-28 10:41 | Outpatient (AMB) | payer OTHER, SELFPAY ==
--- NOTE | 2024-08-28 10:46 | A.OFFVIS_ITS ---
Intake Visit Reasons: 3m/PVR Intake Note: Patient presents today for follow up on: uti and incontinence Urology Medication: Gemtesa, Estrace Cream Antibiotic Allergies: None Blood Thinners: Aspirin PVR: 93ml's [employer] Trainer Required: Yes [employer] Trainer Services: [employer] Trainer Present Green Jobs Trainer Name: Pavithra [id number] Accompanied by: Self / Same As Patient Allergies progesterone [Progesterone] Allergy (Mild, Verified 08/28/24 11:32) SWELLING, itching and swelling, body edema quinapril [Accupril] Allergy (Unknown, Verified 08/28/24 11:32) Unknown Medication List - Last Reconciled 08/28/24 by ISAURA Jiménez acetaminophen 500 - 1,000 mg PO Q8H PRN allopurinol 100 mg PO DAILY amlodipine 10 mg PO DAILY aspirin 81 mg PO DAILY bacitracin 1 appl topical BID bumetanide 0.5 mg PO DAILY cholecalciferol (vitamin D3) 25 mcg PO DAILY diclofenac sodium 1% 2 grams topical BID PRN estradiol 0.01%(0.1mg/gram) (Estrace) 1 g vaginal 3XW 90 days fluocinolone 0.025% 1 appl topical BID isosorbide mononitrate ER 60 mg PO DAILY metoprolol succinate ER 25 mg PO DAILY omega-3 fatty acids-fish oil 340-1,000 mg 1 cap PO DAILY rosuvastatin 5 mg PO BEDTIME sertraline 25 mg PO DAILY sertraline 50 mg PO DAILY sulfamethoxazole-trimethoprim 800-160 mg (Bactrim DS) 1 tab PO BID 7 days vibegron (Gemtesa) 75 mg PO DAILY HPI Comments Details: Ariana is a pleasant 74-year-old [place]ian-speaking female patient of Dr. Renteria. She has a past medical history of venous insufficiency, hypertension, coronary artery disease, angina, and urgency incontinence. She presents to the office today for follow-up of her lower urinary tract symptoms (urinary urgency, urinary frequency, urge incontinence) as well as her recurrent urinary tract infections. In discussion with the patient today she reports compliance with Gemtesa and Estrace cream as prescribed. She reports feeling Gemtesa has been helpful in treatment of her lower urinary tract symptoms however she does continue to experience episodes of urge incontinence after administration/consum ption of her Lasixs. We discussed importance of timed/scheduled voiding given patients decreased mobility. We discussed correlation of lower urinary tract symptoms after consumption of Lasix. In office urinalysis results were reviewed with the patient today positive nitrates noted. When asked she does report noting foul-smelling urine over the last 1-2 weeks. However, during patient's last office visit she was also noted to have a urinary tract infection. Urine culture 05/26 ecoli. We discussed sending urine sample today for microgen testing for further assessment evaluation. We discussed potential causes of urinary tract infections as well as further treatment options and risks and benefits of these treatment options. She otherwise denies hematuria, dysuria, changes to urinary stream, flank pain, fever, and or chills. She is happy with her current voiding parameters. PVR 93 mL PREVIOUS NOTE: Urge incontinence Had responded to Myrbetriq 50 mg p.o. b.i.d. but associated with headaches Effective control gained with tolterodine and topical estradiol Side effects acceptable Patient with a midline cystocele offered treatment patient does not wish to pursue treatment she remains asymptomatic. 05/11/2019 Elevated BMI increase activities and decrease her calories Prolapse Repair at [facility] June 2021 Good outcome regarding this stress incontinence. [facility] Medical History Impaired fasting glucose Venous insufficiency Benign essential hypertension Chest discomfort Coronary artery disease involving [place] coronary artery of [place] heart with angina pectoris Angina pectoris Urgency incontinence Surgical History History of surgery Social History Household Members: Spouse Housing: Apartment Alcohol intake: never Patient Tobacco Use Status: Never used Tobacco service: No Review of Systems Const Reports no additional complaints Eyes Reports no additional complaints ENT Reports no additional complaints Card Reports as per HPI Resp Reports no additional complaints GI Reports no additional complaints Reports as per HPI Musc Reports no additional complaints Neuro Reports no additional complaints Psych Reports no additional complaints Endo Reports no additional complaints Kyaw/Lymph Reports no additional complaints Aller/Immun Reports no additional complaints Physical Exam Const General: cooperative, comfortable, no acute distress, well developed, alert and awake Nutritional Appearance: overweight Orientation/consciousness: patient oriented x3 Limitations: ambulation with walker HEENT Head: Yes normal to inspection, Yes normocephalic and Yes atraumatic Ears: hearing grossly normal bilaterally Neck Neck: Yes normal visual inspection and Yes trachea midline Chest Chest palpation & inspection: normal inspection of the chest Resp Effort & Inspection: normal respiratory effort and able to speak in complete sentences Cardio Rate: regular rate GI Inspection: Yes normal to inspection General: Yes no CVA tenderness Back/Spine/Pelvis Back: no CVA tenderness Skin Other: Bilateral lower extremity edema right side greater than left General skin exam: no rashes or lesions noted Neuro General: patient oriented x3 Extrem General: Yes normal to inspection Psych Appearance: grossly normal and well kempt Mental Status: mental status grossly normal Speech and movement: Normal speech and movement present and Clear speech present Affect: normal affect Attitude: cooperative Thought process: Normal thought process present Thought content: Normal thought content present Insight: Fair insight present (Psych) Judgement: Fair judgement present (Psych) Office Procedures Post Void Residual Post Residual Void Post Void Residual (PVR): 93 [id number] Void Residual by ultrasound Results AMB Urinalysis, Automated UA Leukoctes 500 Edmund/uL Last Edit by [employer] on 08/28/24 11:06 UA Nitrite Last Edit by [employer] on 08/28/24 11:06 UA Urobilinogen 0.2 mg/dL Last Edit by ALEXANDALEXA on 08/28/24 11:06 UA Protein 0 mg/dL Last Edit by ALEXANDALEXA on 08/28/24 11:06 UA pH 6.0 Last Edit by ALEXANDALEXA on 08/28/24 11:06 UA Blood 80 Umer/uL Last Edit by ALEXANDALEXA on 08/28/24 11:06 UA Specific [place] 1.015 Last Edit by ALEXANDALEXA on 08/28/24 11:06 UA Ketone Last Edit by ALEXANDALEXA on 08/28/24 11:06 UA Bilirubin 0 mg/dL Last Edit by ALEXANDALEXA on 08/28/24 11:06 UA Glucose 0 mg/dL Last Edit by Ivett Adams on 08/28/24 11:06 Results Reviewed Results Reviewed: Laboratory Last Values Urine pH (Auto) 6.0 08/28/24 10:54 Specific [place] (Auto) 1.015 08/28/24 10:54 Urine Protein (Auto) 0 mg/dL 08/28/24 10:54 Glucose (UA)(Auto) 0 mg/dL 08/28/24 10:54 Urine Blood (Auto) 80 Umer/uL 08/28/24 10:54 Urine Bilirubin (Auto) 0 mg/dL 08/28/24 10:54 Urine Urobilinogen (Auto) 0.2 mg/dL 08/28/24 10:54 Leukocyte Esterase (Auto) 500 Edmund/uL 08/28/24 10:54 Assessment & Plan Assessment & Plan (1) Urinary tract infection: Code(s): N39.0 - Urinary tract infection, site not specified Category: Medical (2) Lower urinary tract symptoms: Code(s): R39.9 - Unspecified symptoms and signs involving the genitourinary system Category: Medical (3) Urgency incontinence: Code(s): N39.41 - Urge incontinence Category: Medical Plan In office urinalysis results reviewed with the patient today; will send for microgen PVR 93 mL. Continue Estrace cream as well as Gemtesa as prescribed. We discussed importance of timed/scheduled voiding in relation to urge incontinence and patient has decreased mobility. We discussed further workup to include in office cystoscopy and or urodynamics if symptoms persist and/or worsen. Start Bactrim as discussed and prescribed. We discussed potential causes of urinary tract infections. Discussed UTI prevention with D mannose supplement, vitamin-C, increasing fluid intake, behavioral therapy with timed voiding, perineal hygiene and postcoital voiding, and management of constipation with stool softeners and increased fiber intake. Will obtain retroperitoneal ultrasound for further assessment evaluation. Follow-up in 1-3 month with imaging and PVR; or sooner with any issues, concerns, and or questions Orders: Orders AMB Urinalysis Automated Today Z13.9 - Encounter for screening, unspecified AMB Post Void Residual by ultrasound Today N39.0 - Urinary tract infection, site not specified US retroperitoneal comp Today N39.0 - Urinary tract infection, site not specified, N39.41 - Urge incontinence, R39.9 - Unspecified symptoms and signs involving the genitourinary system Medications: New sulfamethoxazole-trimethoprim 800-160 mg (Bactrim DS) 1 tab PO BID 7 days 14 tabs 0RF N39.0 - Urinary tract infection, site not specified Patient Instructions: The patient had an opportunity to ask questions regarding the treatment plan. All questions were answered. Physical exam, labs, and imaging were discussed and reviewed in detail. As well as risks, benefits, and discussion of treatment choices. No major barriers to understanding were identified. The patient expre ssed understanding and agreement with the above treatment plan. The patient was made aware they should contact our office by phone for worsening of their current condition, the appearance of new symptoms, or with any questions or concerns. Compliance is encouraged with any medications and follow up testing that is ordered. It is a privilege to be allowed the opportunity to participate in? your urological care.? Again, if you have any questions or concerns If you have any questions or concerns please do not hesitate to contact me. The office is [phone]. This note is constructed using voice recognition software. While every effort has been made to ensure accuracy deputy brand inspector errors may have been included. Yours sincerely, ISAURA Jiménez Coding Level of Care Code Est Pt Level 4 (11242) Complex EM visit Add On G2211 Diagnoses Urinary tract infection N39.0 Lower urinary tract symptoms R39.9 Urgency incontinence N39.41 CPT Codes Post Residual Void - PVR CPT Code: 24008-Fpvu Void Residual by ultrasound ([id number])
--- OUTSIDE RECORDS SUMMARY | 2024-08-28 12:22 | XMS_ITS | Encounter Summary ---
Author Organization [facility] Address [address] [place] [address] Care Team Providers Care Emergency Department Coordinator Name Role Phone Katelin Shaw Primary Care Provider Bhavesh e Encounter Details Date Type Department Care Team Description 01/25/2018 Release of Information Medical Records [address] [place] [id number] Abstract, Provider Social History Tobacco Use Types Packs/Day Years Used Date Smoking Tobacco: Former Smokeless Tobacco: Never Sex Assigned at Date Recorded Not on file Job Start Date Occupation Industry Not on file Not on file Not on file documented as of this encounter Plan of Treatment Not on file documented as of this encounter Visit Diagnoses Not on filedocumented in this encounter Care Teams Emergency Department Coordinator Relationship Specialty Start Date End Date Katelin Shaw PCP - General Family Practice 01/08/14 documented as of this encounter
--- OUTSIDE RECORDS SUMMARY | 2024-08-28 12:22 | XMS_ITS | Clinical Summary ---
Author Organization [employer] Address [address] [place] [address] [address] [place] [address] Care Team Providers Care Sr. Director Product Management Name Role Phone Katelin Shaw MD Primary Care Provider [phone] Allergies Active Allergy Reactions Criticality Noted Date Comments Kennedy Inhibitors 05/04/2010 Other reaction(s): hives Hydrochlorothiazide 11/15/2012 Other reaction(s): Gout Progesterone Swelling 05/04/2010 Quinapril Hcl 10/22/2022 Other reaction(s): hives/rash Medications estradiol (Estrace) 0.1 MG/GM vaginal cream APPLY PEA SIZED AMOUNT TO URETHRA ONCE DAILY 07/21/19 22 Active SM Dry Eye Relief 0.2-0.2-1 % solution INSTILL 1 DROP IN EACH EYE FOUR TIMES DAILY 08/26/19 22 Active Myrbetriq 25 MG 24 hr tablet Take 25 mg by mouth in the morning. 04/01/20 22 Active Artificial Tears 1.4 % ophthalmic solution INSTILL 1 DROP IN EACH EYE FOUR TIMES DAILY 11/14/19 22 Active sertraline (Zoloft) 50 MG tablet 06/04/19 23 Active trospium (Sanctura) 20 MG tablet 06/04/19 23 Active Gemtesa 75 MG tablet 06/04/19 23 Active White Petrolatum-Mine ral Oil (LubriFresh P.M.) ointment APPLY SMALL AMOUNT IN EACH EYE AT BEDTIME 11/14/19 22 Active fluocinolone (Synalar) 0.025 % cream Apply thin layer to affected area once daily 60 g 3 10/03/19 23 Active betamethasone, augmented, (Diprolene) 0.05 % ointmentIndicat ions:Venous stasis dermatitis of both lower extremities Apply topically 2 times daily. 45 g 2 07/22/19 24 Active Diclofenac Sodium 1 % gel Apply to affected area once or twice daily as needed for pain 150 g 3 08/11/19 24 Active amLODIPine (Norvasc) 10 MG tablet TAKE 1 TABLET BY MOUTH EVERY MORNING 90 tablet 3 11/04/19 24 Active metoprolol succinate XL (Toprol-XL) 25 MG 24 hr tablet TAKE 1 TABLET BY MOUTH EVERY MORNING 90 tablet 3 11/04/19 24 Active isosorbide mononitrate ER (Imdur) 60 MG 24 hr tablet TAKE 1 TABLET BY MOUTH EVERY MORNING 90 tablet 3 11/04/19 24 Active omega-3 (Fish Oil) 1000 MG capsule TAKE 1 CAPSULE BY MOUTH EVERY MORNING 90 capsule 3 11/11/19 24 Active sertraline (Zoloft) 25 MG tablet TAKE 1 TABLET BY MOUTH EVERY MORNING 30 tablet 3 11/18/19 24 Active bacitracin 500 UNIT/GM ointmentIndicat ions:Cellulitis of right lower extremity Apply topically 2 times daily. 14 g 03/07/20 24 Active Aspirin Low Dose 81 MG EC tabletIndicatio ns:Coronary artery disease involving squaxin heart without angina pectoris, unspecified vessel or lesion type TAKE 1 TABLET BY MOUTH EVERY MORNING 90 tablet 3 04/16/20 24 Active rosuvastatin (Crestor) 5 MG tablet TAKE 1 TABLET BY MOUTH AT BEDTIME 90 tablet 1 05/18/19 25 Active Acetaminophen Extra Strength 500 MG tablet TAKE 1 TO 2 TABLETS BY MOUTH EVERY 8 HOURS NEEDED. NO MORE THAN 6 TABLETS PER 24 HOURS 90 tablet 3 05/28/19 25 Active D3-1000 25 MCG (1000 UT) capsuleIndicati ons:Vitamin D deficiency TAKE 1 CAPSULE BY MOUTH EVERY MORNING 90 capsule 3 06/13/19 25 Active allopurinol (Zyloprim) 100 MG tablet TAKE 1 TABLET BY MOUTH EVERY MORNING 90 tablet 08/10/19 25 Active bumetanide (Bumex) 0.5 MG tablet TAKE 1 TABLET BY MOUTH EVERY MORNING 30 tablet 1 08/10/19 25 Active bumetanide (Bumex) 0.5 MG tablet TAKE 1 TABLET BY MOUTH EVERY MORNING 30 tablet 11 09/12/19 24 025 Discontinued allopurinol (Zyloprim) 100 MG tablet TAKE 1 TABLET BY MOUTH EVERY MORNING 90 tablet 3 09/14/19 24 025 Discontinued Active Problems Problem Noted Date Diagnosed Date Acute pain of right shoulder 06/26/2024 Assessment & Plan (06/26/2024 12:13 PM EST): - 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 biceps tendinitis - patient is not interested in PT or injection - will hold further evaluation at this time - activity modification and judicious use of APAP Cellulitis 03/07/2024 Assessment & Plan (06/26/2024 12:15 PM EST): - Treated with TMP/SMX and doxycycline as outpatient in March, failed - Hospitalized 04/06-04/09/24 and received IV Vancomycin and ceftriaxone, and discharged with Augmentin to complete 7 day course - Evaluated by general surgery team, and debridement was not indicated - Wound care nurse recommended to apply cuticerin to wound base followed by silver alginate and kerlix wrap. Recommended to follow up with vascular surgery and obtaining compression boot and pneumatic compression device to help with right leg edema. Discharged with a referral to home wound care - Completed Augmentin, no longer needs Wound care Assessment & Plan (04/12/2024 1:16 PM EST): - Treated with TMP/SMX and doxycycline as outpatient in March, failed - Hospitalized 04/06-04/09/24 and received IV Vancomycin and ceftriaxone, and discharged with Augmentin to complete 7 day course - Evaluated by general surgery team, and debridement was not indicated - Wound care nurse recommended to apply cuticerin to wound base followed by silver alginate and kerlix wrap. Recommended to follow up with vascular surgery and obtaining compression boot and pneumatic compression device to help with right leg edema. Discharged with a referral to home wound care - Patient is traveling to [place] tomorrow with few dressing supplies, that will last for 7-10 days. - Her daughter agreed to sampler pickup wound supply and send to the patient in [place] - Given Rx Augmentin, in case her cellulitis wound worsens. Reviewed ER precautions. - Will request expedite prescription of medical supplies - Will arrange visiting nurse, to start on 05/05/24. Assessment & Plan (03/07/2024 10:22 AM EST): Patient will be seen by vascular on 03/09/24 I advise no to miss this appointment I will treat for cellulitis with bactrim DS for 2 weeks I also notice tinea pedis I will treat it with terbinafine 250mg daily for 14 days, I reviewed labs LFTs and eGFR normal Apply bacitracin on affected area Wound culture If symptoms persist or worse got to the emergency room Urge incontinence 12/20/2023 Assessment & Plan (12/25/2023 4:01 PM EDT): - following with [facility] Urogyn and [facility] Uro - Continue Gemtesa and Estrace Left foot pain 12/20/2023 Assessment & Plan (12/20/2023 12:08 PM EDT): - will evaluate with XR - most likely due to overuse of left leg to compensate for right foot pain - patient requests medical shoes, will write script - informed the patient that she does not have diabetes and may not be covered, however patient states that her insurance company, [employer], suggested that patient should get prescription Stasis dermatitis 08/22/2023 Assessment & Plan (08/22/2023 5:11 AM EDT): - seen by vascular specialist; no significant venous insufficiency; Dx lymphedema - recurrent redness despite Tx for cellulitis multiple times - seen by track service person; Dx stasis dermatitis. Rx betamethasone ointment - improving and stable Arthritis of midfoot 08/11/2023 Uterovaginal prolapse 08/11/2023 History of recurrent UTI (urinary tract infectio n) 08/11/2023 Lymphedema 04/11/2023 Assessment & Plan (06/26/2024 12:14 PM EST): - following with [facility] vascular specialist, last seen in Mar 2024 - Continue compression, leg elevation, and fluid balance - Continue pneumatic compression device Assessment & Plan (04/12/2024 1:17 PM EST): - following with [facility] vascular specialist, last seen in Mar 2024 - Continue compression, leg elevation, and fluid balance - Check the status of pneumatic compression device Assessment & Plan (12/20/2023 11:06 AM EDT): - evaluated by vascular speicalist Assessment & Plan (08/22/2023 5:13 AM EDT): - evaluated by vascular speicalist Assessment & Plan (04/17/2023 11:40 AM EST): - evaluated by vascular speicalist Complete edentulism 12/21/2022 Dyslipidemia 09/22/2022 Assessment & Plan (06/26/2024 9:01 AM EST): - Last lipid profile: 07/22/23 - continue rosuvastatin 5 mg at bedtime - continue working on lifestyle modifications Assessment & Plan (12/25/2023 4:03 PM EDT): - Last lipid profile: 07/22/23 - continue rosuvastatin 5 mg at bedtime - continue working on lifestyle modifications Assessment & Plan (08/22/2023 5:12 AM EDT): - Last lipid profile: 07/22/23 - continue rosuvastatin 5 mg at bedtime - continue working on lifestyle modifications Assessment & Plan (04/17/2023 11:40 AM EST): - Last lipid profile: 07/19/22 TC 108; TG 102; HDL 43; LDL 46 - continue rosuvastatin 5 mg at bedtime - continue working on lifestyle modifications Assessment & Plan (12/06/2022 10:36 AM EDT): - Last lipid profile: 07/19/22 TC 108; TG 102; HDL 43; LDL 46 - continue rosuvastatin 5 mg at bedtime - continue working on lifestyle modifications Assessment & Plan (10/02/2022 6:41 PM EDT): - Last lipid profile: 07/19/22 TC 108; TG 102; HDL 43; LDL 46 - continue rosuvastatin 5 mg at bedtime - continue working on lifestyle modifications Chronic foot pain, right 06/27/2022 Assessment & Plan (12/20/2023 11:06 AM EDT): -X-ray demonstrated degenerative changes of ankle and midfoot. Pes planus alignment -pt has known venous insufficiency -Evaluated by rug underlay machine operator, and recommended to wear comfortable shoes -Tried and completed PT. 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 No fluid collection or abscess. -Seen in ED on 09/16/22. Dx Cellulitis, negative DVT. Rx Doxycycline. -Dx lymphedema Assessment & Plan (08/11/2023 10:04 AM EDT): -X-ray demonstrated degenerative changes of ankle and midfoot. Pes planus alignment -pt has known venous insufficiency -Evaluated by rug underlay machine operator, and recommended to wear comfortable shoes -Tried and completed PT. 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 No fluid collection or abscess. -Seen in ED on 09/16/22. Dx Cellulitis, negative DVT. Rx Doxycycline. -Dx lymphedema Assessment & Plan (04/17/2023 11:39 AM EST): -X-ray demonstrated degenerative changes of ankle and midfoot. Pes planus alignment -pt has known venous insufficiency -Evaluated by rug underlay machine operator, and recommended to wear comfortable shoes -Tried and completed PT. 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 ??No fluid collection or abscess. -Seen in ED on 09/16/22. Dx Cellulitis, negative DVT. Rx Doxycycline. -Dx lymphedema -Request note from orthopedist because pt states she is recommended to have a surgery Assessment & Plan (12/06/2022 10:36 AM EDT): -X-ray demonstrated degenerative changes of ankle and midfoot. Pes planus alignment -MRI did not show infection or malignancy -US was negative for DVT; pt has known venous insufficiency -Followed by [facility] provider -Followed by rug underlay machine operator, and recommended to wear comfortable shoes -Tried and completed PT. -Encouraged to follow instructions by orthopedist, vascular specialist, and rug underlay machine operator Assessment & Plan (10/02/2022 6:39 PM EDT): -X-ray demonstrated degenerative changes of ankle and midfoot. Pes planus alignment -pt has known venous insufficiency -Evaluated by rug underlay machine operator, and recommended to wear comfortable shoes -Tried and completed PT. 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 ??No fluid collection or abscess. -Seen in ED on 09/16/22. Dx Cellulitis, negative DVT. Rx Doxycycline. -Pt has an upcoming appt with many specialists and seems to be frustrated. Will speak with the patient's daughter. -Rx Acetaminophen -Rx bumetanide per patient request Assessment & Plan (2022 5:56 PM EST): -X-ray demonstrated degenerative changes of ankle and midfoot. Pes planus alignment -US was negative for DVT; pt has known venous insufficiency -Evaluated by [facility] provider, last seen in 2021 -Evaluated by rug underlay machine operator, and recommended to wear comfortable shoes -Tried and completed PT. -Encouraged to follow instructions by orthopedist, vascular specialist, and rug underlay machine operator -Advised to reschedule appt with orthopedist and encouraged to contact specialists if pt is still having problems -evaluate with MRI Overactive bladder 06/27/2022 Assessment & Plan (12/25/2023 4:01 PM EDT): -s/p pelvic organ prolapse organ repair twice, most recently in Jun 2021 with midurethral sling -pt was following with [facility] uroGYN, last seen on 08/28/23, no UTI since surgery and new regimen -Pt is following w/ [facility] Urologist, recently seen on 09/20/23 -continue current medications, Gemtesa and vaginal estrogen Assessment & Plan (04/17/2023 11:37 AM EST): -s/p pelvic organ prolapse organ repair twice, most recently in Jun 2021 with midurethral sling -pt was following with [facility] uroGYN, last seen on 10/21/21, no UTI since surgery and new regimen -Pt is following w/ [facility] Urologist, recently seen on 03/22/23 -continue current medications including mirabegron, trospium and vaginal estrogen Assessment & Plan (12/06/2022 10:32 AM EDT): -s/p pelvic organ prolapse organ repair twice, most recently in Jun 2021 with midurethral sling -pt has been following with uroGYN, most recently on 10/21/21, no UTI since surgery and new regimen -Pt is following w/ Urologist, recently seen on 03/24/22 -continue current medications including mirabegron, trospium and vaginal estrogen Assessment & Plan (2022 9:46 AM EST): -s/p pelvic organ prolapse organ repair twice, most recently in Jun 2021 with midurethral sling -pt has been following with uroGYN, most recently on 10/21/21, no UTI since surgery and new regimen -Pt is following w/ Urologist, recently seen on 03/24/22 -continue current medications including mirabegron, trospium and vaginal estrogen Thyroid nodule 06/27/2022 Assessment & Plan (12/06/2022 10:36 AM EDT): -s/p biospy on 09/10/21 which showed atpia of undetermine significance -normal thyroid fxn test -US on 08/16/22 showed stable nodule Assessment & Plan (10/02/2022 6:45 PM EDT): -s/p biospy on 09/10/21 which showed atpia of undetermine significance -normal thyroid fxn test -US on 08/16/22 showed stable nodule Assessment & Plan (06/27/2022 5:56 AM EST): -s/p biospy on 09/10/21 which showed atpia of undetermine significance -normal thyroid fxn test -will check with surgeon for next steps -if she does not have f/u, will refer her to oil sales and service rep for consultation Right leg swelling 09/07/2021 Assessment & Plan (12/20/2023 11:06 AM EDT): - dowel pin worker' impression is lymphedema - pain may be due to musculoskeletal pathology - currently using bumetanide 0.5 mg daily Assessment & Plan (08/11/2023 10:04 AM EDT): - dowel pin worker' impression is lymphedema - pain may be due to musculoskeletal pathology - currently using bumetanide 0.5 mg daily Assessment & Plan (04/17/2023 11:38 AM EST): - dowel pin worker' impression is lymphedema - pain may be due to musculoskeletal pathology - currently using bumetanide 0.5 mg daily Assessment & Plan (12/06/2022 10:34 AM EDT): -initiallly started bumetanide for prn edema - currently using bumetanide 0.5 mg daily Assessment & Plan (10/02/2022 6:36 PM EDT): -will prescribe bumetanide 0.5 mg daily for edema -it is planned to be short-term Bilateral carotid artery stenosis 06/06/2020 Assessment & Plan (06/26/2024 12:16 PM EST): - carotid US in 2018 no significant stenosis Assessment & Plan (12/25/2023 3:58 PM EDT): - carotid US in 2018 no significant stenosis Assessment & Plan (12/06/2022 10:31 AM EDT): - carotid US in 2018 no significant stenosis Assessment & Plan (2022 5:52 PM EST): - carotid US in 2018 no significant stenosis Varicose veins with pain 01/18/2018 Venous insufficiency of leg 08/26/2016 Assessment & Plan (06/26/2024 9:00 AM EST): -Bilateral, more symptomatic on right than left -Evaluated by [facility] Vascular service -Evaluated by [facility] Vascular service, last seen on 09/07/23. No significant venous reflux. Dx lymphedema. Continue conservative management with compression stockings Treatment Hx: -leg elevation; Unna boots; compression stocking -Microphlebectomy of right leg in 2018 -03/18/22 endovenous radiofrequency ablation of right great saphenous vein -Continue compression stocking, leg elevation Assessment & Plan (12/20/2023 12:06 PM EDT): -Bilateral, more symptomatic on right than left -Evaluated by [facility] Vascular service -Evaluated by [facility] Vascular service, last seen on 09/07/23. No significant venous reflux. Dx lymphedema. Continue conservative management with compression stockings Treatment Hx: -leg elevation; Unna boots; compression stocking -Microphlebectomy of right leg in 2018 -03/18/22 endovenous radiofrequency ablation of right great saphenous vein -Continue compression stocking, leg elevation Assessment & Plan (08/22/2023 5:09 AM EDT): -Bilateral, more symptomatic on right than left -Evaluated by [facility] Vascular service -Evaluated by [facility] Vascular service, last seen on 03/07/23. No significant venous reflux. Dx lymphedema. Continue conservative management. Treatment Hx: -leg elevation; Unna boots; compression stocking -Microphlebectomy of right leg in 2018 -03/18/22 endovenous radiofrequency ablation of right great saphenous vein -Continue compression stocking, leg elevation Assessment & Plan (04/17/2023 11:31 AM EST): -Bilateral, more symptomatic on right than left -Evaluated by [facility] Vascular service -Evaluated by [facility] Vascular service, last seen on 03/07/23. No significant venous reflux. Dx lymphedema. Continue conservative management. Treatment Hx: -leg elevation; Unna boots; compression stocking -Microphlebectomy of right leg in 2017 -03/18/22 endovenous radiofrequency ablation of right great saphenous vein -Continue compression stocking, leg elevation Assessment & Plan (12/06/2022 10:31 AM EDT): -Bilateral, more symptomatic on right than left -Followed by [facility] Vascular service -Recently seen by [facility] Vascular service, 11/15/22. Advised to continue current treatment. No additional evalaution or treatment suggested. -No change in treatment plan. Treatment Hx: -leg elevation; Unna boots; compression stocking -Microphlebectomy of right leg in 2017 -03/18/22 endovenous radiofrequency ablation of right great saphenous vein -Continue compression stocking, leg elevation Assessment & Plan (09/22/2022 12:40 PM EDT): -Bilateral, more symptomatic on right than left -Followed by [facility] Vascular service, last seen by Dr. Lorenzo on 04/08/22 Treatment Hx: -leg elevation; Unna boots; compression stocking -Microphlebectomy of right leg in 2017 -03/18/22 endovenous radiofrequency ablation of right great saphenous vein -Continue compression stocking, leg elevation Assessment & Plan (06/27/2022 6:03 AM EST): -Bilateral, more symptomatic on right than left -Followed by [facility] Vascular service, last seen by Dr. Lorenzo on 04/08/22 Treatment Hx: -leg elevation; Unna boots; compression stocking -Microphlebectomy of right leg in 2018 -03/18/22 endovenous radiofrequency ablation of right great saphenous vein -Continue compression stocking, leg elevation Chronic low back pain 09/15/2015 Assessment & Plan (12/06/2022 10:37 AM EDT): - Pt would like to try physical therapy again - will request home PT H/O: hysterectomy 09/15/2015 Urinary incontinence 09/15/2015 Assessment & Plan (12/20/2023 11:06 AM EDT): - mixed - previously followed by [facility] Urogyn. S/p prolapse repair - currently following with [facility] Uro for overactive bladder - pt needs incontinence supply Assessment & Plan (04/17/2023 11:35 AM EST): - mixed - previously followed by [facility] Urogyn. S/p prolapse repair - currently following with [facility] Uro for overactive bladder - pt needs incontinence supply Assessment & Plan (12/06/2022 10:32 AM EDT): - mixed - pt needs incontinence supply Gout 06/18/2015 Assessment & Plan (06/27/2024 12:27 AM EST): - Ordered Uric acid 06/26/24 Assessment & Plan (12/25/2023 4:03 PM EDT): Continue Allopurinol 100mg daily Last Uric acid 3.6 mg/dl Low purine diet as tolerated Assessment & Plan (08/22/2023 5:13 AM EDT): Continue Allopurinol 100mg daily Last Uric acid 3.6 mg/dl Low purine diet as tolerated Assessment & Plan (12/06/2022 10:37 AM EDT): Continue Allopurinol 100mg daily Assessment & Plan (2022 10:12 AM EST): Continue Allopurinol 100mg daily Chronic ischemic heart disease 02/10/2015 Assessment & Plan (06/26/2024 9:00 AM EST): - previously followed by supervisor public message service - mildly abnormal stress test in 2012, inferior wall ischemia - continue rosuvastatin, ASA, and metoprolol - continue isosorbide for chest pain - continue working on lifestyle modification Assessment & Plan (12/20/2023 11:05 AM EDT): - previously followed by supervisor public message service - mildly abnormal stress test in 2012, inferior wall ischemia - continue rosuvastatin, ASA, and metoprolol - continue isosorbide for chest pain - continue working on lifestyle modification Assessment & Plan (04/17/2023 11:34 AM EST): - previously followed by supervisor public message service - mildly abnormal stress test in 2012, inferior wall ischemia - continue rosuvastatin, ASA, and metoprolol - continue isosorbide for chest pain - continue working on lifestyle modification Assessment & Plan (12/06/2022 10:31 AM EDT): - previously followed by supervisor public message service - mildly abnormal stress test in 2012, inferior wall ischemia - continue rosuvastatin, ASA, and metoprolol - continue isosorbide for chest pain - continue working on lifestyle modification Assessment & Plan (2022 5:50 PM EST): - previously followed by supervisor public message service - mildly abnormal stress test in 2012, inferior wall ischemia - continue rosuvastatin, ASA, and metoprolol - continue isosorbide for chest pain - continue working on lifestyle modification Essential hypertension 02/10/2015 Assessment & Plan (06/27/2024 12:26 AM EST): -Goal BP< 130/80 per ACC/AHA guideline -continue working on lifestyle modification -continue monitoring BP at home -continue metoprolol succinate 25 mg daily -continue isosorbide 60 mg daily -continue bumetanide 0.5 mg daily for mainly leg swelling -continue checking home BP and HR - Ordered Comprehensive Metabolic Panel 06/26/24 - Ordered Albumin, Random Urine W/Creatinine 06/26/24 Assessment & Plan (04/12/2024 1:02 PM EST): -Goal BP< 130/80 per ACC/AHA guideline -continue working on lifestyle modification -continue monitoring BP at home -continue metoprolol succinate 25 mg daily -continue isosorbide 60 mg daily -continue bumetanide 0.5 mg daily for mainly leg swelling -continue checking home BP and HR Assessment & Plan (12/25/2023 3:59 PM EDT): -Goal BP < 150/90 per JNC-8, < 130/80 per ACC/AHA guideline BP slightly elevated today -continue working on lifestyle modification -continue monitoring BP at home -continue metoprolol succinate 25 mg daily -continue isosorbide 60 mg daily -continue bumetanide 0.5 mg daily for mainly leg swelling -continue checking home BP and HR -f/u in 3-6 months, or sooner if any problem arises Assessment & Plan (08/11/2023 10:03 AM EDT): -Goal BP < 150/90 per JNC-8, < 130/80 per ACC/AHA guideline BP within acceptable range today -continue working on lifestyle modification -continue monitoring BP at home -continue metoprolol succinate 25 mg daily -continue isosorbide 60 mg daily -continue bumetanide 0.5 mg daily for mainly leg swelling -continue checking home BP and HR -f/u in 3-6 months, or sooner if any problem arises Assessment & Plan (04/17/2023 11:34 AM EST): -Goal BP < 150/90 per JNC-8, < 130/80 per ACC/AHA guideline BP within acceptable range today -continue working on lifestyle modification -continue monitoring BP at home -continue metoprolol succinate 25 mg daily -continue isosorbide 60 mg daily -continue bumetanide 0.5 mg daily for mainly leg swelling -continue checking home BP and HR -f/u in 3-6 months, or sooner if any problem arises Assessment & Plan (12/06/2022 10:31 AM EDT): -Goal BP < 150/90 per JNC-8, < 130/80 per ACC/AHA guideline BP within acceptable range today -continue working on lifestyle modification -continue monitoring BP at home -continue metoprolol succinate 25 mg daily -continue isosorbide 60 mg daily -add bumetanide 0.5 mg daily for mainly leg swelling -continue checking home BP and HR -f/u in 3-6 months, or sooner if any problem arises Assessment & Plan (10/02/2022 6:35 PM EDT): -Goal BP < 150/90 per JNC-8, < 130/80 per ACC/AHA guideline BP within acceptable range today -continue working on lifestyle modification -continue monitoring BP at home -continue metoprolol succinate 25 mg daily -continue isosorbide 60 mg daily -add bumetanide 0.5 mg daily for mainly leg swelling -continue checking home BP and HR -f/u in 3-6 months, or sooner if any problem arises Assessment & Plan (2022 9:57 AM EST): -Goal BP < 150/90 per JNC-8, < 130/80 per ACC/AHA guideline BP not at goal today, suboptimal at home -continue working on lifestyle modification -continue monitoring BP at home -continue metoprolol succinate 25 mg daily -continue isosorbide 60 mg daily -continue checking home BP and HR -f/u in 3-6 months, or sooner if any problem arises -if persistently elevated BP at the clinic or home BP is elevated, will add additional medication Impaired fasting glucose 03/08/2012 Assessment & Plan (06/27/2024 12:27 AM EST): - most recent A1C 5.3%, significantly improved - continue lifestyle modifications - Ordered Hemoglobin A1c 06/26/24 Assessment & Plan (12/25/2023 4:02 PM EDT): - most recent A1C 5.3%, significantly improved - continue lifestyle modifications Assessment & Plan (08/22/2023 5:11 AM EDT): - most recent A1C 5.3%, significantly improved - continue lifestyle modifications Obesity 11/18/2001 Assessment & Plan (08/22/2023 5:12 AM EDT): - lifestyle modifications Resolved Problems Problem Noted Date Diagnosed Date Resolved Date Acute left-sided low back pa in without sciatica 11/30/2022 04/11/2023 Cellulitis of right leg 09/22/2022 08/0 05/2022 Assessment & Plan (10/02/2022 6:40 PM EDT): Seen in ED on 09/16/22 -was prescribed Doxycycline -advised to complete treatment and follow up with ID specialist as scheduled Encounters Date Type Department Care Team Description 08/09/2024 Refill [facility] [address] [place] [address] Katelin Shaw MD 06/26/2024 11:30 AM EST Office Visit [facility] [address] [place] [address] Katelin Shaw MD Essential hypertension (Primary Dx); Venous insufficiency of leg; Chronic ischemic heart disease; Bilateral carotid artery stenosis; Impaired fasting glucose; Cellulitis of right lower extremity; Lymphedema; Dyslipidemia; Acute pain of right shoulder; Gout, unspecified cause, unspecified chronicity, unspecified site; Vitamin deficiency; Vitamin D deficiency; Dietary counseling; Exercise counseling; Class 2 severe obesity due to excess calories with serious comorbidity and body mass index (BMI) of 35.0 to 35.9 in adult ([facility]) 06/26/2024 Travel 06/20/2024 Telephone [facility] [address], [place] [phone] Katelin Shaw MD Chart Prep 06/13/2024 Refill [facility] [address] [place], [place] [phone] Katelin Shaw MD Vitamin D deficiency from Last 3 Months Immunizations Name Administration Dates Next Due Influenza High-dose Quadriva lent Preservative Free 01/31/2022,02/13/2021,01/31/2020 Influenza Quadrivalent Adjuvanted 01/26/2023 Influenza injectable quadriv alent IIV4 with preservative 01/23/2016,01/24/2015 Influenza, High Dose Seasona l, Preservative Free 01/17/2019,02/15/2018,02/04/2017 Influenza, IIV3, injectable 02/07/2014,0 01/29/2011,03/13/2010,02/28,03/21/2006 Influenza, Split (incl. chyna fied surface antigen) 02/07/2013,03/08/2012 Influenza, trivalent, adjuvanted 01/25/2024 Pfizer Covid-19 Vaccine 12+ 08/11/2023 Pneumococcal Conjugate PCV 13 02/04/2017 Pneumococcal Polysaccharide PPSV23 01/17/2019,,01/12/2006 Pneumococcal, Unspecified 01/12/2006 TD (adult), 2 Lf tetanus tox oid, preservative free, adsorbed 12/18/2007,11/13/1996 Tdap 12/17/2021,06/25/2011 Zoster, Recombinant 02/18/2022,12/17/2021,2020 Zoster, live 06/24/2014 Social History Tobacco Use Types Packs/Day Years Used Date Smoking Tobacco: Never Passive Smoke Exposure: Never Smokeless Tobacco: Never Tobacco Cessation:Counseling Given: Not Answered Alcohol Use Standard Drinks/Week Comments Defer 0 (1 standard drink = 0.6 oz pur e alcohol) Depression Answer Date Recorded Patient Health Questionnaire-9 Score 0 08/11/2023 Patient Health Questionnaire-9 Score 0 08/11/2023 Last PHQ-9: Questionnaire Data Not on file 0 08/11/2023 Housing Stability Answer Date Recorded What is your housing situation today? I have yesenia frank 12/20/[address] you li ve. Do you have problems with any of the following? None of the above 12/20/2023 Food Insecurity Answer Date Recorded Within the past 12 months, y ou worried that your food would run out before you got money to buy more: Never True 12/20/2023 Within the past 12 months,th e food you bought just didn't last and you didn't have enough money to get more: Never True Transportation Answer Date Recorded In the past 12 months, has l ack of transportation kept you from medical appts, meetings, work or from getting things needed for daily living? Yes, it has kept me from medical appointments or getting medications. 12/20/2023 Utilities Answer Date Recorded In the past 12 months, has t he electric, gas, oil or water company threatened to shut off services in your home? No 12/20/2023 Depression Answer Date Recorded Patient Health Questionnaire-2 Score 3 04/12/2024 Internet Access Answer Date Recorded Internet Access Q1 Yes 12/30/2023 Internet Access Q2 Not on file 12/30/2023 Comments Unknown Sex and Gender Information Value Date Recorded Sex Assigned at Female 03/01/2022 10:14 AM EDT Legal Sex Female 10:14 AM EDT Gender Identity Female 03/01/2022 10:14 AM EDT Sexual Orientation Straight 03/01/2022 10 :14 AM EDT Last Filed Vital Signs Vital Sign Reading Time Taken Comments Blood Pressure 136/72 06/26/2024 11:37 AM EST Pulse 70 06/26/2024 11:37 AM EST Temperature 36.2 ??C (97.1 ??F) 06/26/2024 11:[address] Respiratory Rate 23 06/26/2024 11:37 AM EST Oxygen Saturation 97% 06/26/2024 11:37 AM EST Inhaled Oxygen Concentration - - Weight 78.1 kg (172 lb 3.2 oz) 06/26/2024 11:37 AM EST Height 154.9 cm (5' 1 ) 12/20/2023 10:47 AM EDT Body Mass Index 32.54 12/20/2023 10:47 AM EDT Plan of Treatment Health Maintenance Due Date Last Done Comments CT Colonography 1950 Colonoscopy 1950 Dental X-Ray: Bitewings 1950 FIT 1950 FOBT 1950 Sigmoidoscopy 1950 Hepatitis C Screening 1969 RSV Patients and Patients Aged 60 years or older (1 - Risk 60-74 years 1-dose series) 2011 Dental Prophylaxis 04/07/2014 10/05/2013 Dental Oral Exam 06/24/2023 12/21/2022, 01/05/2013 COVID-19 Vaccine ( season) 2024 08/11/2023, 03/30/2022, 02/23/2021, Additional history exists SDOH Screening 12/19/2024 12/20/2023 Colorectal Cancer Screening 01/06/2025 FIT DNA/Cologuard 01/06/2025 01/06/2022 Alcohol/Substance Use Screening 04/12/2025 04/12/2024 Depression Screening 04/12/2025 04/12/2024, 08/11/19 Tobacco Screening 07/03/2025 07/03/2024 Dental X-Ray: Full Mouth 12/22/2025 12/21/2022 Mammogram 03/28/2026 03/28/2024, 03/02, 03/09/2022, Additional history exists Lipid Panel 07/21/2028 07/22/2023, 07/01, 03/06/2021, Additional history exists DTaP/Tdap/Td Vaccines (3 - Td or Tdap) 12/18/2031 12/17/2021, 06/25/2011, 12/18/2007, Additional history exists Pneumococcal Vaccine: 50+ Years Completed 01/17/2019, 02/04/2017, 08/18/2011, Additional history exists Zoster Vaccines Completed 02/18/2022, 11/30, 02/23/2021, Additional history exists Influenza Vaccine Completed 01/25/2024, , 01/31/2022, Additional history exists HIB Vaccines Aged Out No longer eligi ble based on patient's age to complete this topic HPV Vaccines Aged Out No longer eligi ble based on patient's age to complete this topic Hepatitis A Vaccines Aged Out No long er eligible based on patient's age to complete this topic Hepatitis B Vaccines Aged Out No long er eligible based on patient's age to complete this topic IPV Vaccines Aged Out No longer eligi ble based on patient's age to complete this topic Meningococcal Vaccine Aged Out No mathew norberto eligible based on patient's age to complete this topic RSV under 20 months Aged Out No longe r eligible based on patient's age to complete this topic Rotavirus Vaccines Aged Out No longer eligible based on patient's age to complete this topic Procedures Procedure Name Priority Date/Time Associated Diagnosis Comments BI MAMMOGRAM SCREENING TOMOSYNTHESIS BILATERAL Routine 03/28/2024 9:45 AM EST LIPID PANEL WITH REFLEX TO DIRECT LDL Routine 07/22/2023 9:40 AM EDT Essential hypertension PANORAMIC RADIOGRAPHIC IMAGE Routine 12/21/2022 10:00 AM EDT PERIODIC ORAL EVALUATION - ESTABLISHED PATIENT Routine 12/21/2022 10:00 AM EDT PROPHYLAXIS - ADULT Routine 10/05/2013 1 2:00 AM EDT from Last 3 Months or Most Recently Relevant to Health Maintenance Results * BI Mammogram Screening Tomosynthesis Bilateral (03/28/2024 9:45 AM EST) Anatomical Region Laterality Modality Breast Bilateral Mammography 03/28/2024 9:45 AM EST Narrative 04/06/2024 9:14 AM EST ? [facility] ? [address] ?[place] [address] ? Mammography Report ? Signed ? Patient: Martinez,Zilma ?MR#: [id number] ? : 1950 ?Acct:[id number] ? Age/Sex: 73 / F ?ADM Date: 11/27/24 ? Loc: HO.MAMMO ? Attending Dr: Katelin Shaw MD ? Ordering Physician: Katelin Shaw MD ?Results: 1Negative ? Date of Service: 03/28/24 ?Follow Up: 1 Year From Orig ?? inal Mammogram ? Procedure(s): MM tomosynthesis screening BI ?? Accession Number(s): [id number] ? cc: Katelin Shaw MD ? EXAMINATION: ?? MM SCREENING DIGITAL BREAST TOMOSYNTHESIS, BILATERAL ? CLINICAL INFORMATION: ? Screening. Asymptomatic. ? COMPARISON: ?? Mammography: Comparison is made with available priors ? TECHNIQUE: ?? Digital breast mammography with tomosynthesis is performed in both the ?? craniocaudal and mediolateral oblique views along with computer-aided ?? detection (CAD). ? FINDINGS: ?? There are scattered areas of fibroglandular density (ACR BI-RADS breast ?? composition Category b). ? There are no significant masses, abnormal calcifications, or other ?? abnormalities. ? MM/MM tomosynthesis screening BI ?? IMPRESSION: ?? No mammographic evidence of malignancy. ? ASSESSMENT: ? BI-RADS BI-RADS 1 - Negative ? RECOMMENDATION: ?? Routine annual mammography screening. ? 1 year F/U ? This examination should not preclude the clinical evaluation of a ?? suspicious palpable abnormality. ? This patient's information was entered into a reminder system with a ?? target due date for their next mammogram. ? Electronically signed by: ??Polly Connelly DO ??04/06/2024 09:11 AM EST ? Dictated By: ?Godwin,Polly DO ? Signed By: ?<Electronically signed by Polly Connelly, DO in OV> ? 04/06/24 0911 ? DD/ 0945 ? TD/TT: 03/28/24 1000 ? Electric Razor Assembler: ? Procedure Note Chriss Ballard - 04/06/2024 [place] [facility] [address] [place] [address] Mammography Report Signed Patient: JuanIvelisse#: [id number] : 2Acct:[id number] Age/Sex: 73 / FADM Date: 03/28/24 Loc: HO.MAMMO Attending Dr: Katelin Shaw MD Ordering Physician: Katelin Shaw MDResults: 1Negative Date of Service: 03/28/24Follow Up: 1 Year From Orig ina Mammogram Procedure(s): MM tomosynthesis screening BI Accession Number(s): [id number] cc: Katelin Shaw MD EXAMINATION: MM SCREENING DIGITAL BREAST TOMOSYNTHESIS, BILATERAL CLINICAL INFORMATION: Screening. Asymptomatic. COMPARISON: Mammography: Comparison is made with available priors TECHNIQUE: Digital breast mammography with tomosynthesis is performed in both the craniocaudal and mediolateral oblique views along with computer-aided detection (CAD). FINDINGS: There are scattered areas of fibroglandular density (ACR BI-RADS breast composition Category b). There are no significant masses, abnormal calcifications, or other abnormalities. MM/MM tomosynthesis screening BI IMPRESSION: No mammographic evidence of malignancy. ASSESSMENT: BI-RADS BI-RADS 1 - Negative RECOMMENDATION: Routine annual mammography screening. 1 year F/U This examination should not preclude the clinical evaluation of a suspicious palpable abnormality. This patient's information was entered into a reminder system with a target due date for their next mammogram. Electronically signed by: Polly Connelly DO 04/06/2024 09:11 AM EST Dictated By: Polly Connelly DO Signed By: <Electronically signed by Polly Connelly DO in OV> 04/06/24 0911 DD/ 0945 TD/TT: 03/28/24 1000 Electric Razor Assembler: us Katelin Shaw MD IMG BI PROCEDURES Edited Result - Final * Lipid Panel with Reflex to Direct LDL (07/22/2023 9:40 AM EDT) Triglycerides 123 <150 mg/dL [facility] Comment:Desirable Triglyceri de: less than 150 mg/dLBorderline High Triglyceride 150-199 mg/dLHigh Triglyceride: 200-499 mg/dLVery High Triglyceride: greater than or equal to 5OO mg/dL Cholesterol 116 <200 mg/dL [facility] Comment:Desirable Cholestero l: less than 200 mg/dLBorderline High Cholesterol: 200-239 mg/dLHigh Cholesterol: greater than 239 mg/dL LDL Cholesterol Calculated 48 <100 mg/dL [facility] Comment:Desirable LDL: less than 100 mg/dLNear Optimal/Above Optimal LDL: 110- 129 mg/dLBorderline High LDL: 130-159 mg/dLHigh LDL: 160-189 mg/dLVery High LDL: greater than or equal to 190 mg/dL HDL Cholesterol 44 >40 mg/dL [facility] Comment:Desirable HDL: great er than 40 mg/dL Note: This HDL assay may give artificially low results in patients with liver disease. Blood 07/22/2023 9:40 AM EDT 07/22/2023 11:14 AM EDT us Katelin Shaw MD LAB BLOOD ORDERABLES Final Resul t [facility] [address] [place] [address] [phone] from Last 3 Months or Most Recently Relevant to Health Maintenance Insurance [address] [place] [id number] [facility] [employer] [employer] (HMO D-SNP) [place]UT[place] RANGEL [id number] [place] [phone] DENTAL - [facility] [address] [place] [phone] Care Teams Sr. Director Product Management Relationship Specialty Start Date End Date Katelin Shaw MD [address] [place] [phone] PCP - General Family Medicine 01/05/13
--- OUTSIDE RECORDS SUMMARY | 2024-08-28 12:22 | XMS_ITS | Encounter Summary ---
Author Organization [facility] Address [address] [place] [address] Care Team Providers Care Graduate Teacher Education Name Role Phone Katelin Shaw Primary Care Provider Bhavesh fowler Encounter Details Date Type Department Care Team Description 03/10/2018 Transfer Records Medical Records [address] [place] [address] Abstract, Provider Social History Tobacco Use Types Packs/Day Years Used Date Smoking Tobacco: Never Smokeless Tobacco: Never Alcohol Use Standard Drinks/Week Comments No 0 (1 standard drink = 0.6 oz pur e alcohol) Sex Assigned at Date Recorded Not on file Job Start Date Occupation Industry Not on file Not on file Not on file documented as of this encounter Plan of Treatment Not on file documented as of this encounter Visit Diagnoses Not on filedocumented in this encounter Care Teams Graduate Teacher Education Relationship Specialty Start Date End Date Katelin Shaw PCP - General Family Practice 01/08/14 documented as of this encounter
--- OUTSIDE RECORDS SUMMARY | 2024-08-28 12:22 | XMS_ITS | Encounter Summary ---
Author Organization [facility] Address [address] [place] [address] Care Team Providers Care Trackwalker Name Role Phone Katelin Shaw Primary Care Provider Bhavesh fowler Encounter Details Date Type Department Care Team Description 08/17/2022 Telephone General Surgery - [place] [address] [phone] Tim Hodges MD [address] [facility] [address] [place] [address] Social History Tobacco Use Types Packs/Day Years Used Date Smoking Tobacco: Never Smokeless Tobacco: Never Alcohol Use Standard Drinks/Week Comments No 0 (1 standard drink = 0.6 oz pur e alcohol) Sex Assigned at Date Recorded Not on file Job Start Date Occupation Industry Not on file Not on file Not on file documented as of this encounter Miscellaneous Notes * Telephone Encounter - Josi Love - 08/17/2022 9:12 AM EDT Called patient and results were given. * Telephone Encounter - Josi Love - 08/17/2022 9:12 AM EDT ----- Message from Tim Hodges MD sent at 08/17/2022 8:51 AM EDT ----- Please inform the patient that the thyroid nodules appear stable. Plan to repeat the ultrasound follow-up surveillance in 1 year. Thank you documented in this encounter Plan of Treatment Not on file documented as of this encounter Visit Diagnoses Not on filedocumented in this encounter Care Teams Trackwalker Relationship Specialty Start Date End Date Katelin Shaw PCP - General Family Practice 01/08/14 documented as of this encounter
--- OUTSIDE RECORDS SUMMARY | 2024-08-28 12:22 | XMS_ITS | Encounter Summary ---
Author Organization [facility] Address [address] [place] [address] Care Team Providers Care Public Health Staff Nurse Name Role Phone Katelin Shaw Primary Care Provider Unavailedilma e Reason for Visit * Reason Onset Date Comments APPOINTMENT 08/12/2021 Encounter Details Date Type Department Care Team Description 08/12/2021 Telephone General Surgery - [place] 175 [facility] [address] [place] [phone] Tim Hodges MD [address] [facility] [address] [place], [place] [phone] APPOINTMENT Social History Tobacco Use Types Packs/Day Years Used Date Smoking Tobacco: Never Smokeless Tobacco: Never Alcohol Use Standard Drinks/Week Comments No 0 (1 standard drink = 0.6 oz pur e alcohol) Sex Assigned at Date Recorded Not on file Job Start Date Occupation Industry Not on file Not on file Not on file COVID-19 Exposure Response Date Recorded In the last 10 days, have yo u been in contact with someone who was confirmed or suspected to have Coronavirus/COVID-19? No / Unsure 07/22/2021 1:59 PM EDT documented as of this encounter Miscellaneous Notes * Telephone Encounter - Sera Salinas - 08/12/2021 3:17 PM EDT Pt is scheduled with [facility] for thyroid on 08/14 at 3:30pm at [facility]. Pt is aware of appt. [facility] said because there is a palpable fullness; they need a new order that dictates this line: On exam there is a palpable fullness in the left central neck which moves with deglutition consistent with thyroid etiology. Please and thanks! documented in this encounter Plan of Treatment Not on file documented as of this encounter Visit Diagnoses Not on filedocumented in this encounter Care Teams Public Health Staff Nurse Relationship Specialty Start Date End Date Katelin Shaw PCP - General Family Practice 01/08/14 documented as of this encounter
--- OUTSIDE RECORDS SUMMARY | 2024-08-28 12:22 | XMS_ITS | Data Portability ---
Author Organization [employer] [facility], [place] in - [address] [place] [phone] Care Team Providers Care Bronzer Name Role Phone [facility] Primary Care Provider [phone] HIM CCA OTHER Assessment Encounter Date Assessment Date Assessment LastModified by Organization Details LastModified Time 03/29/2024 03/29/2024 I have reviewed and agree with the Assessment and Plan as documented by the Fitter Placer. I provided real-time medical direction via phone for this encounter, and was available for additional phone based assistance as needed. I would add/emphasize: Patient w/ hx of chronic LE edema and frequent superinfections is seen for pain, swelling, purulent drainage and erythema to R ankle where large ulcer is present. Recently completed course of bactrim w/ no sig improvement. AVSS afebrile and well appearing per report. Clinical images suggestive of possible surrounding cellulitis. WIll trial longer course of doxycycline. Patient to present to the ED for further eval if 48hrs of antibiotics have not stopped progression. REd flags for urgent presentation discussed. Patient would benefit from close PCP follow up. jose luisfather Not available 03/30/2024 09:30:10 Plan of Treatment Reminders Order Date Submit Date Provider Last Modified By Organization Details Last Modified Time Details Appointments None recorded. Lab None recorded. Referral None recorded. Procedures None recorded. Surgeries None recorded. Imaging None recorded. Medication Orders doxycycli ne hyclate 100 mg tablet 2023 024 [facility], [address] [place] [address], [id number], 20:12:38 doxycycli ne hyclate 100 mg capsule 2023 024 [facility], [address] [place] [address], [id number], 4 07:34:34 Patient TargetsNo targets recorded. Patient InstructionsNo instructions recorded. Reason for Referral None Reported. Medical Equipment None Reported. Medications Name Sig Start Date Stop Date Status Note LastModified by Organization Details LastModified Time medbox status USE DIRECTED active Not Available Not Available No t Available doxycycline hyclate 100 mg capsule TAKE 1 CAPSULE BY MOUTH TWICE DAILY FOR 10 DAYS active Not Available Not Available No t Available bacitracin 500 unit/gram topical ointment APPLY TOPICALLY TO THE AFFECTED AREA(S) TWICE DAILY active Not Available Not Available No t Available allopurinol 100 mg tablet TAKE 1 TABLET BY MOUTH EVERY MORNING active Not Available Not Available No t Available sulfamethoxaz ole 800 mg-trimethopr im 160 mg tablet TAKE 1 TABLET BY MOUTH TWICE DAILY FOR FOURTEEN DAYS active Not Available Not Available No t Available aspirin 81 mg tablet,delaye d release TAKE 1 TABLET BY MOUTH EVERY MORNING active Not Available Not Available No t Available acetaminophen 500 mg tablet TAKE 1 TO 2 TABLETS BY MOUTH EVERY 8 HOURS NEEDED. NO MORE THAN 6 TABLETS PER 24 HOURS active Not Available Not Available No t Available isosorbide mononitrate ER 60 mg tablet,extend ed release 24 hr TAKE 1 TABLET BY MOUTH EVERY MORNING active Not Available Not Available No t Available terbinafine HCl 250 mg tablet TAKE 1 TABLET BY MOUTH EVERY DAY FOR FOURTEEN DAYS active Not Available Not Available No t Available amlodipine 10 mg tablet TAKE 1 TABLET BY MOUTH EVERY MORNING active Not Available Not Available No t Available bumetanide 0.5 mg tablet TAKE 1 TABLET BY MOUTH EVERY MORNING active Not Available Not Available No t Available betamethasone , augmented 0.05 % topical ointment APPLY TOPICALLY TO THE AFFECTED AREA(S) TWICE DAILY DIRECTED active Not Available Not Available No t Available sertraline 25 mg tablet TAKE 1 TABLET BY MOUTH EVERY MORNING WITH 50 TABLET active Not Available Not Available No t Available metoprolol succinate ER 25 mg tablet,extend ed release 24 hr TAKE 1 TABLET BY MOUTH EVERY MORNING active Not Available Not Available No t Available sertraline 50 mg tablet TAKE 1 TABLET BY MOUTH EVERY MORNING WITH 25 MG TABLET active Not Available Not Available No t Available amoxicillin 875 mg-potassium clavulanate 125 mg tablet active Not Available Not Availabl e Not Available Vitamin D3 25 mcg (1,000 unit) capsule TAKE 1 CAPSULE BY MOUTH EVERY MORNING active Not Available Not Available No t Available rosuvastatin 5 mg tablet TAKE 1 TABLET BY MOUTH AT BEDTIME active Not Available Not Available No t Available diclofenac 1 % topical gel APPLY 2 GRAMS TOPICALLY TO AFFECTED AREA(S) ONE OR TWO TIMES DAILY NEEDED FOR PAIN active Not Available Not Available No t Available Gemtesa 75 mg tablet TAKE 1 TABLET BY MOUTH EVERY MORNING active Not Available Not Available No t Available omega-3 300 mg-dha 120 mg-epa 180 mg-fish oil 1,000 mg capsule TAKE 1 CAPSULE BY MOUTH EVERY MORNING active Not Available Not Available No t Available Vitals Date Recorded Body temperature Body weight Respiratory rate Body height Oxygen saturation Oxygen saturation in Arterial blood by Pulse oximetry Heart rate Systolic blood pressure Diastolic blood pressure Provider Name and Address Organization Details Last Updated DateTime 4 98.4 [degF] 69478.4 g 14 /min 157.48 cm 97 % 97 % 72 /min 128 mm[Hg] 80 mm[Hg] Not Available [facility] - production 20:11:13 Social History None recorded. Functional Status None recorded. Mental Status None recorded. Family History Nothing Reported. Medical History No medical history recorded. Gynecological HistoryNo gynecological history recorded. Obstetrics History GPAL:G 0 P 0 0 0 0 Past Encounters Encounter ID Performer Location Encounter Start Date Encounter Closed Date Diagnosis/Indication Diagnosis SNOMED-CT Code Diagnosis ICD10 Code Diagnosis Note [id number] Antione Johns MD [facility] - [facility] [address] [place] [phone] 03/29/2024 20:11:04 03/30/2024 15:33:48 Cellulitis of lower limb 514706617 L03.119 Health Concerns Section Related Observation LastModified by Organization Detai ls LastModified Time None Recorded Concern Status LastModified by Organization Details LastModified Time None Recorded Advance Directives Directive None Recorded Payers Encounter Date Sequence Insurance Name Policy Number Policy Cooper Covered Member ID Cooper Member ID Guarantor Name 03/29/2024 1 [facility] - DOS ON OR AFTER 2022 - DUAL ELIGIBLE - USP OPTIONS AND ONE CARE (MEDICARE REPLACEMENT/ADV ANTAGE - HMO) Ariana Martinez [id number] Ariana Martinez Notes Date Note Type Note Provider Name and Address Organization Details Recorded Time 03/29/2024 text/html [facility] Nurse Triage Notes (Katrina Valadez): Reason For Request: Pt's daughter Akanksha reporting right leg pain>pain at baseline is normal but mbr expressing burning>daughter notes an ulcer on the leg that the pt has been taking antibiotics for, for about 3weeks Chief Complaints: Leg pain/swelling PMH: Gout, Hypertension Comments: Daughter calling to request visit for patient with increased right leg pain. Patient has leg pain at baseline but worse than usual. Difficulty standing/ambulating . Open area to outer aspect of RLE above ankle. Recently treated for cellulutis 3 weeks ago to the affected extremity. Finished course of Bactrim. Clear/yellow drainage currently. No obvious redness or swelling. Denies fever/chills. Rates pain 12/09. Took 2 Advil today at 11am. No falls or acute injuries recently. ................... ................... ................... ................... ................... ................... ................... ........ Fitter Placer Note From Quintin Juarez: Patient alert and oriented, strong language barrier most information through on scene demurrage clerk. Patient complains of right lower leg pain, for the last several years, most recently burning and pain increased two days ago. Patient has been treated with Bactrim for same with a seven day course starting 03/07/2024, patient reports no change of symptoms. Patient denies any other pain or complaints, denies nausea, vomiting, diarrhea, chest pain, weakness, dizziness, change in appetite, intake, or or elimination or any other pain or complaints.Patient pink warm dry secondary exam unremarkable. Right leg as in picture. Hot to touch weeping clear and yellow liquid. Good CSM in right leg. [facility] orders doxycycline 100 mg PO now and will call in more to patient? s local pharmacy. [facility] advises patient symptoms improve in three days to go to ED for evaluation and treatment. Administered doxycycline 100 mg PO without complication using the five rights. Red flags and patient education discussed wound care discussed. 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 ................... ................... ................... ................... ................... ................... ................... ........ [facility] Consulted: Antione Johns ................... ................... ................... ................... ................... ................... ................... ........ Disposition: Fulfilled Antione Johns MD [address] [facility],[address], [place], [phone], [employer] 03/30/2024 09:30:19 OBGyn Episode No OBEpisode recorded.
--- OUTSIDE RECORDS SUMMARY | 2024-08-28 12:23 | XMS_ITS | Encounter Summary ---
Author Organization [facility] Address [address] [place] [address] [address] [place] [address] Care Team Providers Care Shot Hole Shooter Name Role Phone Katelin Shaw MD Primary Care Provider [phone] Encounter Details Date Type Department Care Team (Late st Contact Info) Description 05/07/2022 Orders Only [facility] MED[facility]INE [address] [place] [address] Keli Rodriguez, RN [address] [place] [address] Social History Tobacco Use Types Packs/Day Years Used Date Smoking Tobacco: Never Assessed Comments Unknown Sex and Gender Information Value Date Recorded Sex Assigned at Female 03/01/2022 10:14 AM EDT Legal Sex Female 10:14 AM EDT Gender Identity Female 03/01/2022 10:14 AM EDT Sexual Orientation Straight 03/01/2022 10 :14 AM EDT documented as of this encounter Plan of Treatment Not on file documented as of this encounter Visit Diagnoses Not on filedocumented in this encounter Care Teams Shot Hole Shooter Relationship Specialty Start Date End Date Katelin Shaw MD [address] [place], [place] [phone] PCP - General Family Medicine 01/05/13 documented as of this encounter
--- OUTSIDE RECORDS SUMMARY | 2024-08-28 12:23 | XMS_ITS | Encounter Summary ---
Author Organization [employer] Address [address] [place] [address] [address] [place] [address] Care Team Providers Care Automotive Maintenance Technician Name Role Phone Katelin Shaw MD Primary Care Provider [phone] Encounter Details Date Type Department Care Team (Late st Contact Info) Description 06/10/2022 Orders Only [facility]INE [address] [place], [place] [phone] Katelin Shaw MD [address] [place] [address] Essential hypertension (Primary Dx); Gout, unspecified cause, unspecified chronicity, unspecified site; Impaired fasting glucose Social History Tobacco Use Types Packs/Day Years Used Date Smoking Tobacco: Never Assessed Comments Unknown Sex and Gender Information Value Date Recorded Sex Assigned at Female 03/01/2022 10:14 AM EDT Legal Sex Female 10:14 AM EDT Gender Identity Female 03/01/2022 10:14 AM EDT Sexual Orientation Straight 03/01/2022 10 :14 AM EDT documented as of this encounter Plan of Treatment Scheduled Orders Name Type Priority Associated Diagnoses Orde r Schedule TSH W/Reflex to FT4 Lab Routine Essential hypertension Expected: 06/10/2022 (Approximate), Expires: 06/10/2023 Hemoglobin A1c Lab Routine Impaired fasting glucose Expected: 06/10/2022 (Approximate), Expires: 06/10/2023 Lipid Panel, Standard Lab Routine Essential hypertension Expected: 06/10/2022 (Approximate), Expires: 06/10/2023 Comprehensive Metabolic Panel Lab Routine Essential hypertension Expected: 06/10/2022 (Approximate), Expires: 06/10/2023 Uric acid Lab Routine Gout, unspecified cause, unspecified chronicity, unspecified site Expected: 06/10/2022 (Approximate), Expires: 06/10/2023 documented as of this encounter Visit Diagnoses Diagnosis Essential hypertension- Primary Unspecified essential hypertension Gout, unspecified cause, unspecified chronicity, unspecified site Impaired fasting glucose documented in this encounter Care Teams Automotive Maintenance Technician Relationship Specialty Start Date End Date Katelin Shaw MD [address] [place] [phone] PCP - General Family Medicine 01/05/13 documented as of this encounter
--- OUTSIDE RECORDS SUMMARY | 2024-08-28 12:23 | XMS_ITS | Encounter Summary ---
Author Organization [email or web address] [facility] Address [address] [place] [address] Care Team Providers Care Research Recruiter Name Role Phone Katelin Shaw Primary Care Provider Bhavesh fowler Encounter Details Date Type Department Care Team Description 09/04/2021 Orders Only Medical Records [address] [place] [address] Tim Hodges MD [address] [place] [address] [address] [place] [address] Social History Tobacco Use Types Packs/Day Years [...] suspected to have Coronavirus/COVID-19? No / Unsure 09/07/2021 10:34 AM EDT documented as of this encounter Plan of Treatment Not on file documented as of this encounter Procedures Procedure Name Priority Date/Time Associated Diagnosis Comments OUTSIDE ULTRASOUND Routine 09/04/2021 documented in this encounter Results * OUTSIDE ULTRASOUND (09/04/2021) Tim Hodges MD RADIOLOGY documented in this encounter Visit Diagnoses Not on filedocumented in this encounter Care Teams Research Recruiter Relationship Specialty Start Date End Date Katelin Shaw PCP - General Family Practice 01/08/14 documented as of this encounter
--- OUTSIDE RECORDS SUMMARY | 2024-08-28 12:23 | XMS_ITS | Encounter Summary ---
Author Organization [facility] Address [address] [place] [address] Care Team Providers Care Lead Applier Name Role Phone Katelin Shaw Primary Care Provider Unavailedilma e Reason for Visit * Reason Onset Date Comments Vascular-procedure Pa 09/10/2021 Encounter Details Date Type Department Care Team Description 09/10/2021 Telephone Vascular Surgery - [place] [address] [place] [address] Yani Arellano PA-C [address] [facility] [address] [place] [address] Vascular-procedure Pa Social History Tobacco Use Types Packs/Day Years [...] AM EDT documented as of this encounter Miscellaneous Notes * Telephone Encounter - Rosa Maria Lagunas - 09/10/2021 10:18 AM EDT Please obtain authorization and schedule patient for right greater saphenous vein ablation documented in this encounter Plan of Treatment Not on file documented as of this encounter Visit Diagnoses Not on filedocumented in this encounter Care Teams Lead Applier Relationship Specialty Start Date End Date Katelin Shaw PCP - General Family Practice 01/08/14 documented as of this encounter
== END 2024-08-28 11:31 | disposition home or self-care (01) ==
LOC: HO.HUSH 10:42
PROVIDERS: PCP Family Medicine; Visit Provider Nurse Practitioner Family
DX: N39.0 Urinary tract infection, site not specified (principal); R39.9 Unspecified symptoms and signs involving the genitourinary system; N39.41 Urge incontinence; Z13.9 Encounter for screening, unspecified
CPT/HCPCS: 99214; G2211

== ENCOUNTER → 2024-08-28 10:41 | Outpatient (BNVA) | payer OTHER, SELFPAY | PROVIDERS: PCP Family Medicine; Visit Provider Nurse Practitioner Family | DX: N39.41 Urge incontinence (principal); N39.0 Urinary tract infection, site not specified | CPT/HCPCS: 51798; 81003; 99212 ==

== ENCOUNTER 2024-09-03 10:26 | Outpatient (REF) | payer OTHER, SELFPAY ==
[2024-09-03 11:41] LABS: Estimated Average Glucose 114 mg/dL; Hemoglobin A1C 137.2871 umol/L; Hemoglobin A1c % 5.6 % (<6.0); Total Hemoglobin (HGBA1C) 3624.8394 umol/L
--- OUTSIDE RECORDS SUMMARY | 2024-09-03 11:48 | XMS_ITS | Encounter Summary ---
Author Organization [email or web address] [facility] Address [address] [place] [address] 7t [place] [address] Care Team Providers Care Tv News Director Name Role Phone Katelin Shaw MD Primary Care Provider [phone] Encounter Details Date Type Department Care Team (Late st Contact Info) Description 06/10/2022 Orders Only [facility] MEDICINE [address] [place], [place] [phone] Katelin Shaw MD [address] [place] [phone] Essential hypertension (Primary Dx); Gout, unspecified cause, [...] as of this encounter Plan of Treatment Upcoming Encounters Date Type Department Care Team (Late st Contact Info) Description 10/15/2024 11:15 AM EDT Office Visit [facility] [address] [place] [phone] Katelin Shaw MD [address] [place], [place] [phone] Scheduled Orders Name Type Priority Associated Diagnoses [...] glucose documented in this encounter Care Teams Tv News Director Relationship Specialty Start Date End Date Katelin Shaw MD [address] [place] [phone] PCP - General Family Medicine 01/05/13 documented as of this encounter
--- OUTSIDE RECORDS SUMMARY | 2024-09-03 11:48 | XMS_ITS | Encounter Summary ---
Author Organization [employer] Address [address] [facility] 7t [place] [address] Care Team Providers Care Cycle Specialist Name Role Phone Katelin Shaw MD Primary Care Provider [phone] Reason for Visit * Reason Onset Date Comments tb test 08/31/2024 Encounter Details Date Type Department Care Team ([facility] st Contact Info) Description 08/31/2024 Telephone [facility] MEDICINE [address] [place], [place] [phone] Cait Hernandez [place] tb test Social History Tobacco Use Types Packs/Day Years Used Date Smoking Tobacco: Never Passive Smoke Exposure: Never Smokeless Tobacco: Never Alcohol Use Standard Drinks/Week Comments Defer 0 [...] encounter Miscellaneous Notes * Telephone Encounter - Cait Hernandez [place] - 08/31/2024 10:35 AM EDT Lvkb -suha called pt to inform pt that the labs are ready documented in this encounter Plan of Treatment Upcoming Encounters Date Type Department Care Team (Late st Contact Info) Description 10/15/2024 11:15 AM EDT Office Visit [facility] MEDICINE [address] [place] [phone] Katelin Shaw MD [address] [place] [phone] documented as of this encounter Visit Diagnoses Not on filedocumented in this encounter Additional Health Concerns Assessment Noted Time PHQ-9 Depression Total Score: 0 08/11/19 24 9:44 AM EDT documented as of this encounter Care Teams Cycle Specialist Relationship Specialty Start Date End Date Katelin Shaw MD [address] [place] [phone] PCP - General Family Medicine 01/05/13 documented as of this encounter
--- OUTSIDE RECORDS SUMMARY | 2024-09-03 11:48 | XMS_ITS | Encounter Summary ---
Author Organization [facility] Address [address] [place] [address] 7[address] [place] [address] Care Team Providers Care Automobile Spring Repairer Name Role Phone Katelin Shaw MD Primary Care Provider [phone] Encounter Details Date Type Department Care Team (Late st Contact Info) Description 05/07/2022 Orders Only [facility] MED[facility]INE [address] [place] [phone] Keli Rodriguez RN [address] [place] [address] Social History Tobacco Use Types Packs/Day Years [...] Description 10/15/2024 11:15 AM EDT Office Visit [facility] [address] [place] [address] Katelin Shaw MD [address] [place] [phone] documented as of this encounter Visit Diagnoses Not on filedocumented in this encounter Care Teams Automobile Spring Repairer Relationship Specialty Start Date End Date Katelin Shaw MD [address] [place] [phone] PCP - General Family Medicine 01/05/13 documented as of this encounter
--- OUTSIDE RECORDS SUMMARY | 2024-09-03 11:48 | XMS_ITS | Encounter Summary ---
Author Organization [employer] Address [address] [facility] 7t [place] [address] Care Team Providers Care Play Reader Name Role Phone Katelin Shaw MD Primary Care Provider [phone] Encounter Details Date Type Department Care Team ([facility] st Contact Info) Description 08/31/2024 Orders Only [facility] MEDICINE [address] [place], [place] [phone] Katelin Shaw MD [address] [place] [address] Encounter for screening for respiratory tuberculosis (Primary Dx) Social History Tobacco Use Types Packs/Day Years [...] Description 10/15/2024 11:15 AM EDT Office Visit [facility] MEDICINE [address] [place] [address] Katelin Shaw MD [address] [place] [address] Scheduled Orders Name Type Priority Associated Diagnoses Orde r Schedule T-SPOT??.TB Lab Routine Encounter for screening for respiratory tuberculosis Expected: 08/31/2024 (Approximate), Expires: 08/31/2025 documented as of this encounter Visit Diagnoses Diagnosis Encounter for screening for respiratory tuberculosis- Primary documented in this encounter Additional Health Concerns Assessment Noted Time PHQ-9 Depression Total Score: 0 08/11/19 24 9:44 AM EDT documented as of this encounter Care Teams Play Reader Relationship Specialty Start Date End Date Katelin Shaw MD [address] [place] [address] PCP - General Family Medicine 01/05/13 documented as of this encounter
--- OUTSIDE RECORDS SUMMARY | 2024-09-03 11:48 | XMS_ITS | Clinical Summary ---
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 - Her daughter agreed to mushroom picker wound supply and send to the patient in [place] - Given Rx Augmentin, in case her [...] (12/25/2023 4:01 PM EDT): - following with [facility] Urogyn and [facility] Uro - Continue Gemtesa and Estrace Left [...] however patient states that her insurance company, [employer], suggested that patient should get prescription Stasis dermatitis 08/22/2023 Assessment & Plan (08/22/2023 5:11 AM EDT): - seen by vascular specialist; no significant venous insufficiency; Dx lymphedema - recurrent redness despite Tx for cellulitis multiple times - seen by edge trimmer mechanic; Dx stasis dermatitis. Rx betamethasone ointment - improving and stable Arthritis of midfoot 08/11/2023 Uterovaginal prolapse 08/11/2023 History of recurrent UTI (urinary tract infectio n) 08/11/2023 Lymphedema 04/11/2023 Assessment & Plan (06/26/2024 12:14 PM EST): - following with [facility] vascular specialist, last seen in Mar 2024 - Continue compression, leg elevation, and fluid balance - Continue pneumatic compression device Assessment & Plan (04/12/2024 1:17 PM EST): - following with [facility] vascular specialist, last seen in Mar 2024 [...] -pt has known venous insufficiency -Evaluated by job placement counselor, and recommended to wear comfortable shoes -Tried and completed PT. -Encouraged to follow instructions by orthopedist, vascular specialist, and job placement counselor -Advised to reschedule appt with orthopedist and [...] -pt has known venous insufficiency -Evaluated by job placement counselor, and recommended to wear comfortable shoes -Tried and completed PT. -Encouraged to follow instructions by orthopedist, vascular specialist, and job placement counselor -Advised to reschedule appt with orthopedist and [...] -pt has known venous insufficiency -Evaluated by job placement counselor, and recommended to wear comfortable shoes -Tried and completed PT. -Encouraged to follow instructions by orthopedist, vascular specialist, and job placement counselor -Advised to reschedule appt with orthopedist and [...] insufficiency -Followed by [facility] provider -Followed by job placement counselor, and recommended to wear comfortable shoes -Tried and completed PT. -Encouraged to follow instructions by orthopedist, vascular specialist, and job placement counselor Assessment & Plan (10/02/2022 6:39 PM EDT): -X-ray demonstrated degenerative changes of ankle and midfoot. Pes planus alignment -pt has known venous insufficiency -Evaluated by job placement counselor, and recommended to wear comfortable shoes -Tried and completed PT. -Encouraged to follow instructions by orthopedist, vascular specialist, and job placement counselor -Advised to reschedule appt with orthopedist and [...] provider, last seen in 2021 -Evaluated by job placement counselor, and recommended to wear comfortable shoes -Tried and completed PT. -Encouraged to follow instructions by orthopedist, vascular specialist, and job placement counselor -Advised to reschedule appt with orthopedist and encouraged to contact specialists if pt is still having problems -evaluate with MRI Overactive bladder 06/27/2022 Assessment & Plan (12/25/2023 4:01 PM EDT): -s/p pelvic organ prolapse organ repair twice, most recently in Jun 2021 with midurethral sling -pt was following with [facility] uroGYN, last seen on 08/28/23, no UTI since surgery and new regimen -Pt is following w/ [facility] Urologist, recently seen on 09/20/23 -continue current medications, Gemtesa and vaginal estrogen Assessment & Plan (04/17/2023 11:37 AM EST): -s/p pelvic organ prolapse organ repair twice, most recently in Jun 2021 with midurethral sling -pt was following with [facility] uroGYN, last seen on 10/21/21, no UTI since surgery and new regimen -Pt is following w/ [facility] Urologist, recently seen on 03/22/23 -continue current [...] not have f/u, will refer her to development geologist for consultation Right leg swelling 09/07/2021 Assessment & Plan (12/20/2023 11:06 AM EDT): - printed circuit board designer' impression is lymphedema - pain may be due to musculoskeletal pathology - currently using bumetanide 0.5 mg daily Assessment & Plan (08/11/2023 10:04 AM EDT): - printed circuit board designer' impression is lymphedema - pain may be due to musculoskeletal pathology - currently using bumetanide 0.5 mg daily Assessment & Plan (04/17/2023 11:38 AM EST): - printed circuit board designer' impression is lymphedema - pain may be [...] symptomatic on right than left -Evaluated by [facility] Vascular service -Evaluated by [facility] Vascular service, last seen on 09/07/23. No significant venous reflux. Dx lymphedema. Continue conservative management with compression stockings Treatment Hx: -leg elevation; Unna boots; compression stocking -Microphlebectomy of right leg in 2018 -03/18/22 endovenous radiofrequency ablation of right great saphenous vein -Continue compression stocking, leg elevation Assessment & Plan (12/20/2023 12:06 PM EDT): -Bilateral, more symptomatic on right than left -Evaluated by [facility] Vascular service -Evaluated by [facility] Vascular service, last seen on 09/07/23. No significant venous reflux. Dx lymphedema. Continue conservative management with compression stockings Treatment Hx: -leg elevation; Unna boots; compression stocking -Microphlebectomy of right leg in 2018 -03/18/22 endovenous radiofrequency ablation of right great saphenous vein -Continue compression stocking, leg elevation Assessment & Plan (08/22/2023 5:09 AM EDT): -Bilateral, more symptomatic on right than left -Evaluated by [facility] Vascular service -Evaluated by [facility] Vascular service, last seen on 03/07/23. No significant venous reflux. Dx lymphedema. Continue conservative management. Treatment Hx: -leg elevation; Unna boots; compression stocking -Microphlebectomy of right leg in 2018 -03/18/22 endovenous radiofrequency ablation of right great saphenous vein -Continue compression stocking, leg elevation Assessment & Plan (04/17/2023 11:31 AM EST): -Bilateral, more symptomatic on right than left -Evaluated by [facility] Vascular service -Evaluated by [facility] Vascular service, last seen on 03/07/23. No significant venous reflux. Dx lymphedema. Continue conservative management. Treatment Hx: -leg elevation; Unna boots; compression stocking -Microphlebectomy of right leg in 2017 -03/18/22 endovenous radiofrequency ablation of right great saphenous vein -Continue compression stocking, leg elevation Assessment & Plan (12/06/2022 10:31 AM EDT): -Bilateral, more symptomatic on right than left -Followed by [facility] Vascular service -Recently seen by [facility] Vascular service, 11/15/22. Advised to continue current treatment. No additional evalaution or treatment suggested. -No change in treatment plan. Treatment Hx: -leg elevation; Unna boots; compression stocking -Microphlebectomy of right leg in 2017 -03/18/22 endovenous radiofrequency ablation of right great saphenous vein -Continue compression stocking, leg elevation Assessment & Plan (09/22/2022 12:40 PM EDT): -Bilateral, more symptomatic on right than left -Followed by [facility] Vascular service, last seen by Dr. Lorenzo on 04/08/22 Treatment Hx: -leg elevation; Unna boots; compression stocking -Microphlebectomy of right leg in 2017 -03/18/22 endovenous radiofrequency ablation of right great saphenous vein -Continue compression stocking, leg elevation Assessment & Plan (06/27/2022 6:03 AM EST): -Bilateral, more symptomatic on right than left -Followed by [facility] Vascular service, last seen by Dr. Lorenzo [...] EDT): - mixed - previously followed by [facility] Urogyn. S/p prolapse repair - currently following with [facility] Uro for overactive bladder - pt needs incontinence supply Assessment & Plan (04/17/2023 11:35 AM EST): - mixed - previously followed by [facility] Urogyn. S/p prolapse repair - currently following with [facility] Uro for overactive bladder - pt needs [...] 9:00 AM EST): - previously followed by bagging salvager - mildly abnormal stress test in 2012, inferior wall ischemia - continue rosuvastatin, ASA, and metoprolol - continue isosorbide for chest pain - continue working on lifestyle modification Assessment & Plan (12/20/2023 11:05 AM EDT): - previously followed by bagging salvager - mildly abnormal stress test in 2012, inferior wall ischemia - continue rosuvastatin, ASA, and metoprolol - continue isosorbide for chest pain - continue working on lifestyle modification Assessment & Plan (04/17/2023 11:34 AM EST): - previously followed by bagging salvager - mildly abnormal stress test in 2012, inferior wall ischemia - continue rosuvastatin, ASA, and metoprolol - continue isosorbide for chest pain - continue working on lifestyle modification Assessment & Plan (12/06/2022 10:31 AM EDT): - previously followed by bagging salvager - mildly abnormal stress test in 2012, inferior wall ischemia - continue rosuvastatin, ASA, and metoprolol - continue isosorbide for chest pain - continue working on lifestyle modification Assessment & Plan (2022 5:50 PM EST): - previously followed by bagging salvager - mildly abnormal stress test in 2012, [...] Encounters Date Type Department Care Team Description 08/31/[address] [facility] [place] [address] Cait Hernandez [place] tb test 08/31/[address] [facility] [address] [facility] [place] [address] Katelin Shaw MD Encounter for screening for respiratory tuberculosis (Primary Dx) 08/09/[address] [facility] [address] [facility] [place] [address] Katelin Shaw MD 06/26/2024 11:30 AM EST Office [facility] [place] [address] Katelin Shaw MD Essential hypertension (Primary Dx); [...] (BMI) of 35.0 to 35.9 in adult ([facility]) 06/26/2024 Travel 06/20/[address] [facility] [place] [address] Katelin Shaw MD Chart Prep 06/13/2024 Refill [facility] [address] [place] [address] Katelin Shaw MD Vitamin D deficiency from [...] 12/20/2023 10:47 AM EDT Plan of Treatment Upcoming Encounters Date Type Department Care Team (Late st Contact Info) Description 10/15/2024 11:15 AM EDT Office Visit [facility]IC[facility] [address] [place] [address] Katelin Shaw MD [address] [place] [address] Health Maintenance Due Date Last Done Comments [...] Procedure Name Priority Date/Time Associated Diagnosis Comments HEMOGLOBIN A1C Routine 09/03/2024 10:28 AM EDT Impaired fasting glucose BI MAMMOGRAM SCREENING TOMOSYNTHESIS BILATERAL Routine 03/28/2024 [...] Recently Relevant to Health Maintenance Results * Hemoglobin A1c (09/03/2024 10:28 AM EDT) Hemoglobin A1c 5.6 <6.0 % [facility] Comment:Hemoglobin A1C Refer ence Range Adults: 4.8 - 6.0 % Non diabetic: < 6.0 % Goal: < 7.0 %Additional Action Suggested: > 8.0 %Note: Hemoglobin A1c results are invalid for patients with abnormal amounts of HbF. Blood transfusions may impact the HbA1c concentration in the patient sample. Estimated Average Glucose 114 mg/dL [facility] Comment:eAG = Estimated ave rage glucose which is %A1C expressed asaverage glucose, using the formula of the [id number] Glucose study (ADAG), Diabetes Care, Vol.31,#8,Aug. 2008 Blood Venous blood specimen / Unknown 09/03/2024 10:28 AM EDT 09/03/2024 11:08 AM EDT us Katelin Shaw MD LAB BLOOD ORDERABLES Final Resul t [facility] [address] [place] [address] [phone] * BI Mammogram Screening Tomosynthesis Bilateral (03/28/2024 9:45 AM EST) Anatomical Region Laterality Modality Breast Bilateral Mammography 03/28/2024 9:45 AM EST Narrative 04/06/2024 9:14 AM EST ? [facility] ? [address] ?[place] [address] ? Mammography Report ? Signed ? Patient: Martinez,Zilma ?MR#: [id number] ? : 1950 ?Acct:[id number] ? Age/Sex: 73 / F ?ADM Date: 11/27/24 ? Loc: HO.MAMMO ? Attending Dr: Katelin Shaw MD ? Ordering Physician: Katelin Shaw MD ?Results: 1Negative ? Date of Service: //24 ?Follow Up: 1 Year From Orig ?? inal Mammogram ? Procedure(s): MM tomosynthesis screening BI ?? Accession Number(s): [id number] ? cc: Katelin Shaw MD ? EXAMINATION: [...] ??04/06/2024 09:11 AM EST ? Dictated By: ?Polly Connelly DO ? Signed By: ?<Electronically signed by Polly Connelly, DO in OV> ? 04/06/24 0911 ? DD/ 0945 ? TD/TT: 03/28/24 1000 ? Boat Crew Deck Hand: ? Procedure Note Chriss Ballard - 04/06/2024 [facility] [address] [place] [address] [place] [address] Mammography Report Signed Patient: Guille MartinezmR#: [id number] : 2Acct:[id number] Age/Sex: 73 / FADM Date: 03/28/24 Loc: HO.MAMMO Attending Dr: Katelin Shaw MD Ordering Physician: Katelin Shaw MDResults: 1Negative Date of Service: 03/28/24Follow Up: 1 Year From Orig ina Mammogram Procedure(s): MM tomosynthesis screening BI Accession Number(s): [id number] cc: Katelin Shaw MD EXAMINATION: MM SCREENING [...] 04/06/24 0911 DD/ 0945 TD/TT: 03/28/24 1000 Boat Crew Deck Hand: us Katelin Shaw MD IMG BI PROCEDURES Edited Result - Final * Lipid Panel with Reflex to Direct LDL (07/22/2023 9:40 AM EDT) Triglycerides 123 <150 mg/dL [facility] Comment:Desirable Triglyceri de: less than 150 mg/dLBorderline High Triglyceride 150-199 mg/dLHigh Triglyceride: 200-499 mg/dLVery High Triglyceride: greater than or equal to 5OO mg/dL Cholesterol 116 <200 mg/dL [facility] Comment:Desirable Cholestero l: less than 200 mg/dLBorderline High Cholesterol: 200-239 mg/dLHigh Cholesterol: greater than 239 mg/dL LDL Cholesterol Calculated 48 <100 mg/dL [facility] Comment:Desirable LDL: less than 100 mg/dLNear Optimal/Above Optimal LDL: 110- 129 mg/dLBorderline High LDL: 130-159 mg/dLHigh LDL: 160-189 mg/dLVery High LDL: greater than or equal to 190 mg/dL HDL Cholesterol 44 >40 mg/dL [facility] Comment:Desirable HDL: great er than 40 mg/dL Note: This HDL assay may give artificially low results in patients with liver disease. Blood 07/22/2023 9:40 AM EDT 07/22/2023 11:14 AM EDT us Katelin Shaw MD LAB BLOOD ORDERABLES Final Resul t [facility] [address] [place], [place] [phone] from Last 3 Months or Most Recently Relevant to Health Maintenance Insurance [address] [place] [id number] [facility] [employer] (O D-SNP) GAUTAM RANGEL [id number] [place] [id number] [facility] [address] [place] [phone] Care Teams Development Spec Relationship Specialty Start Date End Date Katelin Shaw MD [address] [place] [id number] PCP - General Family Medicine 01/05/13
--- OUTSIDE RECORDS SUMMARY | 2024-09-03 11:48 | XMS_ITS | Data Portability ---
Author Organization [employer] [facility], [place] [employer] Address [address] [place] [id number] Care Team Providers Care Environmental Air Specialist Name Role Phone [facility] Primary Care Provider HIM CCA OTHER Assessment Encounter Date Assessment Date Assessment LastModified by Organization Details LastModified Time 03/29/2024 03/29/2024 I have reviewed and agree with the Assessment and Plan as documented by the Suction Worker. I provided real-time medical direction via phone [...] ne hyclate 100 mg tablet 2023 024 [facility], [address] [place] [address], [phone], 20:12:38 doxycycli ne hyclate 100 mg capsule 2023 024 [facility], [address] [place] [address], [id number], 4 07:34:34 Patient TargetsNo targets recorded. Patient [...] Details Last Updated DateTime 4 98.4 [degF] 83175.4 g 14 /min 157.48 cm 97 % [...] SNOMED-CT Code Diagnosis ICD10 Code Diagnosis Note [id number] Antione Johns MD Main - [facility] [address] [place] [phone] 03/29/2024 20:11:04 03/30/2024 15:33:48 Cellulitis of lower limb 925527336 L03.119 Health Concerns Section Related Observation LastModified by Organization Detai ls LastModified Time None Recorded Concern Status LastModified by Organization Details LastModified Time None Recorded Advance Directives Directive None Recorded Payers Encounter Date Sequence Insurance Name Policy Number Policy Cooper Covered Member ID Cooper Member ID Guarantor Name 03/29/2024 1 [facility] [employer] - DOS ON OR AFTER 2022 - DUAL ELIGIBLE - [employer] OPTIONS AND ONE CARE (MEDICARE REPLACEMENT/ADV ANTAGE - HMO) Ariana Martinez [id number] Ariana Martinez Notes Date Note Type Note [...] ................... ................... ................... ................... ................... ................... ........ Suction Worker Note From Quintin Juarez: Patient alert and oriented, strong language barrier most information through on scene bone char kiln operator. Patient complains of right lower leg pain, [...] yellow liquid. Good CSM in right leg. [facility] orders doxycycline 100 mg PO now and will call in more to patient? s local pharmacy. [facility] advises patient symptoms improve in three days to go to ED for evaluation and treatment. Administered doxycycline 100 mg PO without complication using the five rights. Red flags and patient education discussed wound care discussed. Patient and group cio/caregive r demonstrate understanding of care and plan. ................... ................... ................... ................... ................... ................... ................... ........ [facility] Consulted: Antione Johns ................... ................... ................... ................... ................... ................... ................... ........ Disposition: Fulfilled Antione Johns MD [address] [facility],[address], [place], [phone], [facility] [employer] 03/30/2024 09:30:19 OBGyn Episode No OBEpisode recorded.
[2024-09-03 12:43] LABS: Alanine Aminotransferase 15 U/L (0-31); Albumin Level 4.1 g/dL (3.5-5.0); Alkaline Phosphatase 87 U/L (39-117); Anion Gap 13 (12-20); Aspartate Amino Transferase 22 U/L (5-31); Bilirubin Total 0.6 mg/dL (0.0-1.0); Blood Urea Nitrogen 21 mg/dL (9-16); Calcium 9.1 mg/dL (8.4-10.2); Carbon Dioxide 25 mmol/L (22-29); Chloride 108 mmol/L (96-108); Cholesterol 110 mg/dL (<200); Estimated Glomerular Filt Rate > 60; Glucose Random 81 mg/dL (60-115); Potassium 3.7 mmol/L (3.3-5.1); Sodium 142 mmol/L (135-145); Total Protein 7.3 g/dL (6.5-8.0); Triglycerides 88 mg/dL (<150); Vitamin D 25-OH Total 34.7 ng/mL (>30)
[2024-09-03 12:48] LABS: HDL Cholesterol 45 mg/dL (>40); LDL Cholesterol Calculated 48 mg/dL (<100); Uric Acid 3.8 mg/dL (2.4-5.7)
[2024-09-03 14:08] LABS: Reflex LDLD? No
[2024-09-06 12:58] LABS: TS Negative Control Passed; TS Panel A 1; TS Panel B 1; TS Positive Control Passed; TSpotTB Negative (Negative)
== END 2024-09-03 10:27 | disposition home or self-care (01) ==
LOC: HO.HHCL 10:26
PROVIDERS: Visit Provider Family Medicine
DX: E78.5 Hyperlipidemia, unspecified (principal); I10 Essential (primary) hypertension; M10.9 Gout, unspecified; E56.9 Vitamin deficiency, unspecified; E55.9 Vitamin D deficiency, unspecified; R73.01 Impaired fasting glucose; Z11.1 Encounter for screening for respiratory tuberculosis
CPT/HCPCS: 36415; 80053; 80061; 82306; 83036; 84550; 86481

== ENCOUNTER 2024-12-28 12:42 | Outpatient (REF) | payer OTHER, SELFPAY ==
--- NOTE | ~2024-12-28 | US_ITS ---
EXAMINATION: US RETROPERITONEAL COMPLETE (RENAL) CLINICAL INFORMATION: Urinary tract infection.. COMPARISON: None available. TECHNIQUE: Real-time imaging of the kidneys and bladder. FINDINGS: RIGHT KIDNEY: 8.7 x 5 x 1 x 4.8 cm (SAG x AP x TRV). The kidney is normal in size, contour, and echogenicity. Renal cortical thickness is normal. No calculi or fissures focal parenchymal lesions. No hydronephrosis. There is an upper pole simple cyst measuring 1.0 x 1.2 x 1.2 cm. LEFT KIDNEY: 9.7 x 4.1 x 4.0 cm (SAG x AP x TRV). The kidney is normal in size, contour, and echogenicity. Renal cortical thickness is normal. No calculi or focal parenchymal lesions. No hydronephrosis. BLADDER: Well distended and normal. Bilateral ureteral jets are demonstrated. Prevoid bladder volume is 154 mL. Postvoid bladder volume is 138 mL. US/US retroperitoneal comp IMPRESSION: 1. Essentially normal kidneys bilaterally. 2. Normal appearing urinary bladder. Significant post void residual of estimated 138 mL. Electronically signed by: Madi Jo MD 12/28/2024 01:22 PM EDT
--- OUTSIDE RECORDS SUMMARY | 2024-12-28 13:03 | XMS_ITS | Clinical Summary ---
Author Organization [employer] Address [address] [place] [address] 7[address] [place] [address] Care Team Providers Care Superintendent Colliery Name Role Phone Katelin Shaw MD Primary Care Provider [phone] Allergies Active Allergy Reactions Criticality Noted Date [...] pain 150 g 3 08/11/19 24 Active sertraline (Zoloft) 25 MG tablet TAKE 1 TABLET BY MOUTH EVERY MORNING 30 tablet 3 11/18/19 24 Active bacitracin 500 UNIT/GM ointmentIndicat ions:Cellulitis of right lower extremity Apply topically 2 times daily. 14 g 03/07/20 24 Active Aspirin Low Dose 81 MG EC tabletIndicatio ns:Coronary artery disease involving cabazon heart without angina pectoris, unspecified vessel or lesion type TAKE 1 TABLET BY MOUTH EVERY MORNING 90 tablet 3 04/16/20 24 Active D3-1000 25 MCG (1000 UT) capsuleIndicati ons:Vitamin D deficiency TAKE 1 CAPSULE BY MOUTH EVERY MORNING 90 capsule 3 06/13/19 25 Active FT Pain Reliever Ex Str Adult 500 MG tablet TAKE 1 TO 2 TABLETS BY MOUTH EVERY 8 HOURS NEEDED, DO NOT EXCEED 6 TABLETS / 24 HOURS 90 tablet 3 10/05/19 25 Active amLODIPine (Norvasc) 10 MG tablet TAKE 1 TABLET BY MOUTH EVERY MORNING 90 tablet 3 10/20/19 25 Active isosorbide mononitrate ER (Imdur) 60 MG 24 hr tablet TAKE 1 TABLET BY MOUTH EVERY MORNING 90 tablet 3 10/20/19 25 Active metoprolol succinate XL (Toprol-XL) 25 MG 24 hr tablet TAKE 1 TABLET BY MOUTH EVERY MORNING 90 tablet 3 10/20/19 25 Active omega-3 (Fish Oil) 1000 MG capsule TAKE 1 CAPSULE BY MOUTH EVERY MORNING 90 capsule 3 11/08/19 25 Active allopurinol (Zyloprim) 100 MG tablet TAKE 1 TABLET BY MOUTH EVERY MORNING 90 tablet 11/08/19 25 Active rosuvastatin (Crestor) 5 MG tablet TAKE 1 TABLET BY MOUTH AT BEDTIME 90 tablet 1 11/20/19 25 Active bumetanide (Bumex) 0.5 MG tablet TAKE 1 TABLET BY MOUTH EVERY MORNING 30 tablet 1 12/25/19 25 Active bumetanide (Bumex) 0.5 MG tablet TAKE 1 TABLET BY MOUTH EVERY MORNING 30 tablet 1 10/20/19 25 025 Discontinued Active Problems Problem Noted Date Diagnosed Date Acute pain of right shoulder 06/26/2024 Assessment & Plan (06/26/2024 12:13 PM EST): - 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 biceps tendinitis - patient is not interested in PT or injection - will hold further evaluation at this time - activity modification and judicious use of APAP Urge incontinence 12/20/2023 Assessment & Plan (12/25/2023 4:01 PM EDT): - following with [facility] Urogyn and [facility] Uro - Continue Gemtesa and Estrace Left [...] however patient states that her insurance company, [employer], suggested that patient should get prescription Stasis dermatitis 08/22/2023 Assessment & Plan (10/24/2024 8:40 AM EDT): - seen by vascular specialist; no significant venous insufficiency; Dx lymphedema - recurrent redness despite Tx for cellulitis multiple times - seen by millinery designer; Dx stasis dermatitis. Rx betamethasone ointment - improving and stable Assessment & Plan (08/22/2023 5:11 AM EDT): - seen by vascular specialist; no significant venous insufficiency; Dx lymphedema - recurrent redness despite Tx for cellulitis multiple times - seen by millinery designer; Dx stasis dermatitis. 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 Rx TMP/SMX. - continue Estrace cream - continue d-mannose supplement, vitamin C, adequate fluid intake and behavioral therapy - prevent constipation Lymphedema 04/11/2023 Assessment & Plan (10/24/2024 8:44 AM EDT): - following with [facility] vascular specialist, last seen in August 2024, annual follow up. - Continue compression, leg elevation, and fluid balance - Continue pneumatic compression device Assessment & Plan (06/26/2024 12:14 PM EST): - following with [facility] vascular specialist, last seen in Mar 2024 - Continue compression, leg elevation, and fluid balance - Continue pneumatic compression device Assessment & Plan (04/12/2024 1:17 PM EST): - following with [facility] vascular specialist, last seen in Mar 2024 [...] edentulism 12/21/2022 Dyslipidemia 09/22/2022 Assessment & Plan (10/24/2024 8:41 AM EDT): - Last lipid profile: 09/03/24 - continue rosuvastatin 5 mg at bedtime - continue working on lifestyle modifications Assessment & Plan (06/26/2024 9:01 AM EST): [...] -pt has known venous insufficiency -Evaluated by shingle weaver, and recommended to wear comfortable shoes -Tried and completed PT. -Encouraged to follow instructions by orthopedist, vascular specialist, and shingle weaver -Advised to reschedule appt with orthopedist and [...] -pt has known venous insufficiency -Evaluated by shingle weaver, and recommended to wear comfortable shoes -Tried and completed PT. -Encouraged to follow instructions by orthopedist, vascular specialist, and shingle weaver -Advised to reschedule appt with orthopedist and [...] -pt has known venous insufficiency -Evaluated by shingle weaver, and recommended to wear comfortable shoes -Tried and completed PT. -Encouraged to follow instructions by orthopedist, vascular specialist, and shingle weaver -Advised to reschedule appt with orthopedist and [...] insufficiency -Followed by [facility] provider -Followed by shingle weaver, and recommended to wear comfortable shoes -Tried and completed PT. -Encouraged to follow instructions by orthopedist, vascular specialist, and shingle weaver Assessment & Plan (10/02/2022 6:39 PM EDT): -X-ray demonstrated degenerative changes of ankle and midfoot. Pes planus alignment -pt has known venous insufficiency -Evaluated by shingle weaver, and recommended to wear comfortable shoes -Tried and completed PT. -Encouraged to follow instructions by orthopedist, vascular specialist, and shingle weaver -Advised to reschedule appt with orthopedist and [...] provider, last seen in 2021 -Evaluated by shingle weaver, and recommended to wear comfortable shoes -Tried and completed PT. -Encouraged to follow instructions by orthopedist, vascular specialist, and shingle weaver -Advised to reschedule appt with orthopedist and encouraged to contact specialists if pt is still having problems -evaluate with MRI Overactive bladder 06/27/2022 Assessment & Plan (12/25/2023 4:01 PM EDT): -s/p pelvic organ prolapse organ repair twice, most recently in Jun 2021 with midurethral sling -pt was following with [facility] uroGYN, last seen on 08/28/23, no UTI since surgery and new regimen -Pt is following / [facility] Urologist, recently seen on 09/20/23 -continue current medications, Gemtesa and vaginal estrogen Assessment & Plan (04/17/2023 11:37 AM EST): -s/p pelvic organ prolapse organ repair twice, most recently in Jun 2021 with midurethral sling -pt was following with [facility] uroGYN, last seen on 10/21/21, no UTI since surgery and new regimen -Pt is following w/ [facility] Urologist, recently seen on 03/22/23 -continue current [...] not have f/u, will refer her to [email or web address] software engineer for consultation Right leg swelling 09/07/2021 Assessment & Plan (12/20/2023 11:06 AM EDT): - senior training specialist' impression is lymphedema - pain may be due to musculoskeletal pathology - currently using bumetanide 0.5 mg daily Assessment & Plan (08/11/2023 10:04 AM EDT): - senior training specialist' impression is lymphedema - pain may be due to musculoskeletal pathology - currently using bumetanide 0.5 mg daily Assessment & Plan (04/17/2023 11:38 AM EST): - senior training specialist' impression is lymphedema - pain may be [...] insufficiency of leg 08/26/2016 Assessment & Plan (10/24/2024 8:40 AM EDT): -Bilateral, more symptomatic on right than left -Evaluated by [facility] Vascular service -Evaluated by [facility] Vascular service, last seen in August 2024, annual. No significant venous reflux. Dx lymphedema. Continue conservative management with compression stockings Treatment Hx: -leg elevation; Unna boots; compression stocking -Microphlebectomy of right leg in 2017 -03/18/22 endovenous radiofrequency ablation of right great saphenous vein -Continue compression stocking, leg elevation Assessment & Plan (06/26/2024 9:00 AM EST): -Bilateral, more symptomatic on right than left -Evaluated by [facility] Vascular service -Evaluated by [facility] Vascular service, last seen on 09/07/23. No significant venous reflux. Dx lymphedema. Continue conservative management with compression stockings Treatment Hx: -leg elevation; Unna boots; compression stocking -Microphlebectomy of right leg in 2017 -03/18/22 endovenous radiofrequency ablation of right great saphenous vein -Continue compression stocking, leg elevation Assessment & Plan (12/20/2023 12:06 PM EDT): -Bilateral, more symptomatic on right than left -Evaluated by [facility] Vascular service -Evaluated by [facility] Vascular service, last seen on 09/07/23. No significant venous reflux. Dx lymphedema. Continue conservative management with compression stockings Treatment Hx: -leg elevation; Unna boots; compression stocking -Microphlebectomy of right leg in 2017 -03/18/22 endovenous radiofrequency ablation of right great saphenous vein -Continue compression stocking, leg elevation Assessment & Plan (08/22/2023 5:09 AM EDT): -Bilateral, more symptomatic on right than left -Evaluated by [facility] Vascular service -Evaluated by [facility] Vascular service, last seen on 03/07/23. No significant venous reflux. Dx lymphedema. Continue conservative management. Treatment Hx: -leg elevation; Unna boots; compression stocking -Microphlebectomy of right leg in 2017 -03/18/22 endovenous radiofrequency ablation of right great saphenous vein -Continue compression stocking, leg elevation Assessment & Plan (04/17/2023 11:31 AM EST): -Bilateral, more symptomatic on right than left -Evaluated by [facility] Vascular service -Evaluated by [facility] Vascular service, last seen on 03/07/23. No significant venous reflux. Dx lymphedema. Continue conservative management. Treatment Hx: -leg elevation; Unna boots; compression stocking -Microphlebectomy of right leg in 2018 -03/18/22 endovenous radiofrequency ablation of right great saphenous vein -Continue compression stocking, leg elevation Assessment & Plan (12/06/2022 10:31 AM EDT): -Bilateral, more symptomatic on right than left -Followed by [facility] Vascular service -Recently seen by [facility] Vascular service, 11/15/22. Advised to continue current treatment. No additional evalaution or treatment suggested. -No change in treatment plan. Treatment Hx: -leg elevation; Unna boots; compression stocking -Microphlebectomy of right leg in 2017 -03/18/22 endovenous radiofrequency ablation of right great saphenous vein -Continue compression stocking, leg elevation Assessment & Plan (09/22/2022 12:40 PM EDT): -Bilateral, more symptomatic on right than left -Followed by [facility] Vascular service, last seen by Dr. Lorenzo on 04/08/22 Treatment Hx: -leg elevation; Unna boots; compression stocking -Microphlebectomy of right leg in 2017 -03/18/22 endovenous radiofrequency ablation of right great saphenous vein -Continue compression stocking, leg elevation Assessment & Plan (06/27/2022 6:03 AM EST): -Bilateral, more symptomatic on right than left -Followed by [facility] Vascular service, last seen by Dr. Lorenzo [...] 09/15/2015 Urinary incontinence 09/15/2015 Assessment & Plan (10/24/2024 8:42 AM EDT): - mixed - previously followed by [facility] Urogyn. S/p prolapse repair - currently following with [facility] Uro for overactive bladder. Last seen in July 2024. Continue Gemtesa and estrace. - pt needs incontinence supply Assessment & Plan (12/20/2023 11:06 AM EDT): - mixed - previously followed by [facility] Urogyn. S/p prolapse repair - currently following with [facility] for overactive bladder - pt needs incontinence supply Assessment & Plan (04/17/2023 11:35 AM EST): - mixed - previously followed by [facility] Urogyn. S/p prolapse repair - currently following with [facility] Uro for overactive bladder - pt needs [...] 9:00 AM EST): - previously followed by railcar foreman - mildly abnormal stress test in 2012, inferior wall ischemia - continue rosuvastatin, ASA, and metoprolol - continue isosorbide for chest pain - continue working on lifestyle modification Assessment & Plan (12/20/2023 11:05 AM EDT): - previously followed by railcar foreman - mildly abnormal stress test in 2012, inferior wall ischemia - continue rosuvastatin, ASA, and metoprolol - continue isosorbide for chest pain - continue working on lifestyle modification Assessment & Plan (04/17/2023 11:34 AM EST): - previously followed by railcar foreman - mildly abnormal stress test in 2012, inferior wall ischemia - continue rosuvastatin, ASA, and metoprolol - continue isosorbide for chest pain - continue working on lifestyle modification Assessment & Plan (12/06/2022 10:31 AM EDT): - previously followed by railcar foreman - mildly abnormal stress test in 2012, inferior wall ischemia - continue rosuvastatin, ASA, and metoprolol - continue isosorbide for chest pain - continue working on lifestyle modification Assessment & Plan (2022 5:50 PM EST): - previously followed by railcar foreman - mildly abnormal stress test in 2012, inferior wall ischemia - continue rosuvastatin, ASA, and metoprolol - continue isosorbide for chest pain - continue working on lifestyle modification Essential hypertension 02/10/2015 Assessment & Plan (10/24/2024 8:40 AM EDT): -Goal BP< 130/80 per ACC/AHA guideline -continue working on lifestyle modification -continue monitoring BP at home -continue metoprolol succinate 25 mg daily -continue isosorbide 60 mg daily -continue bumetanide 0.5 mg daily for mainly leg swelling -continue checking home BP and HR - Ordered Comprehensive Metabolic Panel 06/26/24 - Ordered Albumin, Random Urine W/Creatinine 06/26/24 Assessment & Plan (06/27/2024 12:26 AM EST): [...] Problem Noted Date Diagnosed Date Resolved Date Cellulitis 03/07/2024 10/24/2024 Assessment & Plan (06/26/2024 12:15 PM EST): [...] wound care - Patient is traveling to [place] tomorrow with few dressing supplies, that will last for 7-10 days. - Her daughter agreed to peanut picker wound supply and send to the patient in [place] - Given Rx Augmentin, in case her [...] or worse got to the emergency room Acute left-sided low back pa in without sciatica 11/30/2022 04/11/2023 Cellulitis of right leg 09/22/202205/2022 Assessment & Plan (10/02/2022 6:40 PM EDT): Seen in ED on 09/16/22 -was prescribed Doxycycline -advised to complete treatment and follow up with ID specialist as scheduled Encounters Date Type Department Care Team Description 12/23/2024 Refill [facility] MEDICINE [address] [place] [address] Ashley Garza MD 11/18/2024 Refill [facility] MEDICINE [address] [place] [address] Katelin Shaw MD 11/07/2024 Refill [facility]IC[facility] [address] [place] [address] Yolanda Martin MD 11/07/2024 Refill [facility]IC[facility] [address] [place] [address] Katelin Shaw MD 10/19/2024 Refill [facility] [address] [place] [address] Yolanda Martin MD 10/19/2024 Refill [facility] MEDIC[facility] [address] [place] [address] Katelin Shaw MD 10/15/2024 11:15 AM EDT Office Visit [facility] [address] [place] [phone] Katelin Shaw MD Venous insufficiency of leg (Primary Dx); Stasis dermatitis; Essential hypertension; Dyslipidemia; Mixed stress and urge urinary incontinence; History of recurrent UTI (urinary tract infection); Lymphedema; Colon cancer screening; Screening for colon cancer 10/15/2024 Travel 10/10/2024 Telephone [facility] [address] [place] [address] Katelin Shaw MD chart prep 10/04/2024 Refill [facility] [address] [place], [place] [phone] Katelin Shaw MD from Last 3 Months Immunizations Immunization Administration Dates Next Due Influenza High-dose Quadriva [...] Sign Reading Time Taken Comments Blood Pressure 138/80 10/15/2024 12:02 PM EDT Pulse 76 10/15/2024 11:49 AM EDT Temperature 36.2 C (97.2 F) 10/15/2024 11:49 AM EDT Respiratory Rate 18 10/15/2024 11:49 AM EDT Oxygen Saturation 97% 06/26/2024 11:37 AM EST Inhaled Oxygen Concentration - - Weight 79 kg (174 lb 3.2 oz) 10/15/2024 11:49 AM EDT Height 154.9 cm (5' 1 ) 10/15/2024 11:49 AM EDT Body Mass Index 32.91 10/15/2024 11:49 AM EDT Plan of Treatment Health Maintenance [...] Additional history exists SDOH Screening 12/19/2024 12/20/2023 Influenza Vaccine (#1) 2024 , 01/26/2023, 01/31/2022, Additional history exists Colorectal Cancer Screening 01/06/2025 FIT DNA/Cologuard 01/06/2025 01/06/2022 Alcohol/Substance Use Screening 04/12/2025 04/12/2024 Depression Screening 04/12/2025 04/12/2024, 08/11/19 Tobacco Screening 10/15/2025 10/15/2024 Dental X-Ray: Full Mouth 12/22/2025 12/21/2022 Mammogram 03/28/2026 03/28/2024, 03/02, 03/09/2022, Additional history exists Lipid Panel 09/03/2029 09/03/2024, 07/01, 07/19/2022, Additional history exists DTaP/Tdap/Td Vaccines (3 - Td or Tdap) 12/18/2031 12/17/2021, 06/25/2011, 12/18/2007, Additional history exists Pneumococcal Vaccine: 50+ Years Completed 01/17/2019, 02/04/2017, 08/18/2011, Additional history exists Zoster Vaccines Completed 02/18/2022, 11/30, 02/23/2021, Additional history exists HIB Vaccines Aged Out [...] patient's age to complete this topic Meningococcal B Vaccine Aged Out No l onger eligible based on patient's age to complete [...] Procedure Name Priority Date/Time Associated Diagnosis Comments LIPID PANEL WITH REFLEX TO DIRECT LDL Routine 09/03/2024 10:28 AM EDT Dyslipidemia BI MAMMOGRAM SCREENING TOMOSYNTHESIS BILATERAL Routine 03/28/2024 9:45 AM EST PANORAMIC RADIOGRAPHIC IMAGE Routine 12/21/2022 10:00 AM EDT PERIODIC ORAL EVALUATION - ESTABLISHED PATIENT Routine 12/21/2022 10:00 AM EDT PROPHYLAXIS - ADULT Routine 10/05/2013 1 2:00 AM EDT from Last 3 Months or Most Recently Relevant to Health Maintenance Results * Lipid Panel with Reflex to Direct LDL (09/03/2024 10:28 AM EDT) Triglycerides 88 <150 mg/dL [facility] Comment:Desirable Triglyceri de: less than 150 mg/dLBorderline High Triglyceride 150-199 mg/dLHigh Triglyceride: 200-499 mg/dLVery High Triglyceride: greater than or equal to 5OO mg/dL Cholesterol 110 <200 mg/dL [facility] Comment:Desirable Cholestero l: less than 200 mg/dLBorderline High Cholesterol: 200-239 mg/dLHigh Cholesterol: greater than 239 mg/dL LDL Cholesterol Calculated 48 <100 mg/dL [facility] Comment:Desirable LDL: less than 100 mg/dLNear Optimal/Above Optimal LDL: 110- 129 mg/dLBorderline High LDL: 130-159 mg/dLHigh LDL: 160-189 mg/dLVery High LDL: greater than or equal to 190 mg/dL HDL Cholesterol 45 >40 mg/dL [facility] Comment:Desirable HDL: great er than 40 mg/dL Note: This HDL assay may give artificially low results in patients with liver disease. Blood 09/03/2024 10:2 8 AM EDT 09/03/2024 11:27 AM EDT us Katelin Shaw MD LAB BLOOD ORDERABLES Final Resul t [facility] [address] [place] [phone] * BI Mammogram Screening Tomosynthesis Bilateral (03/28/2024 9:45 AM EST) Anatomical Region Laterality Modality Breast Bilateral Mammography 03/28/2024 9:45 AM EST Narrative 04/06/2024 9:14 AM EST [address] [place] [address] Mammography Report Signed Patient: Ariana Martinez MR#: [id number] : 1950 Acct:[id number] Age/Sex: 73 / F ADM Date: 03/28/24 Loc: HO.MAMMO Attending Dr: Katelin Shaw MD Ordering Physician: Katelin Shaw MD Results: 1Negative Date of Service: 03/28/24 Follow Up: 1 Year From Orig inal Mammogram Procedure(s): MM tomosynthesis screening BI Accession Number(s): [id number] cc: Katelin Shaw MD EXAMINATION: MM SCREENING [...] 04/06/24 0911 DD/ 0945 TD/TT: 03/28/24 1000 Dry Cell Sealer: Procedure Note Donotuseinterpreter, Image - 04/06/2024 [facility] [address] [place] [address] Mammography Report Signed Patient: Ivelisse Martinez#: [id number] : 2Acct:[id number] Age/Sex: 73 / FADM Date: 03/28/24 Loc: MICHELLE Attending Dr: Katelin Shaw MD Ordering Physician: Katelin Shaw MDResults: 1Negative Date of Service: 03/28/24Follow Up: 1 Year From Orig inal Mammogram Procedure(s): MM tomosynthesis screening BI Accession Number(s): [id number] cc: Katelin Shaw MD EXAMINATION: MM SCREENING [...] signed by Polly Connelly DO in OV> 04/06/2411 DD/ TD/TT: 03/28/24 1000 Dry Cell Sealer: Katelin Shaw MD IMG BI PROCEDURES Edited Result - Final from Last 3 Months or Most Recently Relevant to Health Maintenance Insurance [address] [place] [id number] [facility]-SNP[facility] GAUTAM RANGEL [id number] [place] [phone] [facility] [address] [place] [phone] Care Teams Superintendent Colliery Relationship Specialty Start Date End Date Katelin Shaw MD [address] [place] [phone] PCP - General Family Medicine 01/05/13
--- OUTSIDE RECORDS SUMMARY | 2024-12-28 13:03 | XMS_ITS | Encounter Summary ---
Author Organization [employer] Address [address] [facility] [address]t [place] [address] Care Team Providers Care Clinical Academic Allergist Name Role Phone Katelin Shaw MD Primary Care Provider [phone] Reason for Visit * Reason Comments Med Refill Encounter Details Date Type Department Care Team ([facility] st Contact Info) Description 12/23/2024 Refill [facility] [address] [place], [place] [phone] Ashley Garza MD [address] [place], [place] [phone] Social History Tobacco Use Types Packs/Day Years [...] documented as of this encounter Care Teams Clinical Academic Allergist Relationship Specialty Start Date End Date Katelin Shaw MD [address] [place] [phone] PCP - General Family Medicine 01/05/13 documented as of this encounter
--- OUTSIDE RECORDS SUMMARY | 2024-12-28 13:03 | XMS_ITS | Encounter Summary ---
Author Organization [employer] Address [address] [place] [address] 7t [place] [address] Care Team Providers Care Career Center Director Name Role Phone Katelin Shaw MD Primary Care Provider [phone] Encounter Details Date Type Department Care Team (Late st Contact Info) Description 05/07/[address] [facility] [address] [place] [address] Keli Rodriguez, RN [address] [place] [address] Social History Tobacco Use Types Packs/Day Years [...] on filedocumented in this encounter Care Teams Career Center Director Relationship Specialty Start Date End Date Katelin Shaw MD [address] [place], [place] [phone] PCP - General Family Medicine 01/05/13 documented as of this encounter
--- OUTSIDE RECORDS SUMMARY | 2024-12-28 13:03 | XMS_ITS | Encounter Summary ---
Author Organization [employer] Address [address] [place] [address] [address] [place] [address] Care Team Providers Care Monument Installer Name Role Phone Katelin Shaw MD Primary Care Provider [phone] Encounter Details Date Type Department Care Team (Late st Contact Info) Description 06/10/2022 Orders Only [facility] [address], [place] [id number] Katelin Shaw MD [address] [place] [address] Essential hypertension (Primary Dx); Gout, unspecified cause, [...] glucose documented in this encounter Care Teams Monument Installer Relationship Specialty Start Date End Date Katelin Shaw MD [address] [place] [id number] PCP - General Family Medicine 01/05/13 documented as of this encounter
== END 2024-12-28 12:43 | disposition home or self-care (01) ==
LOC: HO.US 12:42
PROVIDERS: PCP Family Medicine; Visit Provider Nurse Practitioner Family
DX: N39.0 Urinary tract infection, site not specified (principal); R39.9 Unspecified symptoms and signs involving the genitourinary system; N39.41 Urge incontinence
CPT/HCPCS: 76770

== ENCOUNTER → 2024-12-28 12:43 | Outpatient (BNV) | payer OTHER, SELFPAY | PROVIDERS: PCP Family Medicine; Visit Provider Radiology Diagnostic Radiology | DX: N39.0 Urinary tract infection, site not specified (principal) | CPT/HCPCS: 76770 ==

== ENCOUNTER 2025-01-21 07:57 | Outpatient (AMB) | payer OTHER, SELFPAY ==
--- OUTSIDE RECORDS SUMMARY | 2025-01-21 08:00 | XMS_ITS | Clinical Summary ---
Author Organization [employer] Address [address] [place] [address] 7[address] [place] [address] Care Team Providers Care Cleaning Validation Consultant Name Role Phone Katelin Shaw MD Primary Care Provider [phone] Allergies Active Allergy Reactions Criticality Noted Date [...] MG EC tabletIndicatio ns:Coronary artery disease involving [place] heart without angina pectoris, unspecified vessel or [...] (12/25/2023 4:01 PM EDT): - following with [facility] Urogyn and [facility] Uro - Continue Gemtesa and Estrace Left [...] however patient states that her insurance company, [employer], suggested that patient should get prescription Stasis dermatitis 08/22/2023 Assessment & Plan (10/24/2024 8:40 AM EDT): - seen by vascular specialist; no significant venous insufficiency; Dx lymphedema - recurrent redness despite Tx for cellulitis multiple times - seen by center line cutter operator; Dx stasis dermatitis. Rx betamethasone ointment - improving and stable Assessment & Plan (08/22/2023 5:11 AM EDT): - seen by vascular specialist; no significant venous insufficiency; Dx lymphedema - recurrent redness despite Tx for cellulitis multiple times - seen by center line cutter operator; Dx stasis dermatitis. 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 Rx TMP/SMX. - continue Estrace cream - continue d-mannose supplement, vitamin C, adequate fluid intake and behavioral therapy - prevent constipation Lymphedema 04/11/2023 Assessment & Plan (10/24/2024 8:44 AM EDT): - following with [facility] vascular specialist, last seen in August 2024, annual follow up. - Continue compression, leg elevation, and fluid balance - Continue pneumatic compression device Assessment & Plan (06/26/2024 12:14 PM EST): - following with [facility] vascular specialist, last seen in Mar 2024 - Continue compression, leg elevation, and fluid balance - Continue pneumatic compression device Assessment & Plan (04/12/2024 1:17 PM EST): - following with [facility] vascular specialist, last seen in Mar [...] -pt has known venous insufficiency -Evaluated by office technology professor, and recommended to wear comfortable shoes -Tried and completed PT. -Encouraged to follow instructions by orthopedist, vascular specialist, and office technology professor -Advised to reschedule appt with orthopedist and [...] -pt has known venous insufficiency -Evaluated by office technology professor, and recommended to wear comfortable shoes -Tried and completed PT. -Encouraged to follow instructions by orthopedist, vascular specialist, and office technology professor -Advised to reschedule appt with orthopedist and [...] -pt has known venous insufficiency -Evaluated by office technology professor, and recommended to wear comfortable shoes -Tried and completed PT. -Encouraged to follow instructions by orthopedist, vascular specialist, and office technology professor -Advised to reschedule appt with orthopedist and [...] insufficiency -Followed by [facility] provider -Followed by office technology professor, and recommended to wear comfortable shoes -Tried and completed PT. -Encouraged to follow instructions by orthopedist, vascular specialist, and office technology professor Assessment & Plan (10/02/2022 6:39 PM EDT): -X-ray demonstrated degenerative changes of ankle and midfoot. Pes planus alignment -pt has known venous insufficiency -Evaluated by office technology professor, and recommended to wear comfortable shoes -Tried and completed PT. -Encouraged to follow instructions by orthopedist, vascular specialist, and office technology professor -Advised to reschedule appt with orthopedist and [...] provider, last seen in 2021 -Evaluated by office technology professor, and recommended to wear comfortable shoes -Tried and completed PT. -Encouraged to follow instructions by orthopedist, vascular specialist, and office technology professor -Advised to reschedule appt with orthopedist and encouraged to contact specialists if pt is still having problems -evaluate with MRI Overactive bladder 06/27/2022 Assessment & Plan (12/25/2023 4:01 PM EDT): -s/p pelvic organ prolapse organ repair twice, most recently in Jun 2021 with midurethral sling -pt was following with [facility] uroGYN, last seen on 08/28/23, no UTI since surgery and new regimen -Pt is following / [facility] Urologist, recently seen on 09/20/23 -continue current medications, Gemtesa and vaginal estrogen Assessment & Plan (04/17/2023 11:37 AM EST): -s/p pelvic organ prolapse organ repair twice, most recently in Jun 2021 with midurethral sling -pt was following with [facility] uroGYN, last seen on 10/21/21, no UTI since surgery and new regimen -Pt is following w/ [facility] Urologist, recently seen on 03/22/23 -continue current [...] not have f/u, will refer her to nature photographer for consultation Right leg swelling 09/07/2021 Assessment & Plan (12/20/2023 11:06 AM EDT): - white metal caster' impression is lymphedema - pain may be due to musculoskeletal pathology - currently using bumetanide 0.5 mg daily Assessment & Plan (08/11/2023 10:04 AM EDT): - white metal caster' impression is lymphedema - pain may be due to musculoskeletal pathology - currently using bumetanide 0.5 mg daily Assessment & Plan (04/17/2023 11:38 AM EST): - white metal caster' impression is lymphedema - pain may be [...] symptomatic on right than left -Evaluated by [facility] Vascular service -Evaluated by [facility] Vascular service, last seen in August [...] symptomatic on right than left -Evaluated by [facility] Vascular service -Evaluated by [facility] Vascular service, last seen on 09/07/23. No significant venous reflux. Dx lymphedema. Continue conservative management with compression stockings Treatment Hx: -leg elevation; Unna boots; compression stocking -Microphlebectomy of right leg in 2017 -03/18/22 endovenous radiofrequency ablation of right great saphenous vein -Continue compression stocking, leg elevation Assessment & Plan (12/20/2023 12:06 PM EDT): -Bilateral, more symptomatic on right than left -Evaluated by [facility] Vascular service -Evaluated by [facility] Vascular service, last seen on 09/07/23. No significant venous reflux. Dx lymphedema. Continue conservative management with compression stockings Treatment Hx: -leg elevation; Unna boots; compression stocking -Microphlebectomy of right leg in 2017 -03/18/22 endovenous radiofrequency ablation of right great saphenous vein -Continue compression stocking, leg elevation Assessment & Plan (08/22/2023 5:09 AM EDT): -Bilateral, more symptomatic on right than left -Evaluated by [facility] Vascular service -Evaluated by [facility] Vascular service, last seen on 03/07/23. No significant venous reflux. Dx lymphedema. Continue conservative management. Treatment Hx: -leg elevation; Unna boots; compression stocking -Microphlebectomy of right leg in 2017 -03/18/22 endovenous radiofrequency ablation of right great saphenous vein -Continue compression stocking, leg elevation Assessment & Plan (04/17/2023 11:31 AM EST): -Bilateral, more symptomatic on right than left -Evaluated by [facility] Vascular service -Evaluated by [facility] Vascular service, last seen on 03/07/23. No significant venous reflux. Dx lymphedema. Continue conservative management. Treatment Hx: -leg elevation; Unna boots; compression stocking -Microphlebectomy of right leg in 2018 -03/18/22 endovenous radiofrequency ablation of right great saphenous vein -Continue compression stocking, leg elevation Assessment & Plan (12/06/2022 10:31 AM EDT): -Bilateral, more symptomatic on right than left -Followed by [facility] Vascular service -Recently seen by [facility] Vascular service, 11/15/22. Advised to continue [...] symptomatic on right than left -Followed by [facility] Vascular service, last seen by Dr. Lorenzo on 04/08/22 Treatment Hx: -leg elevation; Unna boots; compression stocking -Microphlebectomy of right leg in 2017 -03/18/22 endovenous radiofrequency ablation of right great saphenous vein -Continue compression stocking, leg elevation Assessment & Plan (06/27/2022 6:03 AM EST): -Bilateral, more symptomatic on right than left -Followed by [facility] Vascular service, last seen by Dr. Lorenzo [...] EDT): - mixed - previously followed by [facility] Urogyn. S/p prolapse repair - currently following with [facility] Uro for overactive bladder. Last seen in July 2024. Continue Gemtesa and estrace. - pt needs incontinence supply Assessment & Plan (12/20/2023 11:06 AM EDT): - mixed - previously followed by [facility] Urogyn. S/p prolapse repair - currently following with [facility] for overactive bladder - pt needs incontinence supply Assessment & Plan (04/17/2023 11:35 AM EST): - mixed - previously followed by [facility] Urogyn. S/p prolapse repair - currently following with [facility] Uro for overactive bladder - pt needs [...] 9:00 AM EST): - previously followed by pointer machine operator - mildly abnormal stress test in 2012, inferior wall ischemia - continue rosuvastatin, ASA, and metoprolol - continue isosorbide for chest pain - continue working on lifestyle modification Assessment & Plan (12/20/2023 11:05 AM EDT): - previously followed by pointer machine operator - mildly abnormal stress test in 2012, inferior wall ischemia - continue rosuvastatin, ASA, and metoprolol - continue isosorbide for chest pain - continue working on lifestyle modification Assessment & Plan (04/17/2023 11:34 AM EST): - previously followed by pointer machine operator - mildly abnormal stress test in 2012, inferior wall ischemia - continue rosuvastatin, ASA, and metoprolol - continue isosorbide for chest pain - continue working on lifestyle modification Assessment & Plan (12/06/2022 10:31 AM EDT): - previously followed by pointer machine operator - mildly abnormal stress test in 2012, inferior wall ischemia - continue rosuvastatin, ASA, and metoprolol - continue isosorbide for chest pain - continue working on lifestyle modification Assessment & Plan (2022 5:50 PM EST): - previously followed by pointer machine operator - mildly abnormal stress test in 2012, [...] wound care - Patient is traveling to [place] tomorrow with few dressing supplies, that will last for 7-10 days. - Her daughter agreed to fish bait picker wound supply and send to the patient in [place] - Given Rx Augmentin, in case her [...] 11/30/2022 04/11/2023 Cellulitis of right leg 09/22/2022 0805/2022 Assessment & Plan (10/02/2022 6:40 PM EDT): Seen in ED on 09/16/22 -was prescribed Doxycycline -advised to complete treatment and follow up with ID specialist as scheduled Encounters Date Type Department Care Team Description 12/28/2024 Orders Only [facility] External Provider, [facility] 12/23/2024 Refill [facility] [address] [place] [address] Ashley Garza MD 11/18/2024 Refill [facility] [address] [place] [address] Katelin Shaw MD 11/07/2024 Refill [facility] [address] [place] [address] Yolanda Martin MD 11/07/2024 Refill [facility] [address] [place] [address] Katelin Shaw MD from Last 3 Months [...] your housing situation today? I have yesenia sing 12/20/[address] you li [...] 10/15/2024 11:49 AM EDT Plan of Treatment Upcoming Encounters Date Type Department Care Team (Late st Contact Info) Description 02/26/2025 10:30 AM EDT Office Visit [facility] [address] [place] [address] Katelin Shaw MD [address] [place] [address] Health Maintenance Due Date Last Done Comments CT Colonography 1950 Colonoscopy 1950 Dental X-Ray: Bitewings 1950 FIT 1950 Sigmoidoscopy 1950 Hepatitis C Screening 1969 RSV Patients and Patients Aged 60 years or older (1 - Risk 60-74 years 1-dose series) 2011 Dental Prophylaxis 04/07/2014 10/05/2013 Dental Oral Exam 06/24/2023 12/21/2022, 01/05/2013 SDOH Screening 12/19/2024 12/20/2023 COVID-19 Vaccine ( season) 2024 08/11/2023, 03/30/2022, 02/23/2021, Additional history exists Influenza Vaccine (#1) 2024 , 01/26/2023, 01/31/2022, Additional history exists Alcohol/Substance Use Screening 04/12/2025 04/12/2024 Depression Screening 04/12/2025 04/12/2024, 08/11/19 Tobacco Screening 10/15/2025 10/15/2024 Dental X-Ray: Full Mouth 12/22/2025 12/21/2022 FOBT 01/15/2026 01/15/2025, 01/06/2022 Mammogram 03/28/2026 03/28/2024, 03/02, 03/09/2022, Additional history exists Colorectal Cancer Screening 01/16/2028 FIT DNA/Cologuard 01/16/2028 01/15/2025, 01/06/2022 Lipid Panel 09/03/2029 09/03/2024, 07/01, 07/19/2022, Additional [...] Procedure Name Priority Date/Time Associated Diagnosis Comments LAB COLOGUARD COLON CANCER SCREEN Routine 01/15/2025 10:50 AM EDT Screening for colon cancer US RETROPERITONEAL COMPLETE Routine 12/28/2024 12:59 PM EDT LIPID PANEL WITH REFLEX TO DIRECT LDL [...] Recently Relevant to Health Maintenance Results * Cologuard?? colon cancer screening (01/15/2025 10:50 AM EDT) Cologuard Result Negative Negative 01/21/20 25 1:15 AM EDT [facility] (CLIA #:[id number]) Comment: The Cologuard (TM) test was performed on this specimen. NEGATIVE TEST RESULT. A negative Cologuard result indicates a low likelihood that a colorectal cancer (CRC) or advanced adenoma (adenomatous polyps with more advanced pre-malignant features) is present. The chance that a person with a negative Cologuard test has a colorectal cancer is less than 1 in 1500 (negative predictive value >99.9%) or has an advanced adenoma is less than 5.3% (negative predictive value 94.7%). These data are based on a prospective cross-sectional study of 10,000 individuals at average risk for colorectal cancer who were screened with both Cologuard and colonoscopy. (Jeanne Hill al, N Engl J Med 2014;370(14):1286- 1297) The normal value (reference range) for this assay is negative. COLOGUARD RE-SCREENING RECOMMENDATION: Periodic colorectal cancer screening is an important part of preventive healthcare for asymptomatic individuals at average risk for colorectal cancer. Following a negative Cologuard result, the [place] Cancer Society and U.S. Multi-Society Task Force screening guidelines recommend a Cologuard re-screening interval of 3 years. References: [place] Cancer Society Guideline for Colorectal Cancer Screening: https://www.cancer.org/cancer/ahflg-yumxhj-zrgmhz/quukaoebg-rktohddgo-hmblqir/ac s-rec ommendations.html.; Jeff DK, George ROSAS, Vikram PulidoK, Colorectal Cancer Screening: Recommendations for Physicians and Patients from the U.S. Multi-Society Task Force on Colorectal Cancer Screening , Am J Gastroenterology 2017; 112:3873-2828. TEST DESCRIPTION: Composite algorithmic analysis of stool DNA-biomarkers with hemoglobin immunoassay. Quantitative values of individual biomarkers are not reportable and are not associated with individual biomarker result reference ranges. Cologuard is intended for colorectal cancer screening of adults of either sex, 45 years or older, who are at average-risk for colorectal cancer (CRC). Cologuard has been approved for use by the U.S. FDA. The performance of Cologuard was established in a cross sectional study of average-risk adults aged 50-84. Cologuard performance in patients ages 45 to 49 years was estimated by sub-group analysis of near-age groups. Colonoscopies performed for a positive result may find as the most clinically significant lesion: colorectal cancer [4.0%], advanced adenoma (including sessile serrated polyps greater than or equal to 1cm diameter) [20%] or non- advanced adenoma [31%]; or no colorectal neoplasia [45%]. These estimates are derived from a prospective cross-sectional screening study of 10,000 individuals at average risk for colorectal cancer who were screened with both Cologuard and colonoscopy. (Jeanne Hill al, N Engl J Med 2014;370(14):2857-9794.) Cologuard may produce a false negative or false positive result (no colorectal cancer or precancerous polyp present at colonoscopy follow up). A negative Cologuard test result does not guarantee the absence of CRC or advanced adenoma (pre-cancer). The current Cologuard screening interval is every 3 years. ([place] Cancer Society and U.S. Multi-Society Task Force). Cologuard performance data in a 10,000 patient pivotal study using colonoscopy as the reference method can be accessed at the following location: www.[employer].Inside Secure/results. Additional description of the Cologuard test process, warnings and precautions can be found at www.[employer].Inside Secure. Stool specimen (specimen) 01/15/2025 10:50 AM EDT 01/16/2025 12:09 PM EDT Katelin Shaw MD LAB MOLECULAR DIAGNOSTICS ORDERA BLES Final Result [facility] (CLIA #:[id number]) [address] [place] [address], * US Retroperitoneal Complete (12/28/2024 12:59 PM EDT) Anatomical Region Laterality Modality Ultrasound 12/28/2024 12:5 9 PM EDT Narrative 12/28/2024 1:25 PM EDT [place] [address] Ultrasound Report Signed Patient: Ariana Martinez MR#: [id number] : 1950 Acct:[id number] Age/Sex: 74 / F ADM Date: 12/28/24 Loc: . Attending Dr: Tova DELAROSA Ordering Physician: Tova Alcantara Date of Service: 12/28/24 Procedure(s): US retroperitoneal comp Accession Number(s): [id number] cc: Tova Alcantara; Katelin Shaw MD EXAMINATION: US RETROPERITONEAL COMPLETE (RENAL) CLINICAL INFORMATION: Urinary tract infection.. COMPARISON: None available. TECHNIQUE: Real-time imaging of the kidneys and bladder. FINDINGS: RIGHT KIDNEY: 8.7 x 5 x 1 x 4.8 cm (SAG x AP x TRV). The kidney is normal in size, contour, and echogenicity. Renal cortical thickness is normal. No calculi or fissures focal parenchymal lesions. No hydronephrosis. There is an upper pole simple cyst measuring 1.0 x 1.2 x 1.2 cm. LEFT KIDNEY: 9.7 x 4.1 x 4.0 cm (SAG x AP x TRV). The kidney is normal in size, contour, and echogenicity. Renal cortical thickness is normal. No calculi or focal parenchymal lesions. No hydronephrosis. BLADDER: Well distended and normal. Bilateral ureteral jets are demonstrated. Prevoid bladder volume is 154 mL. Postvoid bladder volume is 138 mL. US/US retroperitoneal comp IMPRESSION: 1. Essentially normal kidneys bilaterally. 2. Normal appearing urinary bladder. Significant post void residual of estimated 138 mL. Electronically signed by: Madi Jo MD 12/28/2024 01:22 PM EDT Dictated By: Madi Jo MD Signed By: <Electronically signed by Madi Jo MD in OV> 12/28/24 1322 DD/ 1259 TD/TT: 12/28/24 1309 [employer] Lead: Procedure Note Donotuseinterpreter, Image - 12/28/2024 [place] [address] Ultrasound Report Signed Patient: Ivelisse Martinez#: [id number] : 2Acct:[id number] Age/Sex: 74 / FADM Date: 12/28/24 Loc: HO.US Attending Dr: Tova DELAROSA Ordering Physician: Tova Alcantara Date of Service: 12/28/24 Procedure(s): US retroperitoneal comp Accession Number(s): [id number] cc: Tova Alcantara; Katelin Shaw MD EXAMINATION: US RETROPERITONEAL COMPLETE (RENAL) CLINICAL INFORMATION: Urinary tract infection.. COMPARISON: None available. TECHNIQUE: Real-time imaging of the kidneys and bladder. FINDINGS: RIGHT KIDNEY: 8.7 x 5 x 1 x 4.8 cm (SAG x AP x TRV). The kidney is normal in size, contour, and echogenicity. Renal cortical thickness is normal. No calculi or fissures focal parenchymal lesions. No hydronephrosis. There is an upper pole simple cyst measuring 1.0 x 1.2 x 1.2 cm. LEFT KIDNEY: 9.7 x 4.1 x 4.0 cm (SAG x AP x TRV). The kidney is normal in size, contour, and echogenicity. Renal cortical thickness is normal. No calculi or focal parenchymal lesions. No hydronephrosis. BLADDER: Well distended and normal. Bilateral ureteral jets are demonstrated. Prevoid bladder volume is 154 mL. Postvoid bladder volume is 138 mL. US/US retroperitoneal comp IMPRESSION: 1. Essentially normal kidneys bilaterally. 2. Normal appearing urinary bladder. Significant post void residual of estimated 138 mL. Electronically signed by: Madi Jo MD 12/28/2024 01:22 PM EDT Dictated By: Maid Jo MD Signed By: <Electronically signed by Madi Jo MD in OV> 12/28/24 1322 DD/ 1259 TD/TT: 12/28/24 1309 [employer] Lead: us [facility] External Provider IMG US PROCEDURES Final Result * Lipid Panel with Reflex to Direct LDL (09/03/2024 10:28 AM EDT) Triglycerides 88 <150 mg/dL [facility] Comment:Desirable Triglyceri de: less than 150 mg/dLBorderline High Triglyceride 150-199 mg/dLHigh Triglyceride: 200-499 mg/dLVery High Triglyceride: greater than or equal to 5OO mg/dL Cholesterol 110 <200 mg/dL [facility] Comment:Desirable Cholestero l: less than 200 mg/dLBorderline High Cholesterol: 200-239 mg/dLHigh Cholesterol: greater than 239 mg/dL LDL Cholesterol Calculated 48 <100 mg/dL [facility] Comment:Desirable LDL: less than 100 mg/dLNear Optimal/Above Optimal LDL: 110- 129 mg/dLBorderline High LDL: 130-159 mg/dLHigh LDL: 160-189 mg/dLVery High LDL: greater than or equal to 190 mg/dL HDL Cholesterol 45 >40 mg/dL [facility] Comment:Desirable HDL: great er than 40 mg/dL Note: This HDL assay may give artificially low results in patients with liver disease. Blood 09/03/2024 10:2 8 AM EDT 09/03/2024 11:27 AM EDT us Katelin Shaw MD LAB BLOOD ORDERABLES Final Resul t [facility] [address] [place] [address] [phone] * BI Mammogram Screening Tomosynthesis Bilateral (03/28/2024 9:45 AM EST) Anatomical Region Laterality Modality Breast Bilateral Mammography 03/28/2024 9:45 AM EST Narrative 04/06/2024 9:14 AM EST [facility] [address] [place] [address] Mammography Report Signed Patient: Ariana Martinez MR#: [id number] : 1950 Acct:[id number] Age/Sex: 73 / F ADM Date: 03/28/24 Loc: MICHEL[facility] Attending Dr: Katelin Shaw MD Ordering Physician: Katelin Shaw MD Results: 1Negative Date of Service: 03/28/24 Follow Up: 1 Year From Orig ina Mammogram Procedure(s): MM tomosynthesis screening BI Accession Number(s): [id number] cc: Katelin Shaw MD EXAMINATION: MM SCREENING [...] 04/06/24 0911 DD/ 0945 TD/TT: 03/28/24 1000 [employer] Lead: Procedure Note Donotuseinterpreter, Image - 04/06/2024 [facility] [address] [place] [address] Mammography Report Signed Patient: Ivelisse Martinez#: [id number] : 1950cct:[id number] Age/Sex: 73 / FADM Date: 03/28/24 Loc: MICHELLE Attending Dr: Katelin Shaw MD Ordering Physician: Katelin Shaw MDResults: 1Negative Date of Service: 03/28/24Follow Up: 1 Year From Orig ina Mammogram Procedure(s): MM tomosynthesis screening BI Accession Number(s): [id number] cc: Katelin Shaw MD EXAMINATION: MM SCREENING [...] Connelly DO in OV> 04/06/24 0911 DD/ TD/TT: 03/28/24 1000 [employer] Lead: Katelin Shaw MD IMG BI PROCEDURES Edited Result - Final from Last 3 Months or Most Recently Relevant to Health Maintenance Insurance [address] [place] [id number] [facility] [employer] OPTIONS (O D-SNP) GAUTAM RANGEL [id number] [place] [phone] [facility] [address] [place] [phone] [place] [phone] Care Teams Cleaning Validation Consultant Relationship Specialty Start Date End Date Katelin Shaw MD [address] [place] [address] [phone] PCP - General Family Medicine 01/05/13
--- OUTSIDE RECORDS SUMMARY | 2025-01-21 08:00 | XMS_ITS | Encounter Summary ---
Author Organization [employer] [facility] Address [address] [place] [address] 7t [place] [address] Care Team Providers Care Potable Water Treatment Operator Name Role Phone Katelin Shaw MD Primary Care Provider [phone] Encounter Details Date Type Department Care Team (Late st Contact Info) Description 06/10/2022 Orders Only [facility] [address] [place], [place] [phone] Katelin Shaw MD [address] [place] [address] [phone] Essential hypertension (Primary Dx); Gout, unspecified cause, [...] Description 02/26/2025 10:30 AM EDT Office Visit [facility] [address] [place] [address] [phone] Katelin Shaw MD [address] [place] [address] [phone] Scheduled Orders Name Type Priority Associated Diagnoses [...] glucose documented in this encounter Care Teams Potable Water Treatment Operator Relationship Specialty Start Date End Date Katelin Shaw MD [address] [place] [phone] PCP - General Family Medicine 01/05/13 documented as of this encounter
--- OUTSIDE RECORDS SUMMARY | 2025-01-21 08:00 | XMS_ITS | Encounter Summary ---
Author Organization [facility] Address [address] [place] [address] 7 [place] [address] Care Team Providers Care Small Machine Bindery Operator Name Role Phone Katelin Shaw MD Primary Care Provider [phone] Encounter Details Date Type Department Care Team (Late st Contact Info) Description 05/07/2022 Orders Only [facility] [address] [place] [phone] Keli Rodriguez RN [address] [place] [address] Social History Tobacco Use Types Packs/Day Years [...] Description 02/26/2025 10:30 AM EDT Office Visit [facility] [address] [place] [phone] Katelin Shaw MD [address] [place] [phone] documented as of this encounter Visit Diagnoses Not on filedocumented in this encounter Care Teams Small Machine Bindery Operator Relationship Specialty Start Date End Date Katelin Shaw MD [address] [place] [address] [phone] PCP - General Family Medicine 01/05/13 documented as of this encounter
--- NOTE | 2025-01-21 08:03 | MHC.OFFVIS ---
Intake Visit Reasons: ultrasound scheduled 12/28/24 Intake Note: patient presents today for: follow up US urology medications: estradiol, vibegron, allopurinol blood thinners: aspirin imaging done: 12/28/24 today's PVR: 159 Resource Center Teacher Required: Yes Resource Center Teacher Services: Resource Center Teacher Present Resource Center Teacher Name: Tom [phone] Accompanied by: Self / Same As Patient Allergies progesterone (Progesterone) Allergy (Mild, Verified 01/21/25 08:29) SWELLING, itching and swelling, body edema quinapril (Accupril) Allergy (Unknown, Verified 01/21/25 08:29) Unknown Medication List - Last Reconciled 01/21/25 by SOLO Jiménez-JAMISON acetaminophen 500 - 1,000 mg PO Q8H PRN allopurinol 100 mg PO DAILY amlodipine 10 mg PO DAILY aspirin 81 mg PO DAILY bacitracin 1 appl topical BID bumetanide 0.5 mg PO DAILY cholecalciferol (vitamin D3) 25 mcg PO DAILY diclofenac sodium 1% 2 grams topical BID PRN estradiol 0.01%(0.1mg/gram) (Estrace) 1 g vaginal 3XW 90 days fluocinolone 0.025% 1 appl topical BID isosorbide mononitrate ER 60 mg PO DAILY metoprolol succinate ER 25 mg PO DAILY metronidazole 500 mg PO TID 7 days nystatin 500,000 units PO TID 7 days omega-3 fatty acids-fish oil 340-1,000 mg 1 cap PO DAILY rosuvastatin 5 mg PO BEDTIME sertraline 25 mg PO DAILY sertraline 50 mg PO DAILY vibegron (Gemtesa) 75 mg PO DAILY HPI Comments Details: Ariana is a pleasant 74-year-old Sami-speaking female patient of Dr. Renteria. She has a past medical history of venous insufficiency, hypertension, coronary artery disease, angina, and urgency incontinence. She presents to the office today for follow-up of her lower urinary tract symptoms (urinary urgency, urinary frequency, urge incontinence) as well as her recurrent urinary tract infections. In discussion with the patient today she reports compliance with Gemtesa and Estrace cream as prescribed. She reports feeling Gemtesa has been helpful in treatment of her lower urinary tract symptoms however she does continue to experience episodes of urge incontinence after administration/consumption of her Lasixs. We discussed importance of timed/scheduled voiding given patients decreased mobility. We discussed correlation of lower urinary tract symptoms after consumption of Lasix. In office urinalysis results were reviewed with the patient today 3+ leukocytes negative nitrates. When asked she currently denies any UTI like symptoms. She denies hematuria, dysuria, foul smelling urine, changes to urinary stream, flank pain, fever, and or chills. During last office visit urine was sent for microgen as patient was noted to have positive nitrates: Microgen 08/23: E coli, Enterobacter hormaechei, lactobacillus gasseri, prevotella timonensis, aerococcus urinae, prevotella bivia, gardnerella. Ashly also present Urine culture: 03/24 lactobacillus species, 03/25 coag-negative Staphylococcus, 05/25 ecoli She has since completed Bactrim as well as Flagyl. She discusses having followed up via telehealth with Dr. Garvin in recommendations were discussed regarding what sounds like potential Botox for patient's urge incontinence. Recent retroperitoneal ultrasound results were reviewed with the patient today. 12/24 bilateral kidneys are normal in size, contour, and echogenicity. No hydronephrosis or renal calculi noted bilaterally. There is an upper pole simple cyst in the right kidney measuring 1.2 cm. The bladder is well distended and normal. Postvoid residual volume 138 mL. We did discuss borderline elevated postvoid residuals in relation to recurrent urinary tract infections as well as in the setting of OAB medications. We also discussed further treatment options of urge incontinence and risks and benefits of these treatment options. Information provided regarding urodynamics. PREVIOUS NOTE: Urge incontinence Had responded to Myrbetriq 50 mg p.o. b.i.d. but associated with headaches Effective control gained with tolterodine and topical estradiol Side effects acceptable Patient with a midline cystocele offered treatment patient does not wish to pursue treatment she remains asymptomatic. 05/11/2019 Elevated BMI increase activities and decrease her calories Prolapse Repair at [facility] June 2021 Good outcome regarding this stress incontinence. 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 Angina pectoris Urgency incontinence Surgical History History of surgery Social History Household Members: Spouse Housing: Apartment Alcohol intake: never Patient Tobacco Use Status: Never used Tobacco service: No Review of Systems Const Reports no additional complaints Eyes Reports no additional complaints ENT Reports no additional complaints Card Reports as per HPI Resp Reports no additional complaints GI Reports no additional complaints Reports as per HPI Musc Reports no additional complaints Neuro Reports no additional complaints Psych Reports no additional complaints Endo Reports no additional complaints Kyaw/Lymph Reports no additional complaints Aller/Immun Reports no additional complaints Physical Exam Const General: cooperative, comfortable, no acute distress, well developed, alert and awake Nutritional Appearance: overweight Orientation/consciousness: patient oriented x3 Limitations: ambulation with walker HEENT Head: Yes normal to inspection, Yes normocephalic and Yes atraumatic Ears: hearing grossly normal bilaterally Neck Neck: Yes normal visual inspection and Yes trachea midline Chest Chest palpation & inspection: normal inspection of the chest Resp Effort & Inspection: normal respiratory effort and able to speak in complete sentences Cardio Rate: regular rate GI Inspection: Yes normal to inspection General: Yes no CVA tenderness Back/Spine/Pelvis Back: no CVA tenderness Skin Other: Bilateral lower extremity edema right side greater than left General skin exam: no rashes or lesions noted Neuro General: patient oriented x3 Extrem General: Yes normal to inspection Psych Appearance: grossly normal and well kempt Mental Status: mental status grossly normal Speech and movement: Normal speech and movement present and Clear speech present Affect: normal affect Attitude: cooperative Thought process: Normal thought process present Thought content: Normal thought content present Insight: Fair insight present (Psych) Judgement: Fair judgement present (Psych) Office Procedures Post Void Residual Post Residual Void Post Void Residual (PVR): 159 [id number] Void Residual by ultrasound Results AMB Urinalysis, Automated UA Leukoctes 500 Edmund/uL Last Edit by MICHAEL Yates on 01/21/25 08:21 UA Nitrite Last Edit by MICHAEL Yates on 01/21/25 08:21 UA Urobilinogen 3.5 mg/dL Last Edit by MICHAEL Yates on 01/21/25 08:21 UA Protein 0 mg/dL Last Edit by MICHAEL Yates on 01/21/25 08:21 UA pH 7. Last Edit by MICHAEL Yates on 01/21/25 08:21 UA Blood 0 Umer/uL Last Edit by MICHAEL Yates on 01/21/25 08:21 UA Specific Cushing 1.010 Last Edit by MICHAEL Yates on 01/21/25 08:21 UA Ketone Last Edit by MICHAEL Yates on 01/21/25 08:21 UA Bilirubin 0 mg/dL Last Edit by MICHAEL Yates on 01/21/25 08:21 UA Glucose 0 mg/dL Last Edit by MICHAEL Yates on 01/21/25 08:21 Results Reviewed Results Reviewed: Laboratory Last Values Urine pH (Auto) 7. 01/21/25 08:20 Specific Cushing (Auto) 1.010 01/21/25 08:20 Urine Protein (Auto) 0 mg/dL 01/21/25 08:20 Glucose (UA)(Auto) 0 mg/dL 01/21/25 08:20 Urine Blood (Auto) 0 Umer/uL 01/21/25 08:20 Urine Bilirubin (Auto) 0 mg/dL 01/21/25 08:20 Urine Urobilinogen (Auto) 3.5 mg/dL 01/21/25 08:20 Leukocyte Esterase (Auto) 500 Edmund/uL 01/21/25 08:20 Date of Service: 12/28/24 Procedure(s): US retroperitoneal comp FINDINGS: RIGHT KIDNEY: 8.7 x 5 x 1 x 4.8 cm (SAG x AP x TRV). The kidney is normal in size, contour, and echogenicity. Renal cortical thickness is normal. No calculi or fissures focal parenchymal lesions. No hydronephrosis. There is an upper pole simple cyst measuring 1.0 x 1.2 x 1.2 cm. LEFT KIDNEY: 9.7 x 4.1 x 4.0 cm (SAG x AP x TRV). The kidney is normal in size, contour, and echogenicity. Renal cortical thickness is normal. No calculi or focal parenchymal lesions. No hydronephrosis. BLADDER: Well distended and normal. Bilateral ureteral jets are demonstrated. Prevoid bladder volume is 154 mL. Postvoid bladder volume is 138 mL. IMPRESSION: 1. Essentially normal kidneys bilaterally. 2. Normal appearing urinary bladder. Significant post void residual of estimated 138 mL. Assessment & Plan Assessment & Plan (1) Urinary tract infection: Code(s): N39.0 - Urinary tract infection, site not specified Category: Medical (2) Lower urinary tract symptoms: Code(s): R39.9 - Unspecified symptoms and signs involving the genitourinary system Category: Medical (3) Urgency incontinence: Code(s): N39.41 - Urge incontinence Category: Medical Plan In office urinalysis results reviewed with the patient today. PVR 159 mL. Continue Estrace cream as well as Gemtesa as prescribed. We discussed importance of timed/scheduled voiding in relation to urge incontinence and patient has decreased mobility. We discussed further workup to include in office cystoscopy and or urodynamics if symptoms persist and/or worsen. We discussed potential causes of urinary tract infections, stress incontinence, in lower urinary tract symptoms. Discussed UTI prevention with D mannose supplement, vitamin-C, increasing fluid intake, behavioral therapy with timed voiding, perineal hygiene and postcoital voiding, and management of constipation with stool softeners and increased fiber intake. We discussed attempting to double void to assist with bladder emptying. We also discussed incomplete bladder emptying in the setting of Gemtesa as well as recurrent urinary tract infections. Recent retroperitoneal ultrasound results reviewed with the patient today; as noted above. All questions were answered. Follow-up in 3-6month with imaging and PVR; or sooner with any issues, concerns, and or questions Orders: Orders AMB Urinalysis Automated Today Z13.9 - Encounter for screening, unspecified AMB Post Void Residual by ultrasound Today N39.41 - Urge incontinence Medications: Discontinued metronidazole Discontinued Reason: Doctor's Order 500 mg PO TID 7 days 21 tabs 0RF Patient Instructions: The patient had an opportunity to ask questions regarding the treatment plan. All questions were answered. Physical exam, labs, and imaging were discussed and reviewed in detail. As well as risks, benefits, and discussion of treatment choices. No major barriers to understanding were identified. The patient expressed understanding and agreement with the above treatment plan. The patient was made aware they should contact our office by phone for worsening of their current condition, the appearance of new symptoms, or with any questions or concerns. Compliance is encouraged with any medications and follow up testing that is ordered. It is a privilege to be allowed the opportunity to participate in? your urological care.? Again, if you have any questions or concerns If you have any questions or concerns please do not hesitate to contact me. The office is [phone]. This note is constructed using voice recognition software. While every effort has been made to ensure accuracy test clerk errors may have been included. Yours sincerely, ISAURA Jiménez Coding Level of Care Code Est Pt Level 3 (59264) Complex EM visit Add On G2211 Diagnoses Urinary tract infection N39.0 Lower urinary tract symptoms R39.9 Urgency incontinence N39.41 CPT Codes Post Residual Void - PVR CPT Code: 87239-Eece Void Residual by ultrasound ([id number])
== END 2025-01-21 08:50 | disposition home or self-care (01) ==
LOC: HO.HUSH 07:57
PROVIDERS: PCP Family Medicine; Visit Provider Nurse Practitioner Family
DX: N39.0 Urinary tract infection, site not specified (principal); R39.9 Unspecified symptoms and signs involving the genitourinary system; N39.41 Urge incontinence; Z13.9 Encounter for screening, unspecified
CPT/HCPCS: 99213; G2211

== ENCOUNTER → 2025-01-21 07:57 | Outpatient (BNVA) | payer OTHER, SELFPAY | PROVIDERS: PCP Family Medicine; Visit Provider Nurse Practitioner Family | DX: N39.41 Urge incontinence (principal); N39.0 Urinary tract infection, site not specified; R39.9 Unspecified symptoms and signs involving the genitourinary system | CPT/HCPCS: 51798; 81003; 99212 ==

== ENCOUNTER 2025-02-26 10:54 | Outpatient (REF) | payer OTHER, SELFPAY ==
--- NOTE | ~2025-02-26 | XR_ITS ---
EXAMINATION: XR FACIAL BONES CLINICAL INFORMATION: Pain around left eye, s/p fall, bruised. COMPARISON: None available. TECHNIQUE: 3 views of the facial bones were obtained. FINDINGS: Paranasal sinuses are clear. No fracture line is identified. XR/XR facial bones min 3V IMPRESSION: No fractures identified on x-ray. If there is continued clinical concern, consider CT facial bones without contrast Electronically signed by: Malcolm Costa MD 02/26/2025 11:41 AM EDT
--- OUTSIDE RECORDS SUMMARY | 2025-02-26 13:55 | XMS_ITS | Data Portability ---
Author Organization [employer] [facility] [facility], [facility] Address [address] [place] [address] Care Team Providers Care Shot Core Drill Operator Helper Name Role Phone Unavailable Primary Care Provider [phone] HIM CCA OTHER Assessment Encounter Date Assessment Date Assessment LastModified by Organization Details LastModified Time 03/29/2024 03/29/2024 I have reviewed and agree with the Assessment and Plan as documented by the Pulmonary Disease Specialist. I provided real-time medical direction via phone [...] would benefit from close PCP follow up. pallfather Not available 03/30/2024 09:30:10 Plan of Treatment Reminders Order Date Submit Date Provider Last Modified By Organization Details Last Modified Time Details Appointments None recorded. Lab None recorded. Referral None recorded. Procedures None recorded. Surgeries None recorded. Imaging None recorded. Medication Orders doxycycli ne hyclate 100 mg tablet 2023 [facility]24 [facility] [address] [place], [place], [phone], 20:12:38 doxycycli ne hyclate 100 mg capsule 2023 024 [facility], [address] [place], [place], [phone], 4 07:34:34 Patient TargetsNo targets recorded. Patient [...] blood by Pulse oximetry Heart rate Systolic And Diastolic Provider Name and Address Organization Details Last Updated DateTime 4 98.4 [degF] 86277.4 g 14 /min 157.48 cm 97 % 97 % 72 /min 128/80 mm[Hg] Not Available [facility] - production 20:11:13 Social History None recorded. Functional Status None recorded. Mental Status None recorded. Family History Nothing Reported. Medical History No medical history recorded. Gynecological HistoryNo gynecological history recorded. Obstetrics History GPAL:G 0 P 0 0 0 0 Past Encounters Encounter ID Performer Location Encounter Start Date Encounter Closed Date Diagnosis/Indication Diagnosis SNOMED-CT Code Diagnosis ICD10 Code Diagnosis IMO Codes Diagnosis Note [id number] Antione Johns MD [facility] - [facility] [address] [place] [phone] 03/29/2024 20:11:04 03/30/2024 15:33:48 Cellulitis of lower limb 914782053 L03.119 Health Concerns Section Related Observation LastModified by Organization Detai ls LastModified Time None Recorded Concern Status LastModified by Organization Details LastModified Time None Recorded Advance Directives Directive None Recorded Payers Insurance Date Sequence Insurance Name Policy Number Policy Cooper Covered Member ID Cooper Member ID Guarantor Name 03/29/2024 1 [facility] - DOS ON OR AFTER 2022 - DUAL ELIGIBLE - [facility] OPTIONS AND ONE CARE (MEDICARE REPLACEMENT/ADV ANTAGE - HMO) Ariana Martinez [id number] Ariana Martinez Notes Date Note Type Note [...] ................... ................... ................... ................... ................... ................... ........ Pulmonary Disease Specialist Note From Quintin Juarez: Patient alert and oriented, strong language barrier most information through on scene revenue field agent. Patient complains of right lower leg pain, [...] yellow liquid. Good CSM in right leg. [facility] [place] doxycycline 100 mg PO now and will call in more to patient s local pharmacy. [facility] advises patient symptoms improve in three days to go to ED for evaluation and treatment. Administered doxycycline 100 mg PO without complication using the five rights. Red flags and patient education discussed wound care discussed. Patient and sister superior/caregive r demonstrate understanding of care and plan. ................... ................... ................... ................... ................... ................... ................... ........ [facility] Consulted: Antione Johns ................... ................... ................... ................... ................... ................... ................... ........ Disposition: Fulfilled Antione Johns MD [address] [facility],[address], [place], [address], [employer] 03/30/2024 09:30:19 OBGyn Episode No OBEpisode recorded.
== END 2025-02-26 10:55 | disposition home or self-care (01) ==
LOC: HO.HHCX 10:54
PROVIDERS: PCP Family Medicine; Visit Provider Family Medicine
DX: H57.12 Ocular pain, left eye (principal)
CPT/HCPCS: 70150

== ENCOUNTER → 2025-02-26 11:08 | Outpatient (BNV) | payer OTHER, SELFPAY | PROVIDERS: PCP Family Medicine; Visit Provider Radiology Diagnostic Radiology | DX: H57.12 Ocular pain, left eye (principal) | CPT/HCPCS: 70150 ==